=== PATIENT | male | born 1950 | race Caucasian/White ===

== ENCOUNTER 2023-01-11 09:35 | Outpatient (CLI) | payer OTHER, SELFPAY ==
--- NOTE | 2023-01-11 09:30 | RT.EKG_ITS ---
APPROVED REPORT Exam: Resting ECG Reason for Exam: afib Patient Location: O HR:80 bpm ECG Measurements Heart Rate 80 AXIS CO [id number] P [id number] QRSd 149 QRS 11 QT 446 T 75 QTc 515 Conclusion Atrial fibrillation...V-rate 74- 85, irreg A-activity Left bundle branch block...QRSd>120, broad/notched R Baseline wander in lead(s) III
== END 2023-01-11 09:36 | disposition home or self-care (01) ==
LOC: DI.CARD 09:35
PROVIDERS: PCP Nurse Practitioner Family; Visit Provider Internal Medicine Cardiovascular Disease
DX: I48.0 Paroxysmal atrial fibrillation
CPT/HCPCS: 93010

== ENCOUNTER → 2023-01-11 13:53 | Outpatient (BNVA) | payer OTHER, SELFPAY | PROVIDERS: PCP Nurse Practitioner Family; Referring Provider Nurse Practitioner Family; Visit Provider Internal Medicine Cardiovascular Disease | DX: Z95.2 Presence of prosthetic heart valve (principal); I48.0 Paroxysmal atrial fibrillation; I44.7 Left bundle-branch block, unspecified | CPT/HCPCS: 93005; 99203 ==

== ENCOUNTER 2023-02-19 03:17 | Outpatient (CLI) | payer OTHER, SELFPAY ==
[2023-02-19 12:32] LABS: HCT 36.3 % (40.0-50.0); MCH 24.3 pg (27.0-33.0); MCHC 30.3 % (32.0-36.0); MCV 80 fL (80-95); MPV 9.6 fL (8.0-11.0); Platelet Count 210 10^3/uL (130-400); RBC 4.52 10^6/uL (4.36-5.78); RDW-SD 64.3 fL; WBC 8.84 10^3/uL (4.4-10.8)
[2023-02-19 12:53] LABS: ALT 18 U/L (16-63); AST 20 U/L (15-37); Alkaline Phosphatase 70 U/L (46-116); Anion Gap 9.5 mmol/L (3-11); BUN 17 mg/dL (7-18); Bilirubin, Total 0.4 mg/dL (0.2-1.0); CO2 26.5 mmol/L (21.0-32.0); Calcium 8.7 mg/dL (8.5-10.1); Calculated LDL 38 mg/dL (<100); Chloride 104 mmol/L (98-107); Cholesterol 107 mg/dL (<200); Estimated GFR 80.47 (mL/min/1.73m2); Glucose 117 mg/dL (74-106); HDL Cholesterol 31 mg/dL (40-60); Potassium 4.6 mmol/L (3.5-5.1); Sodium 140 mmol/L (136-145); Total Protein 6.6 g/dL (6.4-8.2); Triglyceride 193 mg/dL (<150)
[2023-02-19 13:04] LABS: RDW 22.2 % (11.8-14.1)
== END 2023-02-19 03:18 | disposition home or self-care (01) ==
LOC: LOS 03:17
PROVIDERS: PCP Nurse Practitioner Family; Visit Provider Nurse Practitioner Family
DX: I10 Essential (primary) hypertension (principal); D64.9 Anemia, unspecified; E78.5 Hyperlipidemia, unspecified; I25.10 Atherosclerotic heart disease of native coronary artery without angina pectoris; J45.909 Unspecified asthma, uncomplicated; Z95.5 Presence of coronary angioplasty implant and graft
CPT/HCPCS: 36415; 80053; 80061; 85027

== ENCOUNTER 2023-03-22 19:39 | Outpatient (REF) | payer OTHER, SELFPAY ==
[2023-03-24 10:15] LABS: Salmonella PCR Negative (Negative); Shiga Toxin PCR Negative (Negative); Shigella/Enteroinvasive Ecoli Negative (Negative)
[2023-03-24 13:39] LABS: Campylobacter PCR Positive (Negative)
== END 2023-03-22 19:40 | disposition home or self-care (01) ==
LOC: LBN 19:39
PROVIDERS: PCP Nurse Practitioner Family; Visit Provider Family Medicine
DX: R19.7 Diarrhea, unspecified (principal)
CPT/HCPCS: 87505

== ENCOUNTER → 2023-04-02 12:37 | Outpatient (BNVA) | payer OTHER, SELFPAY | PROVIDERS: PCP Nurse Practitioner Family; Referring Provider Nurse Practitioner Family; Visit Provider Surgery | DX: R19.7 Diarrhea, unspecified (principal); K64.8 Other hemorrhoids; K59.09 Other constipation; K22.70 Barrett's esophagus without dysplasia | CPT/HCPCS: 99215; 99243 ==

== ENCOUNTER → 2023-04-16 01:11 | Outpatient (CLI) | payer OTHER, SELFPAY ==
--- NOTE | 2023-04-16 07:30 | DI.US_ITS ---
Exam(s) US ABDOMEN EXAM: US ABDOMEN CLINICAL HISTORY: hx of liver cancer/chemo only/no recent f/u,z92.29,c22.9,anemia TECHNIQUE: Ultrasound abdomen performed using standard protocol. COMPARISON: No exams were available for comparison FINDINGS: ABDOMINAL AORTA AND IVC: Visualized portions normal caliber. PANCREAS: Obscured by overlying bowel gas. LIVER: There is limited visualization of the liver due to body habitus. An MRI of the liver should b e considered for further evaluation. Hepatopedal flow in the Portal Vein. 16.7 cm long. GALLBLADDER:No evidence of cholelithiasis. No evidence of wall thickening. No pericholecystic fluid i dentified. BILIARY SYSTEM: Common bile duct measures < 7 mm. No intrahepatic biliary ductal dilation. CASANOVA'S SIGN: Negative. KIDNEYS: Kidneys are symmetric in size. No evidence of renal calculi. No evidence of hydronephrosis. There is soft tissue fullness seen in the renal pelvis of the left kidney. A mass cannot be excluded . SPLEEN: Not enlarged. ASCITES: None seen. IMPRESSION: 1. This is a limited examination particularly of the liver and left kidney. 2. An MRI of the abdomen to include the both the liver and the kidney is recommended to exclude amari s. DATA REPOSITORY:
== END ==
PROVIDERS: PCP Nurse Practitioner Family; Visit Provider Surgery
DX: C22.9 Malignant neoplasm of liver, not specified as primary or secondary (principal); D50.9 Iron deficiency anemia, unspecified; Z92.29 Personal history of other drug therapy
CPT/HCPCS: 76700

== ENCOUNTER 2023-05-11 01:51 | Outpatient (CLI) | payer OTHER, SELFPAY ==
[2023-05-11 12:23] LABS: Abs Immature Grans 0.02 10^3/uL (0.0-0.06); Absolute Basophil Count 0.06 10^3/uL (0.0-0.2); Absolute Eosinophil Count 0.36 10^3/uL (0.0-0.7); Absolute Monocyte Count 0.48 10^3/uL (0.1-0.8); Absolute Neutrophil Count 4.55 10^3/uL (1.2-6.7); Basophils % 0.9; Eosinophils % 5.6; HCT 38.4 % (40.0-50.0); HGB 12.5 g/dL (13.5-17.5); Immature Grans % 0.3; Lymphocytes % 15.5; MCH 28.1 pg (27.0-33.0); MCHC 32.6 % (32.0-36.0); MCV 86 fL (80-95); MPV 10.3 fL (8.0-11.0); Monocytes % 7.4; Neutrophils % 70.3; Platelet Count 159 10^3/uL (130-400); RBC 4.45 10^6/uL (4.36-5.78); RDW 16.5 % (11.8-14.1); RDW-SD 52.1 fL; WBC 6.47 10^3/uL (4.4-10.8)
[2023-05-11 13:20] LABS: Ferritin 40 ng/mL (26-388); Vitamin B12 317 pg/mL (193-986)
[2023-05-11 13:21] LABS: Folate > 20.0 ng/mL (8.6-20.0)
== END 2023-05-11 01:52 | disposition home or self-care (01) ==
LOC: LBO 01:51
PROVIDERS: PCP Nurse Practitioner Family; Visit Provider Surgery
DX: I10 Essential (primary) hypertension (principal); I25.10 Atherosclerotic heart disease of native coronary artery without angina pectoris; E78.5 Hyperlipidemia, unspecified; R19.7 Diarrhea, unspecified; Z92.29 Personal history of other drug therapy; K22.70 Barrett's esophagus without dysplasia
CPT/HCPCS: 36415; 82607; 82728; 82746; 85025

== ENCOUNTER → 2023-05-17 11:11 | Outpatient (BNVA) | payer OTHER, SELFPAY | PROVIDERS: PCP Nurse Practitioner Family; Referring Provider Nurse Practitioner Family; Visit Provider Surgery | DX: D64.9 Anemia, unspecified (principal); I25.10 Atherosclerotic heart disease of native coronary artery without angina pectoris; E78.5 Hyperlipidemia, unspecified; Z85.028 Personal history of other malignant neoplasm of stomach | CPT/HCPCS: 99213 ==

== ENCOUNTER 2023-05-25 10:45 | Day surgery (SDC) | payer OTHER, SELFPAY ==
--- NOTE | 2023-05-24 21:56 | W.PM.ENDDOP ---
Date of service: 05/25/23 Time of Service: 13:05 Endoscopy Report DATE OF PROCEDURE: 05/25/23 PRE-OP DIAGNOSIS: Anemia/history of gastric ulcers/gastric resection for cancer POST-OP DIAGNOSIS: other (X2 anastomotic ulcers/mild gastritis/ small hiatal hernia/ Queen's esophagus) SURGEON: Collette Ugarte ANESTHESIA TYPE: General:No Airway ESTIMATED BLOOD LOSS: 4 PATHOLOGY: other COMPLICATIONS: None DISPOSITION: same day PROCEDURE DESCRIPTION: After informed consent was obtained the patient was take to the procedure room and placed in a supine position. Monitors were applied and a time out was done. The patients name, date of , procedure type, allergies to medications and metal in their body was reviewed. A bite block was placed and the patient was sedated. Once sedated and comfortable the gastroscope was advanced through the oropharynx which was grossly normal into the esophagus. He has some erosions in the upper esophagus that appeared to be more chronic in nature. A biopsy of this was taken. In the distal esophagus there was no: Varices/diverticula/stenosis. The scope was advanced into the stomach. Patient has had a previous distal gastrectomy. He is to ulcers with overlying eschar at the anastomosis. There is no signs of active or old bleeding. Biopsies were taken. The scope is passed into the jejunal limb. The mucosa appears pink and healthy. Biopsy was taken. There are some mild gastritis in the body of the stomach. A biopsy was taken along the greater curve. There is no sign of any tumor recurrence. Biopsies were done, all specimens are retrieved and no bleeding is noted.. The scope was retracted back into the stomach and biopsies were done to rule out H. pylori. The scope was retroflexed. The cardia and fundus were noted to be normal. There small less than 2 cm sliding-type hiatal hernia a hiatal hernia noted. The scope was retracted back into the esophagus and biopsies were done of the GE, The Z line was irregular. He had multiple islands indicative of Queen's. Multiple biopsies were taken. There is no active assessment esophagitis. The GE junction was at 38 cm. The scope was removed and the patient was woken up and taken back to [facility] in stable condition.
--- NOTE | 2023-05-24 21:57 | W.PM.DSUDISC ---
Date of service: 05/25/23 Time of Service: 13:08 Discharge Plan Disposition Patient Disposition: Home Condition: Good Discharge Details Reason For Visit: Stomach scope Attending Provider: Collette Ugarte Primary Care Provider: Drea Martines Home Meds and New Rx's Prescriptions: New pantoprazole [Protonix] 40 mg tablet,delayed release (DR/EC) 40 mg PO DAILY Qty: 90 12RF Continued famotidine 20 mg tablet 20 mg PO BID Qty: 180 3RF metoprolol succinate 50 mg tablet extended release 24 hr 50 mg PO DAILY Qty: 90 3RF albuterol sulfate [ProAir HFA] 90 mcg/actuation HFA aerosol inhaler 2 puff inhalation Q6H PRN (Reason: shortness of breath or wheezing) Qty: 8.5 3RF alfuzosin 10 mg tablet extended release 24 hr 10 mg PO DAILY Qty: 90 3RF Rx Instructions: administer after the same meal each day amlodipine 10 mg tablet 10 mg PO DAILY Qty: 90 3RF bupropion HCl 150 mg tablet sustained-release 12 hr 150 mg PO QAM Qty: 90 3RF Trelegy Ellipta 100-62.5-25 mcg blister with device 1 inh inhalation DAILY Qty: 60 3RF furosemide 20 mg tablet 20 mg PO DAILY Qty: 90 3RF lisinopril 20 mg tablet 20 mg PO DAILY Qty: 90 3RF paroxetine HCl 20 mg tablet 20 mg PO DAILY Qty: 90 3RF rosuvastatin 20 mg tablet 20 mg PO DAILY Qty: 90 3RF hydrocortisone acetate [Anusol-HC] 25 mg suppository 25 mg TN BID PRN (Reason: hemorrhoids) Qty: 24 1RF cyclobenzaprine 5 mg tablet 5 mg PO TID PRN (Reason: back pain) Qty: 14 0RF Rx Instructions: Take 1 tablet by mouth three times a day as needed for back pain sucralfate [Carafate] 1 gram tablet 1 g PO QACHS Qty: 120 12RF melatonin 10 mg tablet 10 mg PO DAILY PRN ferrous sulfate 325 mg (65 mg iron) tablet 325 mg PO DAILY Qty: 90 1RF Rx Instructions: Take 1 tablet once a day with your vitamin c or a glass of orange juice Held Eliquis 5 mg tablet 5 mg PO BID Qty: 180 3RF Hold Instructions: Resume on 05/27/23. Discontinued omeprazole 20 mg capsule,delayed release(DR/EC) 20 mg PO BID Qty: 180 3RF Discharge Instructions Additional Instructions: Post EGD Instruction ?You had anesthesia for your EGD/stomach scope today.? For your safety, please do the following for the next twenty-four (24) hours: Do Not operate a motor vehicle (car, truck, motorcycle, etc.) Do Not drink alcoholic beverages or use any recreational drugs for the first 24 hours or while taking pain medications. The medications in your body may have a reaction that can be dangerous. Do Not make any important decisions or sign any important papers You have just had a gastroscopy (EGD) or upper GI tract examination. It is important for your smooth recovery that you carefully follow the recommendations below. Do not hesitate to call if any questions should arise about your anesthesia, condition, or care. -Symptoms you may experience during the next 24 hours: ?1. Mild abdominal pain or excessive gas or a bloated feeling which improves with rest, liquids, eating? slightly, and walking as tolerated. 2. Drowsiness and/or forgetfulness because of the medications you were given. ?3. Throat numbness for about 1 hour. 4. A sore throat which you can treat with throat lozenges or by gargling with salt water 4-5 times a day. 5. Redness at the site of your IV which you can treat with warm compresses. SPECIAL INSTRUCTIONS: 1. You may resume your previous diet in one hour. We recommend a light meal to start, then progress as tolerated. 2. Restart regular medications in one hour. 3. No aspirin or non-steroidal containing medication for three days. 4. No lifting over 20 pounds or strenuous activity for the first 24 hours after your procedure. After 24 hours there are no restrictions on your activity, but you may feel fatigued for a few days. Findings: bleeding ulcers Medications: -Continue Pepcid and Carafate as previously prescribed. Stop omeprazole Start Protonix once a day Follow-up in clinic in 2 weeks / lab work prior to the appointment. -Resume Eliquis on Sunday -Continue to follow lifest prescribedyle modifications: No alcohol, tobacco products, Aspirin or NSAID's (ibuprofen, Motrin, Naprosyn, aleve, etc).? Try to limit/avoid:? soda pop/any carbonated beverages, caffeine (including tea & chocolate), and acidic foods, (tomatoes, citrus, onions, peppermints) spicy or fried/fatty foods. Do not lie down for 30 minutes after eating, and do not eat 2 hours prior to bedtime. Avoid wearing tight fitting clothing/ belts. Call the office at [phone] (Office) or [phone] (Hospital), or go to the ER right away if you notice any of the followin. Vomiting blood and /or ?coffee ground? material. ?2. Worsening of abdominal pain or cramping. ?3. Trouble with breathing, cough, and/or fever (temperature above 101.5 F). 4. Increasing pain with swallowing. ?5. Chest pain. 6. Any new symptoms. 7. Worsening of the redness at the IV site Activity:: See above Diet:: See above Discharge Orders Discharge Orders: Discharge Order (Routine); Ordered 05/25/23 Ordered By: Collette Ugarte DS: Diagnosis Discharge Diagnosis (1) Essential hypertension: Status: Acute (2) Coronary arteriosclerosis: Status: Acute (3) Hyperlipidemia: Status: Acute (4) Asthma: Status: Chronic (5) Anxiety: Status: Chronic (6) Heartburn: Status: Acute (7) Anemia: Status: Chronic (8) GERD (gastroesophageal reflux disease): Status: Chronic (9) LBBB (left bundle branch block): Status: Acute (10) Paroxysmal atrial fibrillation: Status: Acute (11) Diarrhea: Status: Acute (12) Hx of residential use of blood thinners: Status: Acute (13) Hiatal hernia with GERD: Status: Acute (14) Gastric cardia ulcer: Status: Acute (15) Microcytic anemia: Status: Acute (16) Esophageal candidiasis: Status: Acute (17) History of cigarette smoking: Status: Acute (18) Emphysema lung: Status: Acute (19) Chronic constipation: Status: Acute (20) Left atrial dilation: Status: Acute (21) 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 Patient has minimal sore throat.? They have been able to tolerate liquids.? They do not have any nausea vomiting.? They are not having any chest pain or shortness of breath.? They have been able to pass gas and are not having any abdominal pain or distention.? They have not vomited any blood.? The vital signs have been stable-see nursing notes. We discussed findings on their endoscopy. We reviewed the importance of lifestyle modification-see discharge instructions We reviewed any new medications that the patient may be prescribed-see discharge instructions Patient will either be sent a letter with the biopsy results or follow-up in the office-see discharge instructions. Patient was given explicit instructions to follow-up regarding post endoscopy-refer to discharge Patient verbalized understanding and discharged in stable and satisfactory condition.? See nursing notes. (27) Liver cancer: (28) Myocardial infarct, old: (29) PTSD (post-traumatic stress disorder): (30) Stomach cancer:
[2023-05-25 11:41] VITALS: BP 146/98; PULSE 81; RESP 18; TEMP 36.7; O2SAT 99
[2023-05-25] MEDS: Lactated Ringers 1,000 ML 80 ML IV (11:56)
--- NOTE | 2023-05-25 12:02 | W.ANESPRE ---
General Info Date of Service Date Performed: 05/25/23 Height: 6 ft Weight: 87.2 kg Body Mass Index (BMI): 26.0 Surgical Procedure: Operation Date: 05/25/23 12:05 Proposed Procedure Side Surgeon p Gastroscopy Collette Ugarte, Meds Allergies and Home Medications Allergies Allergy/AdvReac Type Severity Reaction Status Date / Time fenofibrate Allergy Unknown Verified 05/25/23 11:28 Home Medication Medication Instructions Recorded melatonin 10 mg tablet 10 mg PO DAILY PRN 12/20/22 albuterol sulfate 90 mcg/actuation 2 puff inhalation Q6H PRN 12/27/22 aerosol inhaler (ProAir HFA) shortness of breath or wheezing #8.5 grams alfuzosin 10 mg tablet,extended 10 mg PO DAILY #90 tabs 12/27/22 release 24 hr amlodipine 10 mg tablet 10 mg PO DAILY #90 tabs 12/27/22 apixaban 5 mg tablet (Eliquis) 5 mg PO BID #180 tabs 12/27/22 bupropion HCl 150 mg tablet,12 hr 150 mg PO QAM #90 tabs 12/27/22 sustained-release famotidine 20 mg tablet 20 mg PO BID #180 tabs 12/27/22 fluticasone fur. 100 mcg-umeclid 1 inh inhalation DAILY #60 ea 12/27/22 62.5 mcg-vilant 25 mcg inhalat.powder (Trelegy Ellipta) furosemide 20 mg tablet 20 mg PO DAILY #90 tabs 12/27/22 lisinopril 20 mg tablet 20 mg PO DAILY #90 tabs 12/27/22 metoprolol succinate 50 mg 50 mg PO DAILY #90 tabs 12/27/22 tablet,extended release 24 hr omeprazole 20 mg capsule,delayed 20 mg PO BID #180 caps 12/27/22 release paroxetine HCl 20 mg tablet 20 mg PO DAILY #90 tabs 12/27/22 rosuvastatin 20 mg tablet 20 mg PO DAILY #90 tabs 12/27/22 cyclobenzaprine 5 mg tablet 5 mg PO TID PRN back pain #14 tabs 02/06/23 hydrocortisone acetate [address] BID PRN hemorrhoids #24 ea 02/06/23 rectal suppository (Anusol-HC) ferrous sulfate 325 mg (65 mg 325 mg PO DAILY #90 tabs 03/13/23 iron) tablet sucralfate 1 gram tablet (Carafate) 1 g PO QACHS #120 tabs 04/03/23 Current Visit Medications: Current Medications Generic Name Dose Route Start Last Admin Trade Name Samq PRN Reason Stop Dose Admin Hyoscyamine Sulfate 0.125 mg 05/25/23 04:27 Hyoscyamine 0.125 Mg Sl/Oral/Chew SL 06/24/23 04:26 DIRECTED PRN Ringer's Solution 1,000 mls @ 80 mls/hr 05/25/23 06:00 IV 05/25/23 23:59 [facility] IV Miscellaneous Supplies 1 each 05/25/23 06:00 Iv Access IV 05/25/23 23:59 DIRECTED MANPREET Ondansetron HCl 4 mg 05/25/23 04:27 Ondansetron 4 Mg/2 Ml Vial IVP 06/24/23 04:26 Q4H PRN PRN Nausea / Vomiting Sodium Chloride 0 ml 05/25/23 06:00 Normal Saline Flush 10 Ml Syr IV 05/25/23 23:59 PRN PRN Sodium Chloride 0 ml 05/25/23 06:00 Normal Saline 10 Ml Vial IJ 05/25/23 23:59 DIRECTED PRN Sterile Water 0 ml 05/25/23 06:00 Water,Injection,Sterile 10 Ml Vial IJ 05/25/23 23:59 DIRECTED PRN PFSH Active Problems Active Problems: Problem Status Onset Code Essential hypertension I10 Coronary arteriosclerosis I25.10 Hyperlipidemia E78.5 Asthma J45.909 Anxiety F41.9 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 Heartburn R12 Anemia D64.9 Impotence of organic origin N52.9 GERD (gastroesophageal reflux disease) K21.9 LBBB (left bundle branch block) I44.7 Paroxysmal atrial fibrillation I48.0 Diarrhea R19.7 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.29 Hiatal hernia with GERD K21.9, K44.9 Gastric cardia ulcer K22.10 Microcytic anemia D50.9 Esophageal candidiasis B37.81 Adenomatous polyps D36.9 History of cigarette smoking Z87.891 Emphysema lung J43.9 External hemorrhoid K64.4 Chronic constipation K59.09 Left atrial dilation I51.7 Mitral regurgitation I34.0 Carotid stenosis, asymptomatic I65.29 Internal hemorrhoids without complication K64.8 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 K22.70 History of gastric cancer Z85.028 History of malignant neoplasm metastatic to liver Z85.89 Medical History Medical History Aortic stenosis w TAVR in [place] 05/31/22 [place] History of gastrectomy Liver cancer Myocardial infarct, old w stent placed in [place] 2001 PTSD (post-traumatic stress disorder) Stomach cancer Surgical History Surgical History H/O left knee surgery H/O rotator cuff surgery (~01/19/09) Right History of appendectomy History of colonoscopy History of esophagogastroduodenoscopy (EGD) History of Titi-en-Y gastric bypass Hx of heart artery stent x3 in [place] 2001 Hx of tonsillectomy Tobacco Smoking/Tobacco Use Status: Former Tobacco Use Passive smoking exposure: Yes Second hand exposure: Yes Alcohol Alcohol Intake: former Substance Use Substance use type: former substance user Vital Signs and Lab Results Vital Signs Most Recent Vital Signs in EMR: Most Recent Vital Signs Temp Pulse Resp BP Pulse Ox 36.7 C 81 18 146/98 H 99 05/25/23 11:41 05/25/23 11:41 05/25/23 11:41 05/25/23 11:41 05/25/23 11:41 Lab Results Blood Type / Crossmatch: No Data to Display Complete Blood Count: White Blood Count 6.47 10^3/uL (4.4-10.8) 05/11/23 12:05 Red Blood Count 4.45 10^6/uL (4.36-5.78) 05/11/23 12:05 Hemoglobin 12.5 g/dL (13.5-17.5) L 05/11/23 12:05 Hematocrit 38.4 % (40.0-50.0) L 05/11/23 12:05 Platelet Count 159 10^3/uL (130-400) 05/11/23 12:05 Complete Metabolic Panel: No Data to Display Liver Function Panel: No Data to Display Coagulation Panel: No Data to Display Cardiac Panel: No Data to Display Arterial Blood Gas: No Data to Display Venous Blood Gas: No Data to Display Pancreas Panel: No Data to Display Thyroid Panel: No Data to Display Infectious Disease: No Data to Display Blood Cultures: No Data to Display Toxicology Panel: No Data to Display Imaging and Studies Imaging and Studies Study information below may be from another EMR and interpreted by another provider. Please see original notes in EMR for more complete details. EKG Summary: Conclusion Atrial fibrillation...V-rate 74- 85, irreg A-activity Left bundle branch block...QRSd>120, broad/notched R Baseline wander in lead(s) III 01/11/23 Echocardiogram Summary: YISSEL 2021 Mild to moderate MR, normal function of prosthetic aortic valve Anesthesia Assessment and Plan Anesthesia History Personal History: No History of Anesthesia Complications Family History: No Family History of Anesthesia Complications Exercise Tolerance Exercise Tolerance: Metabolic Equivalents<4 Pertinent Negatives Pertinent Negatives: No Symptoms of GERD, No Major Cardiovascular Symptoms or Complaints and No Major Pulmonary Symptoms or Complaints Cardiac & Pulmonary Exam Cardiac Exam: Normal S1/S2 Heart Sounds Pulmonary Exam: Clear Bilateral Breath Sounds Implantable Cardiac Device Does patient have a Pacemaker or an ICD?: No Airway Exam Known Difficult Airway: No Mallampati Class: 1 Mouth Opening: Normal (> 3cm) Thyromental Distance: Greater than 3 cm Neck Range of Motion: Full ROM Neck Circumference: Normal Teeth Condition: Edentulous ASA Classification ASA Score: ASA 3 Emergency Case?: No NPO Status NPO Status: NPO Clears >2 hours, Solids >8 hours Anesthesia Plan Resuscitation Status: Full Code Anesthesia Technique: General Anesthesia Airway Planned: Natural Airway Monitors Used: Standard Monitors
[2023-05-25 12:03] VITALS: BMI 26.0
--- NOTE | 2023-05-25 12:42 | STOM_PTH ---
PATIENT: Agustin Bain LOC: [facility] U#:[id number] AGE/SX: 73/M ROOM: RE05/25/[address]: Collette Ugarte : 1950 BED: DIS: 05/25/2023 SPEC #: [id number] RECD: 05/25/23 17:54 STATUS: JULITO MCCORMACK #: [id number] YARELI: 05/25/23 12:[address]: Collette Ugarte DEPT: Surgical Specimen RECD BY: Nella Guevara ENTERED: 05/25/23 17:58 SP TYPE: STOMACH OTHR DR: Drea Martines, GUIDE DOG INSTRUCTOR Tissues: 1 - BIOPSY BOWEL 2 - BIOPSY BOWEL 3 - STOMACH BIOPSY 4 - ESOPHAGUS BIOPSY 5 - ESOPHAGUS BIOPSY 6 - ESOPHAGUS BIOPSY Procedures: GROSS AND MICRO LEVEL 4 Comments: [id number]
[2023-05-25 12:55] VITALS: BP 99/75; PULSE 96; RESP 16; TEMP 36.3; O2SAT 96
[2023-05-25 13:30] VITALS: BP 123/97; PULSE 88; RESP 18; TEMP 36.2; O2SAT 98
--- NOTE | 2023-05-25 14:19 | W.ANESPOSTOP ---
Postoperative Evaluation Date, Time and Location Date Performed: 05/25/23 Time Performed: 14:04 Patient Location: Day Surgery Unit Vital Signs Most Recent Imported Vital Signs: Most Recent Vital Signs Temp Pulse Resp BP Pulse Ox 36.2 C L 88 18 123/97 H 98 05/25/23 13:30 05/25/23 13:30 05/25/23 13:30 05/25/23 13:30 05/25/23 13:30 Pain Score Most Recent Pain Score: Most Recent Pain Score Pain Level 0 05/25/23 13:30 Assessment Mental Status: Awake (Alert & Oriented to Patient Baseline) Airway and Respiratory Function: Patent airway with normal (patient baseline) respiratory exam Cardiovascular Function: Hemodynamically Stable Hydration Status: Adequately Hydrated Nausea & Vomiting: No Nausea or Vomiting Pain: Pt. Denies Any Pain Peripheral Nerve Block: Patient did not receive a nerve block
== END 2023-05-25 14:10 | disposition home or self-care (01) ==
PROVIDERS: PCP Nurse Practitioner Family; Visit Provider Surgery
PROC: 0DJ68ZZ Inspection of Stomach, Via Natural or Artificial Opening Endoscopic (ICD-10-PCS; CPT 43235; principal; 2023-05-25 12:00)
DX: K28.9 Gastrojejunal ulcer, unspecified as acute or chronic, without hemorrhage or perforation (principal); D64.9 Anemia, unspecified; K29.70 Gastritis, unspecified, without bleeding; K44.9 Diaphragmatic hernia without obstruction or gangrene; K22.70 Barrett's esophagus without dysplasia; Z85.028 Personal history of other malignant neoplasm of stomach; Z98.0 Intestinal bypass and anastomosis status; Z90.3 Acquired absence of stomach [part of]
CPT/HCPCS: 43239; 88305; J2001

== ENCOUNTER 2023-05-28 18:59 | Outpatient (CLI) | payer OTHER, SELFPAY ==
[2023-05-28 13:47] LABS: Abs Immature Grans 0.01 10^3/uL (0.0-0.06); Absolute Basophil Count 0.04 10^3/uL (0.0-0.2); Absolute Eosinophil Count 0.62 10^3/uL (0.0-0.7); Absolute Monocyte Count 0.52 10^3/uL (0.1-0.8); Absolute Neutrophil Count 3.39 10^3/uL (1.2-6.7); Basophils % 0.7; Eosinophils % 10.9; HCT 41.5 % (40.0-50.0); HGB 13.4 g/dL (13.5-17.5); Immature Grans % 0.2; Lymphocytes % 19.4; MCH 28.2 pg (27.0-33.0); MCHC 32.3 % (32.0-36.0); MCV 87 fL (80-95); Monocytes % 9.2; Neutrophils % 59.6; Platelet Count 154 10^3/uL (130-400); RBC 4.76 10^6/uL (4.36-5.78); RDW 15.6 % (11.8-14.1); RDW-SD 49.7 fL; WBC 5.68 10^3/uL (4.4-10.8)
== END 2023-05-28 19:00 | disposition home or self-care (01) ==
LOC: LBO 19:00
PROVIDERS: PCP Nurse Practitioner Family; Visit Provider Surgery
DX: K25.0 Acute gastric ulcer with hemorrhage (principal)
CPT/HCPCS: 36415; 85025

== ENCOUNTER → 2023-06-08 02:54 | Outpatient (CLI) | payer OTHER, SELFPAY ==
--- NOTE | 2023-06-08 08:00 | DI.MRI_ITS ---
Exam(s) MR ABDOMEN WO/W EXAM: MR ABDOMEN WO/W CLINICAL HISTORY: f/u abnl us,h/o gastric ca and mets to liver,exclude mass liver, and kidney TECHNIQUE: Multiplanar multisequence MRI was performed with both pre and post contrast infused seque nces. Contrast injected sequences were performed following IV injection of 18 cc of Dotarem. COMPARISON: US US ABDOMEN from 04/16/2023 FINDINGS: Images are submitted for interpretation 06/12/2023 VISUALIZED LUNG BASES: No pleural effusions. There is no ascites evident. LIVER: Liver size is normal. There are no significant focal findings in the right hepatic lobe. How ever, in the left hepatic lobe there is a well-defined 3 x 3 cm round ???lesion??? which is significa nt atypical in appearance, possibly artifact. This will require CT study subtle with IV contrast. BILIARY: There is no obvious gallbladder pathology. The CBD is not dilated. PANCREAS: There is no evidence of pancreatic mass nor dilatation of the pancreatic duct. SPLEEN: Spleen size normal. ADRENALS: There are no significant adrenal masses. KIDNEYS: Right kidney unremarkable. Finding in the posterior aspect of the left kidney has the appea seema of a probable subcapsular hematoma measuring 3 cm wide by 0.8 cm thick. No other focal left ki dney findings. No hydronephrosis on either side.No solid renal mass evident. No cysts. ABDOMINAL AORTA: Not enlarged and there is no significant para-aortic adenopathy. ANTERIOR ABDOMINAL WALL/GI: There is no evidence of significant anterior abdominal wall hernia in the field of view of this study.Is no evidence of obvious bowel obstruction. OSSEOUS: There are no lytic osseous lesions in the field of view of this study. IMPRESSION: 1. Solitary 3 x 3 cm around abnormality in the left hepatic lobe which does not exhibit signal charac teristics of a typical type of lesion. I suspect that this may be possibly artifact. For this reaso n I recommend that this patient return for contrast infused multiphase CT scan. 2. Finding in the posterior aspect of the left kidney has the appearance of a small subcapsular hemat brynn. No other significant focal renal findings. No hydronephrosis. DATA REPOSITORY:
[2023-06-08 13:04] LABS: CREATININE 0.9 mg/dL (0.70-1.30); Estimated GFR 90.74 (mL/min/1.73m2)
[2023-06-08] MEDS: Normal Saline - Diluent 50 ML VIAL IJ (13:25)
[2023-06-08] MEDS: Gadoterate meglumine 20 ML VIAL 18 ML IVP (13:26)
== END ==
PROVIDERS: PCP Nurse Practitioner Family; Visit Provider Surgery
DX: K25.0 Acute gastric ulcer with hemorrhage (principal); Z01.818 Encounter for other preprocedural examination; I10 Essential (primary) hypertension
CPT/HCPCS: 74183; 82565

== ENCOUNTER → 2023-06-14 11:19 | Outpatient (BNVA) | payer OTHER, SELFPAY | PROVIDERS: PCP Nurse Practitioner Family; Referring Provider Nurse Practitioner Family; Visit Provider Surgery | DX: K25.0 Acute gastric ulcer with hemorrhage (principal); K21.9 Gastro-esophageal reflux disease without esophagitis; R12 Heartburn; D50.9 Iron deficiency anemia, unspecified | CPT/HCPCS: 99214 ==

== ENCOUNTER → 2023-06-28 00:59 | Outpatient (CLI) | payer OTHER, SELFPAY ==
--- NOTE | 2023-06-28 14:00 | DI.US_ITS ---
APPROVED REPORT EXAM: Comprehensive 2D, Doppler, and color-flow Echocardiogram Patient Location: Out-Patient Line Producer: Paige Prescott RDCS (AE) Indications: Status post TAVR, HTN, Atrial Fibrillation, Aortic stenosis Other Information Study Quality: Fair. Technically limited study due to body habitus. Conclusion Normal left ventricular wall thickness and chamber size. Ejection fraction is 55%. Wall motion is n ormal Normal right ventricular size and systolic function Both atria are moderately dilated There is a bioprosthetic aortic valve. Mean gradient is 8 mmHg . there is mild aortic regurgitation which appears paravalvular Mitral annular calcification, moderate mitral regurgitation Estimated right ventricular systolic pressure is 24 mmHg Wall motion Left Ventricle Technically limited parasternal imaging. The overall left ventricular systolic function appears brittany l. There is normal LV segmental wall motion. There is no ventricular septal defect visualized. LVEF i s 55%. Right Ventricle The right ventricle is normal size. The right ventricular systolic function is normal. Atria Left atrium is moderately dilated. Right atrium is moderately dilated. The interatrial septum is int act with no evidence for an atrial septal defect. Aortic Valve TAVR aortic valve present. There is no aortic valvular stenosis. mild aortic regurgitation. Mitral Valve Mild mitral annular calcification. No evidence of mitral valve stenosis. Moderate mitral regurgitatio n. Tricuspid Valve The tricuspid valve is normal in structure. There is no tricuspid valve stenosis. Trace tricuspid reg urgitation. The RVSP is 24.3 mmHg. Pulmonic Valve Pulmonic valve is not well visualized. There is no pulmonic valvular stenosis. There is no pulmonic v alvular regurgitation. Great Vessels The aortic root is normal in size. Ascending aorta is not well visualized. Aortic arch is normal in c aliber. IVC is normal in size and collapses >50% with inspiration. Pericardium There is no pericardial effusion. M-Mode TAPSE 1.86 cm (M/F) >1.7 Auto EF LV EDV A4C 114.5 mL LV EDV A2C 123.0 mL LV EDV BP 120.7 mL LV ESV A4C 54.6 mL LV ESV A2C 56.6 mL LV ESV BP 56.1 mL LVEF(%) A4C 52.3 % LVEF(%) A2C 54.0 % LVEF(%) BP 53.5 % LV SV A4C 59.9 ml LV SV A2C 66.4 ml LV SV BP 64.6 ml LV CO A4C 4.7 L/min LV CO A2C 4.9 L/min LV CO BP 4.8 L/min HR A4C 78.09 BPM HR A2C 73.92 BPM LV EDV Index (BP) LA Volume LA Length A4C 5.4 cm LA Length A2C 5.7 cm LA Area A4C s 20.43 cm2 LA Area A2C s 25.95 cm2 LA Vol A4C A-L 66.02 mL LA Vol A2C A-L 100.05 mL LA Vol Biplane A-L 83.9 mL LA Vol/BSA A4C A-L LA Vol/BSA A2C A-L LA Vol/BSA BP A-L 55.9 mL/m2 LA Vol A4C MOD 62.8 mL LA Vol A2C MOD 93.3 mL LA Vol BP MOD 78.8 mL RA Volume RA Area A4C 21.3 cm2 RA ESV A4C (A-L) 67.7mL RA Vol/BSA A4C A-L RA Length A4C 5.7 cm RA ESV A4C (MOD) 64.4mL LV Diastology MV E' medial 0.087 (>0.07 m/s) MV E Vmax 1.47 (0.4-1.3 m/s) MV E/E' MED 16.76 (<14) MV E' lateral 0.123 (>0.1 m/s) MV E/E' LAT 11.90 (<14) MV E' Average 0.105 m/s MV E/E'(average) 13.92 Aortic Valve AoV Vmax 1.85 m/s LVOT Vmax 0.88 m/s AoV Peak Grad 13.7 mmHg LVOT Peak Grad 3.1 mmHg AoV VTI 0.349 m LVOT VTI 0.194 m AoV Mean Sourav. 1.42 m/s LVOT Mean Grad 2.1 mmHg AoV Mean Grad 8.5 mmHg Velocity Ratio 0.48 Mitral Valve MV DT 229 (160-240 msec) MV Vmax TIPS 1.51 m/s MV Mean Grad 2.6 (<2mmHg) MV VTI 0.476 m Pulmonary Valve PV Vmax 0.72 (0.5-1.5 m/s) RVOT Vmax 0.59 m/s PV Peak Grad 2.1 mmHg RVOT Peak Gr. 1.4 mmHg PV Mean Sourav 0.55 m/s RVOT VTI 0.101 m PV Mean Grad 1.3 mmHg RVOT Mean Gr. 0.7 mmHg Tricuspid Valve RA Pressure 3.00 mmHg TR Vmax 2.31 m/s TV S' 0.14 m/s TR Peak Grad 21.2 mmHg RVSP (TR) 24.3 mmHg
== END ==
PROVIDERS: PCP Nurse Practitioner Family; Visit Provider Internal Medicine Cardiovascular Disease
DX: I10 Essential (primary) hypertension (principal); I35.0 Nonrheumatic aortic (valve) stenosis; I48.0 Paroxysmal atrial fibrillation
CPT/HCPCS: 93306

== ENCOUNTER 2023-07-12 12:12 | Outpatient (CLI) | payer OTHER, SELFPAY ==
--- NOTE | 2023-07-12 13:15 | RT.EKG_ITS ---
APPROVED REPORT Exam: Resting ECG Reason for Exam: Patient Location: O HR:69 bpm ECG Measurements Heart Rate 69 AXIS HI [id number] P [id number] QRSd 146 QRS -20 QT 455 T 69 QTc 488 Conclusion Atrial fibrillation...? atrial activity Left bundle branch block...QRSd>120, broad/notched R Baseline wander in lead(s) V4
== END 2023-07-12 12:13 | disposition home or self-care (01) ==
LOC: DI.CARD 13:23
PROVIDERS: PCP Nurse Practitioner Family; Referring Provider Nurse Practitioner Family; Visit Provider Internal Medicine Cardiovascular Disease
DX: R07.9 Chest pain, unspecified (principal)
CPT/HCPCS: 93010

== ENCOUNTER → 2023-07-12 12:12 | Outpatient (BNVA) | payer OTHER, SELFPAY | PROVIDERS: PCP Nurse Practitioner Family; Referring Provider Nurse Practitioner Family; Visit Provider Internal Medicine Cardiovascular Disease | DX: I48.21 Permanent atrial fibrillation (principal); Z79.01 Long term (current) use of anticoagulants; I10 Essential (primary) hypertension; I25.10 Atherosclerotic heart disease of native coronary artery without angina pectoris; I35.1 Nonrheumatic aortic (valve) insufficiency | CPT/HCPCS: 93005; 99214 ==

== ENCOUNTER → 2023-11-15 11:07 | Outpatient (BNVA) | payer OTHER, SELFPAY | PROVIDERS: PCP Nurse Practitioner Family; Referring Provider Nurse Practitioner Family; Visit Provider Physical Therapy Assistant | DX: Z12.11 Encounter for screening for malignant neoplasm of colon (principal); Z86.010 Personal history of colon polyps ==

== ENCOUNTER 2023-11-30 09:45 | Day surgery (SDC) | payer OTHER, SELFPAY ==
--- NOTE | 2023-11-29 20:17 | W.COLOREPORT ---
Date of service: 11/30/23 Time of Service: 11:40 Colonoscopy Report Date of procedure: 11/30/23 Pre-op diagnosis general: Hx of A. polyps Post-op diagnosis procedure note: other (rectal prolapse/internal and external hemorrhoids/thrombosed internal hemorrhoid/pandiverticula/colon polyps) Surgeon: Collette Ugarte Anesthesia Type: General:No Airway Estimated blood loss (mL): 1 Pathology: other Complications: None Disposition: same day Prep: Miralax/Dulcolax Retraction Time: 21 Procedure Description: After informed consent was obtained the patient was taken to the procedure room and placed in a left decubitous position. Monitors were applied and a time out was done. The patients name, date of , procedure, allergies to medications and metal in their body was reviewed. The patient was then sedated. Once sedated and comfortable a rectal exam was done. External exam: Rectal prolapse and poor rectal tone. Internal exam revealed poor sphincter tone and no palpable masses. The prostate no masses palpated today The scope was then introduced and retrofelexed. Grade 3 internal hemorrhoids x 3 columns were identified. One of the hemorrhoids is thrombosed. But we do not have consent to do I&D. The scope was then advanced to the cecum without difficulty. The TI and appendiceal orifice were identified. He does have diverticula on the way to the cecum. There is no signs of active bleeding or infection. He has 5 mm flat polyps both at 70 and 40 cm. These are removed with a cold biting forcep. He has a 1 cm flat polyp at 80 cm. This is removed with a cold snare. All specimens are retrieved and no bleeding is noted. Clips are not required. The scope was then slowly retracted over 21 minutes back into the rectum. The scope was removed and the patient was woken up and taken back to Same day surgery in stable condition. The patient tolerated the procedure well and there were no immediate complications. Follow up: The patient should follow up in 3-5years, path pending, unless they develop changes in bowel habits or other new gastrointestinal complaints. [place] Bowel Prep [place] Bowel Prep Right Colon: 1 (Lesions less than 5 mm may have been missed because of the poor prep on the right side) Left Colon: 3 Transverse Colon: 3 Total Score: 7
--- NOTE | 2023-11-29 20:17 | W.PM.DS.N ---
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: Status: Acute (10) Prediabetes: Status: Acute (11) Hiatal hernia with GERD: Status: Acute (12) GERD (gastroesophageal reflux disease): Status: Chronic (13) 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: Status: Acute (14) External hemorrhoid: Status: Acute (15) Internal hemorrhoids without complication: Status: Acute (16) Anemia: Status: Chronic (17) Adenomatous polyps: Status: Acute (18) Asthma: Status: Chronic (19) Emphysema lung: Status: Acute (20) History of cigarette smoking: Status: Acute (21) Aortic stenosis: (22) Myocardial infarct, old: (23) PTSD (post-traumatic stress disorder): (24) History of gastric cancer: Status: Acute (25) History of malignant neoplasm metastatic to liver: Status: Acute Discharge Plan Disposition Patient Disposition: Home Discharge Details Attending Provider: Collette Ugarte Primary Care Provider: Drea Martines Home Meds and New Rx's Prescriptions: No Action albuterol sulfate [ProAir HFA] 90 mcg/actuation HFA aerosol inhaler 2 puff inhalation Q6H PRN (Reason: shortness of breath or wheezing) Qty: 8.5 3RF hydrocortisone acetate [Anusol-HC] 25 mg suppository 25 mg [place] BID PRN (Reason: hemorrhoids) Qty: 24 1RF cyclobenzaprine 5 mg tablet 5 mg PO TID PRN (Reason: back pain) Qty: 14 0RF Rx Instructions: Take 1 tablet by mouth three times a day as needed for back pain sucralfate [Carafate] 1 gram tablet 1 g PO QACHS Qty: 120 12RF bisacodyl [Dulcolax (bisacodyl)] 5 mg tablet,delayed release (DR/EC) 5 mg PO ONCE Qty: 4 0RF Rx Instructions: Take per colonoscopy instructions provided by ordering providers office polyethylene glycol 3350 17 gram/dose powder 17 g PO ONCE Qty: 238 0RF Rx Instructions: Take per colonoscopy instructions provided by ordering providers office melatonin 10 mg tablet 10 mg PO DAILY PRN ferrous sulfate 325 mg (65 mg iron) tablet 325 mg PO DAILY Qty: 90 1RF Rx Instructions: Take 1 tablet once a day with your vitamin c or a glass of orange juice alfuzosin 10 mg tablet extended release 24 hr 10 mg PO DAILY Qty: 90 3RF Rx Instructions: administer after the same meal each day amlodipine 10 mg tablet 10 mg PO DAILY Qty: 90 3RF Eliquis 5 mg tablet 5 mg PO BID Qty: 180 3RF Hold Instructions: Resume on 05/27/23. bupropion HCl 150 mg tablet sustained-release 12 hr 150 mg PO QAM Qty: 90 3RF famotidine 20 mg tablet 20 mg PO BID Qty: 180 3RF furosemide 20 mg tablet 20 mg PO DAILY Qty: 90 3RF lisinopril 20 mg tablet 20 mg PO DAILY Qty: 90 3RF metoprolol succinate 50 mg tablet extended release 24 hr 50 mg PO DAILY Qty: 90 3RF pantoprazole [Protonix] 40 mg tablet,delayed release (DR/EC) 40 mg PO DAILY Qty: 90 12RF paroxetine HCl 20 mg tablet 20 mg PO DAILY Qty: 90 3RF rosuvastatin 20 mg tablet 20 mg PO DAILY Qty: 90 3RF Discharge Orders Discharge Orders: Discharge Order (Routine); Ordered 11/30/23 Ordered By: Collette Ugarte DS: Summary Quality:SDOH Health Related Social Needs: No Data to Display PFSH All Active Problems (Updated 11/27/23 @ 12:01 by Puneet Ferrara) Prediabetes (Acute) Bleeding acute gastric ulcer (Acute) History of malignant neoplasm metastatic to liver (Acute) History of gastric cancer (Acute) 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 repeat in 2025 Microcytic anemia (Acute) Gastric cardia ulcer (Acute) Hiatal hernia with GERD (Acute) Hx of joint terminal attack controller use of blood thinners (Acute) Diarrhea (Acute) Paroxysmal atrial fibrillation (Acute) new onset 06/17 w TAVR [facility] LBBB (left bundle branch block) (Acute) new 06/17 w TAVR RH GERD (gastroesophageal reflux disease) (Chronic) Impotence of organic origin (Acute) Anemia (Chronic) Heartburn (Acute) Disorder of skull (Acute) Anxiety (Chronic) Asthma (Chronic) Hyperlipidemia (Acute) Coronary arteriosclerosis (Acute) Essential hypertension (Acute) Medical History (Updated 11/27/23 @ 12:01 by Puneet Ferrara) Esophageal candidiasis Liver cancer Stomach cancer PTSD (post-traumatic stress disorder) Pt. requests just tap his foot before waking him up, and call his name before doing anything Aortic stenosis w [place]AVR in [place] 05/31/22 [facility] Myocardial infarct, old w stent placed in [place] 2001 History of gastrectomy Surgical History History of esophagogastroduodenoscopy (EGD) (~04/2023) biopsies taken History of colonoscopy Hx of tonsillectomy History of appendectomy H/O left knee surgery History of Titi-en-Y gastric bypass H/O rotator cuff surgery (~01/19/09) Right Hx of heart artery stent x3 in [place] 2001 Family History Mother , 65 Cancer Heart disease of [place] Hypertension Father , 43 Heart disease [place] at age 43 Diabetes Hypertension Son , 5 Months Cancer SIDS Maternal Grandfather Heart disease Hyperlipidemia Maternal Grandmother Heart disease Hyperlipidemia Paternal Grandmother No problems noted. Social History Smoking/Tobacco Use Status: Former Tobacco Use tobacco type: cigarettes Quit Date: 08/27/74 Tobacco: How many years used: 10 Second Hand Exposure: Yes Smoking risk assessment performed?: Yes Alcohol Intake: former Substance use type: former substance user Household members: significant other Housing: other Communication Needs: None Do you need help understanding health information?: Often Pets and animals: Yes Pets and animals: dog(s) Sexually active: No Do you think of yourself as: straight/heterosexual Current gender identity: male What is your relationship status?: How often do you talk on the phone with friends or family?: once per week How often do you get together with friends or relatives?: never How often do you attend jewish or druze services?: decline to answer Do you belong to any clubs or organized social groups?: no Panel score (0-1 are the most socially isolated patients): 0 What type of physical activity do you participate in: none Frequency: does not exercise Olive/Holiness: None Special olive needs: No Seatbelt use: sometimes Helmet use: Yes Helmet use: sometimes Drive intox or ride w/intox commercial front load 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
--- NOTE | 2023-11-29 20:21 | W.PM.DSUDISC ---
Date of service: 11/30/23 Time of Service: 11:38 Discharge Plan Disposition Patient Disposition: Home Condition: Good Discharge Details Reason For Visit: colon cancer screening Attending Provider: Collette Ugarte Primary Care Provider: Drea Martines Home Meds and New Rx's Prescriptions: Continued albuterol sulfate [ProAir HFA] 90 mcg/actuation HFA aerosol inhaler 2 puff inhalation Q6H PRN (Reason: shortness of breath or wheezing) Qty: 8.5 3RF hydrocortisone acetate [Anusol-HC] 25 mg suppository 25 mg [place] BID PRN (Reason: hemorrhoids) Qty: 24 1RF cyclobenzaprine 5 mg tablet 5 mg PO TID PRN (Reason: back pain) Qty: 14 0RF Rx Instructions: Take 1 tablet by mouth three times a day as needed for back pain sucralfate [Carafate] 1 gram tablet 1 g PO QACHS Qty: 120 12RF melatonin 10 mg tablet 10 mg PO DAILY PRN ferrous sulfate 325 mg (65 mg iron) tablet 325 mg PO DAILY Qty: 90 1RF Rx Instructions: Take 1 tablet once a day with your vitamin c or a glass of orange juice alfuzosin 10 mg tablet extended release 24 hr 10 mg PO DAILY Qty: 90 3RF Rx Instructions: administer after the same meal each day amlodipine 10 mg tablet 10 mg PO DAILY Qty: 90 3RF Eliquis 5 mg tablet 5 mg PO BID Qty: 180 3RF Hold Instructions: Resume on 05/27/23. bupropion HCl 150 mg tablet sustained-release 12 hr 150 mg PO QAM Qty: 90 3RF famotidine 20 mg tablet 20 mg PO BID Qty: 180 3RF furosemide 20 mg tablet 20 mg PO DAILY Qty: 90 3RF lisinopril 20 mg tablet 20 mg PO DAILY Qty: 90 3RF Patient Comments: pt. reports he no longer takes metoprolol succinate 50 mg tablet extended release 24 hr 50 mg PO DAILY Qty: 90 3RF pantoprazole [Protonix] 40 mg tablet,delayed release (DR/EC) 40 mg PO DAILY Qty: 90 12RF paroxetine HCl 20 mg tablet 20 mg PO DAILY Qty: 90 3RF rosuvastatin 20 mg tablet 20 mg PO DAILY Qty: 90 3RF Discontinued bisacodyl [Dulcolax (bisacodyl)] 5 mg tablet,delayed release (DR/EC) 5 mg PO ONCE Qty: 4 0RF Rx Instructions: Take per colonoscopy instructions provided by ordering providers office polyethylene glycol 3350 17 gram/dose powder 17 g PO ONCE Qty: 238 0RF Rx Instructions: Take per colonoscopy instructions provided by ordering providers office Discharge Instructions Additional Instructions: DSU Colonoscopy Post-Op Instructions Instructions for Everyone who is given Anesthesia: For your safety, please do the following for the next twenty-four (24) hours: *Do Not operate a motor vehicle (car, truck, motorcycle, etc.) *Do Not drink alcoholic beverages or use any recreational drugs for the first 24 hours or while taking pain medications. The medications in your body may have a reaction that can be dangerous. *Do Not make any important decisions or sign any important papers. Findings: Incomplete rectal prolapse/thrombosed internal hemorrhoid/internal/external hemorrhoids/escalante diverticula/colon polyps Apixaban-resume Sunday. No aspirin/NSAIDs for 2 weeks. Follow up: My office will send you a letter in 2 to 3 weeks time with the pathology and when we want you to repeat the colonoscopy, most likely 3 to 5 years time. 1. No lifting over 20 pounds or strenuous activity for the first 24 hours after your procedure. After 24 hours there are no restrictions on your activity but you may feel fatigued for a few days. 2. After you arrive home you may have a light meal and return to your normal diet as you can tolerate it without feeling sick to your stomach. 3. You may have a bloated, gaseous feeling in your belly (abdomen) after a colonoscopy. Passing gas and belching will help. Walking or lying down on your left side with your knees flexed may relieve the discomfort. Call the office at [phone] (Office) or [phone] (Hospital) right away if you notice any of the following: a.Vomiting of blood or ?coffee ground stools?. b.Rectal bleeding 1Tbsp, blood clots or continuous bleeding. c.Severe belly (abdominal) pain. d.A hard distended belly (abdomen) and an inability to pass gas. 4. Please don?t expect to have a normal BM (bowel movement) for 2-3 days after your procedure. 5. If there are questions regarding the findings of your procedure, please contact your doctor 6. If you are unable to contact your doctor with a problem, contact the hospital at [phone]. 7. Continue all your regular medications unless directed otherwise. I understand the above instructions and have no questions. Signature of Patient or Adult Escort Name of Responsible Adult Escort Signature of Nurse Date/Time Activity:: see above Diet:: see above Discharge Orders Discharge Orders: Discharge Order (Routine); Ordered 11/30/23 Ordered By: Collette Ugarte DS: Diagnosis Discharge Diagnosis (1) Essential hypertension: Status: Acute (2) Left atrial dilation: Status: Acute (3) Mitral regurgitation: Status: Chronic (4) Coronary arteriosclerosis: Status: Acute (5) LBBB (left bundle branch block): Status: Acute (6) Paroxysmal atrial fibrillation: Status: Acute (7) Carotid stenosis, asymptomatic: Status: Acute (8) Hyperlipidemia: Status: Acute (9) 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 The patient has been able to pass gas.? They are not having abdominal pain.? They have been able to tolerate liquids and a snack.? They do not have any nausea or vomiting.? They are not having any chest pain or shortness of breath.??? They are not having any rectal bleeding. Their vital signs have been stable-see nursing notes. We discussed findings during their colonoscopy, and any biopsies that were done/polyps that were removed. The patient will be sent a letter with any biopsy results, and when to repeat the colonoscopy.-see discharge instructions. Patient was given explicit instructions to follow-up regarding colonoscopy-refer to discharge instructions.? We reviewed resumption of medications. Patient verbalized understanding and discharged in stable and satisfactory condition- See nursing notes. (18) Asthma: Status: Chronic (19) Emphysema lung: Status: Acute (20) History of cigarette smoking: Status: Acute (21) Aortic stenosis: (22) Myocardial infarct, old: (23) PTSD (post-traumatic stress disorder): (24) History of gastric cancer: Status: Acute (25) History of malignant neoplasm metastatic to liver: Status: Acute (26) Incomplete rectal prolapse: Status: Acute (27) Internal thrombosed hemorrhoids: Status: Acute (28) Internal and external hemorrhoids without complication: Status: Acute (29) Pancolonic diverticulosis: Status: Acute (30) Adenomatous colon polyp: Status: Acute
--- NOTE | 2023-11-30 09:57 | ANES.PREOP_ITS ---
General Info Date of Service Date Performed: 11/30/23 Height: 5 ft 9 in Weight: 90.718 kg Body Mass Index (BMI): 29.5 Surgical Procedure: Operation Date: 11/30/23 10:35 Proposed Procedure Side Surgeon laina Ugarte, DO Meds Allergies and Home Medications Allergies Allergy/AdvReac Type Severity Reaction Status Date / Time fenofibrate Allergy Unknown unknown Verified 11/30/23 10:18 Home Medication Medication Instructions Recorded melatonin 10 mg tablet 10 mg PO DAILY PRN 12/20/22 albuterol sulfate 90 mcg/actuation 2 puff inhalation Q6H PRN 12/27/22 aerosol inhaler (ProAir HFA) shortness of breath or wheezing #8.5 grams cyclobenzaprine 5 mg tablet 5 mg PO TID PRN back pain #14 tabs 02/06/23 hydrocortisone acetate 25 mg 25 mg NE BID PRN hemorrhoids #24 ea 02/06/23 rectal suppository (Anusol-HC) sucralfate 1 gram tablet (Carafate) 1 g PO QACHS #120 tabs 04/03/23 ferrous sulfate 325 mg (65 mg 325 mg PO DAILY #90 tabs 08/28/23 iron) tablet alfuzosin 10 mg tablet,extended 10 mg PO DAILY #90 tabs 11/13/23 release 24 hr amlodipine 10 mg tablet 10 mg PO DAILY #90 tabs 11/13/23 apixaban 5 mg tablet (Eliquis) 5 mg PO BID #180 tabs 11/13/23 bupropion HCl 150 mg tablet,12 hr 150 mg PO QAM #90 tabs 11/13/23 sustained-release famotidine 20 mg tablet 20 mg PO BID #180 tabs 11/13/23 furosemide 20 mg tablet 20 mg PO DAILY #90 tabs 11/13/23 lisinopril 20 mg tablet 20 mg PO DAILY #90 tabs 11/13/23 metoprolol succinate 50 mg 50 mg PO DAILY #90 tabs 11/13/23 tablet,extended release 24 hr pantoprazole 40 mg tablet,delayed 40 mg PO DAILY #90 tabs 11/13/23 release (Protonix) paroxetine HCl 20 mg tablet 20 mg PO DAILY #90 tabs 11/13/23 rosuvastatin 20 mg tablet 20 mg PO DAILY #90 tabs 11/13/23 Current Visit Medications: Current Medications Generic Name Dose Route Start Last Admin Trade Name Samq PRN Reason Stop Dose Admin Hyoscyamine Sulfate 0.125 mg 11/30/23 02:05 Hyoscyamine 0.125 Mg Sl/Oral/Chew SL 12/30/23 02:04 DIRECTED PRN Ringer's Solution 1,000 mls @ 80 mls/hr 11/30/23 06:00 IV 11/30/23 23:59 [facility]ION [facility] IV Miscellaneous Supplies 1 each 11/30/23 06:00 Iv Access IV 11/30/23 23:59 DIRECTED MANPREET Ondansetron HCl 4 mg 11/30/23 02:05 Ondansetron 4 Mg/2 Ml Vial IVP 12/30/23 02:04 Q4H PRN PRN Nausea / Vomiting Sodium Chloride 0 ml 11/30/23 06:00 Normal Saline Flush 10 Ml Syr IV 11/30/23 23:59 PRN PRN Sodium Chloride 0 ml 11/30/23 06:00 Normal Saline 10 Ml Vial IJ 11/30/23 23:59 DIRECTED PRN Sterile Water 0 ml 11/30/23 06:00 Water,Injection,Sterile 10 Ml Vial IJ 11/30/23 23:59 DIRECTED PRN PFSH Active Problems Active Problems: Problem Status Onset Code Prediabetes R73.03 Bleeding acute gastric ulcer K25.0 History of malignant neoplasm metastatic to liver Z85.89 History of gastric cancer Z85.028 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 K22.70 Internal hemorrhoids without complication K64.8 Carotid stenosis, asymptomatic I65.29 Mitral regurgitation I34.0 Left atrial dilation I51.7 Chronic constipation K59.09 External hemorrhoid K64.4 Emphysema lung J43.9 History of cigarette smoking Z87.891 Adenomatous polyps D36.9 Microcytic anemia D50.9 Gastric cardia ulcer K22.10 Hiatal hernia with GERD K21.9, K44.9 Hx of senior care use of blood 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.29 Diarrhea R19.7 Paroxysmal atrial fibrillation I48.0 LBBB (left bundle branch block) I44.7 GERD (gastroesophageal reflux disease) K21.9 Impotence of organic origin N52.9 Anemia D64.9 Heartburn R12 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 requests just tap his foot before waking him up, and call his name before doing anything Aortic stenosis w TAVR in [place] 05/31/22 [place] Myocardial infarct, old w stent placed in [place] 2001 History of gastrectomy Surgical History Surgical History History of esophagogastroduodenoscopy (EGD) (~04/2023) biopsies taken History of colonoscopy Hx of tonsillectomy History of appendectomy H/O left knee surgery History of Titi-en-Y gastric bypass H/O rotator cuff surgery (~01/19/09) Right Hx of heart artery stent x3 in [place] 2001 Tobacco Smoking/Tobacco Use Status: Former Tobacco Use Passive smoking exposure: Yes Second hand exposure: Yes Alcohol Alcohol Intake: former Substance Use Substance use type: former substance user Vital Signs and Lab Results Vital Signs Most Recent Vital Signs in EMR: Temp Pulse Resp BP Pulse Ox 36.9 C 96 H 20 130/98 H 99 11/30/23 10:06 11/30/23 10:06 11/30/23 10:06 11/30/23 10:06 11/30/23 10:06 Lab Results Blood Type / Crossmatch: No Data to Display Complete Blood Count: No Data to Display Complete Metabolic Panel: No Data to Display Liver Function Panel: No Data to Display Coagulation Panel: No Data to Display Cardiac Panel: No Data to Display Arterial Blood Gas: No Data to Display Venous Blood Gas: No Data to Display Pancreas Panel: No Data to Display Thyroid Panel: No Data to Display Infectious Disease: No Data to Display Blood Cultures: No Data to Display Toxicology Panel: No Data to Display Imaging and Studies Imaging and Studies Study information below may be from another EMR and interpreted by another pr nieves. Please see original notes in EMR for more complete details. EKG Summary: Conclusion Atrial fibrillation...? atrial activity Left bundle branch block...QRSd>120, broad/notched R Baseline wander in lead(s) V4 07/12/23 Conclusion Atrial fibrillation...V-rate 74- 85, irreg A-activity Left bundle branch block...QRSd>120, broad/notched R Baseline wander in lead(s) III 01/11/23 Echocardiogram Summary: Conclusion Normal left ventricular wall thickness and chamber size. Ejection fraction is 55%. Wall motion is normal Normal right ventricular size and systolic function Both atria are moderately dilated There is a bioprosthetic aortic valve. Mean gradient is 8 mmHg . there is mild aortic regurgitation which appears paravalvular Mitral annular calcification, moderate mitral regurgitation Estimated right ventricular systolic pressure is 24 mmHg 06/28/23 YISSEL 2021 Mild to moderate MR, normal function of prosthetic aortic valve Anesthesia Assessment and Plan Anesthesia History Personal History: No History of Anesthesia Complications Family History: No Family History of Anesthesia Complications Exercise Tolerance Exercise Tolerance: Metabolic Equivalents<4 Pertinent Negatives Pertinent Negatives: No Symptoms of GERD, No Major Cardiovascular Symptoms or Complaints and No Major Pulmonary Symptoms or Complaints Cardiac & Pulmonary Exam Cardiac Exam: Normal S1/S2 Heart Sounds Pulmonary Exam: Clear Bilateral Breath Sounds Implantable Cardiac Device Does patient have a Pacemaker or an ICD?: No Airway Exam Known Difficult Airway: No Mallampati Class: 2 Mouth Opening: Normal (> 3cm) Thyromental Distance: Greater than 3 cm Neck Range of Motion: Full ROM Neck Circumference: Normal Teeth Condition: Edentulous ASA Classification ASA Score: ASA 3 Emergency Case?: No NPO Status NPO Status: NPO Clears >2 hours, Solids >8 hours Anesthesia Plan Resuscitation Status: Full Code Anesthesia Technique: General Anesthesia Airway Planned: Natural Airway Monitors Used: Standard Monitors Preoperative Comments:: No medications x 3 days, HR 90-120's, AF
[2023-11-30 10:06] VITALS: BP 130/98; PULSE 96; RESP 20; TEMP 36.9; O2SAT 99
[2023-11-30 10:27] VITALS: BMI 29.5
[2023-11-30] MEDS: Lactated Ringers 1,000 ML 80 ML IV (10:45)
--- NOTE | 2023-11-30 11:07 | BOWEL_PTH ---
PATIENT: Agustin Bain LOC: [facility] U#:[id number] AGE/SX: 73/M ROOM: RE11/30/[address]: Collette Ugarte : 1950 BED: DIS: 11/30/2023 SPEC #: [id number] RECD: 11/30/23 18:39 STATUS: JULITO REQ #: [id number] YARELI: 11/30/23 11:[address]: Collette Ugarte DEPT: Surgical Specimen RECD BY: Nella Guevara ENTERED: 11/30/23 18:40 SP TYPE: Bowel OTHR DR: Drea Martines, [employer]RARY ASSISTANT Tissues: 1 - BIOPSY BOWEL 2 - BIOPSY BOWEL 3 - BIOPSY BOWEL Procedures: GROSS AND MICRO LEVEL 4 Comments: [id number]
[2023-11-30 11:30] VITALS: BP 107/81; PULSE 75; RESP 20; TEMP 36.4; O2SAT 96
[2023-11-30 12:05] VITALS: BP 130/105; PULSE 73; RESP 20; TEMP 36.3; O2SAT 100
--- NOTE | 2023-11-30 12:36 | W.ANESPOSTOP ---
Postoperative Evaluation Date, Time and Location Date Performed: 11/30/23 Time Performed: 12:11 Patient Location: Day Surgery Unit Vital Signs Most Recent Imported Vital Signs: Most Recent Vital Signs Temp Pulse Resp BP Pulse Ox 36.3 C L 73 20 130/105 H 100 11/30/23 12:05 11/30/23 12:05 11/30/23 12:05 11/30/23 12:05 11/30/23 12:05 Pain Score Most Recent Pain Score: Most Recent Pain Score Pain Level 0 11/30/23 12:05 Assessment Mental Status: Awake (Alert & Oriented to Patient Baseline) Airway and Respiratory Function: Patent airway with normal (patient baseline) respiratory exam Cardiovascular Function: Hemodynamically Stable Hydration Status: Adequately Hydrated Nausea & Vomiting: No Nausea or Vomiting Pain: Pt. Denies Any Pain Peripheral Nerve Block: Patient did not receive a nerve block
== END 2023-11-30 12:50 | disposition home or self-care (01) ==
LOC: SUR 09:46
PROVIDERS: PCP Nurse Practitioner Family; Visit Provider Surgery
PROC: 0DJD8ZZ Inspection of Lower Intestinal Tract, Via Natural or Artificial Opening Endoscopic (ICD-10-PCS; CPT 45378; principal; 2023-11-30 10:30)
DX: Z12.11 Encounter for screening for malignant neoplasm of colon (principal); D12.4 Benign neoplasm of descending colon; K64.5 Perianal venous thrombosis; K64.2 Third degree hemorrhoids; K25.0 Acute gastric ulcer with hemorrhage; K57.30 Diverticulosis of large intestine without perforation or abscess without bleeding; K62.3 Rectal prolapse; K21.9 Gastro-esophageal reflux disease without esophagitis; Z86.010 Personal history of colon polyps; I10 Essential (primary) hypertension; K64.4 Residual hemorrhoidal skin tags; K64.8 Other hemorrhoids; F43.10 Post-traumatic stress disorder, unspecified; Z87.891 Personal history of nicotine dependence; Z85.028 Personal history of other malignant neoplasm of stomach
CPT/HCPCS: 45380; 45385; 88305; J2001; J2704

== ENCOUNTER 2024-01-01 16:33 | Inpatient (IN) | payer OTHER, SELFPAY ==
[2024-01-01] VITALS (52 sets, daily range): BP systolic 106–233; BP diastolic 65–204; PULSE 84–140; RESP 16–43; TEMP 31–39.6; O2SAT 87–99
--- NOTE | 2024-01-01 16:15 | RT.EKG_ITS ---
APPROVED REPORT Exam: Resting ECG Reason for Exam: SOB Patient Location: E HR:135 bpm ECG Measurements Heart Rate 135 AXIS GA 107 P 55 QRSd 137 QRS -37 QT 356 T 126 QTc 530 Conclusion a fib RVR LBBB
--- NOTE | 2024-01-01 16:40 | DI.CT_ITS ---
Exam(s) CT CHEST PE CTA EXAM: CT CHEST PE CTA CLINICAL HISTORY: shortness of breath. TECHNIQUE: Imaging Protocol: Axial CT angiography was performed with multi-slice acquisition and mu lti-planar reconstructions as well as axial, coronal and sagittal MIP reconstructions. CONTRAST MATERIAL: Intravenous: Omnipaque 350 Contrast volume:100 ml COMPARISON: No exams were available for comparison FINDINGS: Pulmonary Arteries: No evidence of filling defect to suggest pulmonary emboli. Tracheobronchial tree: No mucous plugging. Mediastinum and Jessica: No dominant adenopathy or fluid collection. Pulmonary parenchyma: Dense alveolar infiltrate in the left upper as well as left lower lobes. Atele ctasis at the right lower lobe. Pleura: Small bilateral pleural effusions, left greater than right. Heart: The heart is mildly dilated. Moderate coronary artery calcifications are seen. Aorta: Thoracic aorta non-dilated. No dissection. Aortic valve prosthesis. Upper abdomen: No acute findings. Bones: Unremarkable for age. Tubes, Catheters, and Lines: None Soft tissues: Unremarkable. IMPRESSION: No evidence of pulmonary embolism. Dense infiltrates in the left upper and lower lobes. Small bilateral pleural effusions. RADIATION DOSE DELIVERED: Total DLP DATA REPOSITORY: All CT scans at this facility are submitted to the National Radiology Data Registry (NRDR) Dose Index Registry (DIR) with the [employer] ([employer]). RADIATION OPTIMIZATION: All CT scans at this facility use at least one of these dose optimization te chniques: automated exposure control; mA and/or kV adjustment per patient size (includes targeted exa ms where dose is matched to clinical indication); or iterative reconstruction.
[2024-01-01] MEDS: Albuterol/Ipratropium 3 ML UPD VIAL UPD (16:50)
[2024-01-01] MEDS: MAGNESIUM SULFATE 1 GM/100 ML BAG IVINF (16:50)
--- NOTE | 2024-01-01 16:50 | W.ED.GENAD ---
Discharge Plan Disposition Patient Disposition: Admit to [facility] Condition: Fair Discharge Details Chief Complaint: SOB Clinical Impression: Acute hypoxemic respiratory failure, Sepsis, Pneumonia Admit Date/Time: 01/01/24 19:49 Admit Provider: Mehran Rosen Attending Provider: Mehran Rosen Primary Care Provider: Drea Martines ED Provider: Malachi Martin HPI General Date/Time Provider Initiated Documentation: 01/01/24 16:39. HPI Narrative: 73 year-old male presents to ED today by EMS with a chief complaint of cough, shortness of breath, fever with onset over the past 3 days, noted to be hypoxic on RA in mid-80s by EMS, they provided a duoneb and solumedrol. Quality described as generalized malaise, cough, shortness of breath, denies decreased appetite, nausea/vomiting, black/bloody stools, chest pain, confusion, no radiation to hemoptysis, palpitations, numbness/tingling. Severity is described as moderate. Palliating factors include nothing specific attempted. Provoking factors include history of COPD, denies at-home O2 use, sometimes uses PRN at night. Patient is anticoagulated on Eliquis, but states he hasn't been taking his medications the past few days due to illness. Related Data Home Medications Medication Instructions Recorded Confirmed melatonin 10 mg tablet 10 mg PO DAILY PRN 12/20/22 01/01/24 albuterol sulfate 90 mcg/actuation 2 puff inhalation Q6H PRN 12/27/22 01/01/24 aerosol inhaler (ProAir HFA) shortness of breath or wheezing #8.5 grams cyclobenzaprine 5 mg tablet 5 mg PO TID PRN back pain #14 tabs 02/06/23 01/01/24 hydrocortisone acetate 25 mg 25 mg GA BID PRN hemorrhoids #24 ea 02/06/23 01/01/24 rectal suppository (Anusol-HC) sucralfate 1 gram tablet (Carafate) 1 g PO QACHS #120 tabs 04/03/23 01/01/24 ferrous sulfate 325 mg (65 mg 325 mg PO DAILY #90 tabs 08/28/23 01/01/24 iron) tablet alfuzosin 10 mg tablet,extended 10 mg PO DAILY #90 tabs 11/13/23 01/01/24 release 24 hr amlodipine 10 mg tablet 10 mg PO DAILY #90 tabs 11/13/23 01/01/24 apixaban 5 mg tablet (Eliquis) 5 mg PO BID #180 tabs 11/13/23 01/01/24 bupropion HCl 150 mg tablet,12 hr 150 mg PO QAM #90 tabs 11/13/23 01/01/24 sustained-release famotidine 20 mg tablet 20 mg PO BID #180 tabs 11/13/23 01/01/24 furosemide 20 mg tablet 20 mg PO DAILY #90 tabs 11/13/23 01/01/24 lisinopril 20 mg tablet 20 mg PO DAILY #90 tabs 11/13/23 01/01/24 metoprolol succinate 50 mg 50 mg PO DAILY #90 tabs 11/13/23 01/01/24 tablet,extended release 24 hr pantoprazole 40 mg tablet,delayed 40 mg PO DAILY #90 tabs 11/13/23 01/01/24 release (Protonix) paroxetine HCl 20 mg tablet 20 mg PO DAILY #90 tabs 11/13/23 01/01/24 rosuvastatin 20 mg tablet 20 mg PO DAILY #90 tabs 11/13/23 01/01/24 Previous Rx's Medication Instructions Recorded albuterol sulfate 90 mcg/actuation 2 puff inhalation Q6H PRN 12/27/22 aerosol inhaler (ProAir HFA) shortness of breath or wheezing #8.5 grams cyclobenzaprine 5 mg tablet 5 mg PO TID PRN back pain #14 tabs 02/06/23 hydrocortisone acetate 25 mg 25 mg GA BID PRN hemorrhoids #24 ea 02/06/23 rectal suppository (Anusol-HC) sucralfate 1 gram tablet (Carafate) 1 g PO QACHS #120 tabs 04/03/23 ferrous sulfate 325 mg (65 mg 325 mg PO DAILY #90 tabs 08/28/23 iron) tablet alfuzosin 10 mg tablet,extended 10 mg PO DAILY #90 tabs 11/13/23 release 24 hr amlodipine 10 mg tablet 10 mg PO DAILY #90 tabs 11/13/23 apixaban 5 mg tablet (Eliquis) 5 mg PO BID #180 tabs 11/13/23 bupropion HCl 150 mg tablet,12 hr 150 mg PO QAM #90 tabs 11/13/23 sustained-release famotidine 20 mg tablet 20 mg PO BID #180 tabs 11/13/23 furosemide 20 mg tablet 20 mg PO DAILY #90 tabs 11/13/23 lisinopril 20 mg tablet 20 mg PO DAILY #90 tabs 11/13/23 metoprolol succinate 50 mg 50 mg PO DAILY #90 tabs 11/13/23 tablet,extended release 24 hr pantoprazole 40 mg tablet,delayed 40 mg PO DAILY #90 tabs 11/13/23 release (Protonix) paroxetine HCl 20 mg tablet 20 mg PO DAILY #90 tabs 11/13/23 rosuvastatin 20 mg tablet 20 mg PO DAILY #90 tabs 11/13/23 Allergies Allergy/AdvReac Type Severity Reaction Status Date / Time fenofibrate Allergy Unknown unknown Verified 01/01/24 17:15 General Stated Complaint: SOB ERENDIRA: 3 Review of Systems All systems reviewed & are unremarkable except as noted in HPI and below Exam Narrative Exam Narrative: GENERAL APPEARANCE: Well-nourished, toxic, awake and alert, atraumatic, moderate acute distress. SKIN: Warm, pink, dry, intact, without rashes/lesions/ulcerations. HEAD: Normocephalic, atraumatic, normal hair distribution for gender/age. EYES: Pupils PERRLA, EOMs intact without nystagmus, normal conjunctiva, no exudates on lids/lashes. ENT: Nares patent, no circumoral cyanosis, no facial swelling NECK: Supple, trachea midline, painless cervical ROM. LUNGS/CHEST: Lungs- rhonchorous throughout, fine rales at bases, L lung diminished but not absent all beatty, labored respirations, increased A/P diameter, symmetrical expansion, no chest wall deformity HEART (CV/PV): Irregular rate and rhythm without murmur, tachycardic, no peripheral edema, no JVD. ABDOMEN: Soft, non-distended, no guarding, no tenderness. MSK: Normal ROM, no swelling/deformity to bilateral UEs or LEs, moving all extremities without weakness, no cyanosis, spine midline without tenderness, normal curvature. NEURO: Mental Status AAOx4 - alert to person, place, time, events No facial droop, no forehead involvement. Motor: No focal weakness - strength 5/5 in bilateral UEs and LEs, proximal and distal, symmetric. Sensory: sensation intact to light touch globally. Gait NT PSYCH: euthymic, cooperative, pleasant, appropriate speech Course Vital Signs Vital signs: Vital Signs Temperature 39.6 C H 01/01/24 16:33 Pulse 128 H 01/01/24 16:33 Respiratory Rate 22 01/01/24 16:33 Blood Pressure 158/99 H 01/01/24 16:33 Pulse Oximetry 93 01/01/24 16:33 Temperature 39.6 C H 01/01/24 16:39 Temperature Source Oral 01/01/24 16:39 Pulse 128 H 01/01/24 16:39 Respiratory Rate 30 H 01/01/24 16:39 Respiratory Effort Short of Breath, Incrsd Work of Breathing 01/01/24 16:39 Blood Pressure 158/99 H 01/01/24 16:39 Blood Pressure Position Sitting 01/01/24 16:39 Pulse Oximetry 93 01/01/24 16:39 Oxygen Delivery Method Nasal Cannula 01/01/24 16:39 Oxygen Flow Rate 4 01/01/24 16:39 Lab/Test Results Lab/Test Results: 01/01/24 16:40 Blood Blood Culture - Pending 01/01/24 16:40 Blood Blood Culture - Pending Medical Decision Making This dictation utilizes [id number] dictation software and may contain unedited grammatical errors. 73 y/o M presents to ED today with a chief complaint of cough, fever, shortness of breath, onset over the past 3 days. Patient has history of COPD, endorses CHF, liver CA, aortic stenosis. Given 125mg solu-medrol and 1 DuoNeb by EMS en route, sats were 88% at home. Placed on 4L by [place], does not use at-home oxygen, PRN sometimes at night. Patient states he has not taken his home medications since Sunday. Patient does live independently at home, lives with a female housemate. Patients' medical history: Liver cancer, aortic stenosis, ID, history of appendectomy, history of Titi-en-Y gastric bypass, history of CAD with stenting, history of gastric cancer states he is tolerating p.o. intake, Queen's esophagus, carotid stenosis bilaterally, mitral regurgitation, emphysema, atrial fibrillation on anticoagulation, asthma, COPD, hypertension. Family and social history: Lives at home with female housemate, no exercise, no recent travel. Pertinent exam findings / vital signs include rhonchorous rhonchorous throughout, left lung diminished, fine rales at bases, febrile, tachycardic with A-fib, benign abdomen, neuro intact. Differential / pathologies of concern include respiratory failure, sepsis, pneumonia, PE, ACS, CHF. Diagnostic studies of: -CBC, CMP, CRP/ESR, magnesium, urinalysis, COVID/flu/RSV PCR, lactate, lipase, procalcitonin, troponin I, BNP, EKG, CTA chest PE study, Blood Cultures. -no leukocytosis, mild anemia- baseline -CMP shows mild hypokalemia, repleting PO - low magnesium, given 1g IV -BNP elevated to 6700 -CRP elevated to 8, ESR elevated -Trop negative -UA benign -Covid/Flu/RSV negative -Lactate 1.8, procalcitonin 0.3- likely bacterial infection -CTA shows no PE, shows significant L sided pneumonia, bilat small pleural effusions -EKG shows atrial fibrillation, not signs of ischemia, normal QT/QTc Interventions of: -Remaining hypoxic after 4L by [place], IV Lasix did not improve, do not suspect CHF playing a significant role in this respiratory failure - starting BiPAP. Given IV Tylenol, Given 1g ceftriaxone, 500mg IV azithro for CAP coverage. -Given his home dose of 50mg metoprolol PO here. -IV 1g Magnesium -40mEq potassium ED Course/Assessment/Plan: 73-year-old male presents to the ED by EMS for 3-day onset of progressing respiratory illness. He has not been having a productive cough he has significant comorbidities of CHF and COPD, he was noted to be hypoxic on room air was placed on nasal cannula which she uses sometimes at night at home. He has not taken his medicines including Lasix or metoprolol in the past few days, he was noted to be 140 bpm tachycardic in A-fib on arrival likely secondary to his infection. He does have a significantly elevated BNP but no overt pulmonary edema on CTA of his chest, he does have a significant left lung pneumonia on imaging as well as elevated lactate and procalcitonin and CRP. He has low O2 on ABG and was started on high flow oxygen where he improved to 97% as he had been hovering around 90% on 4 L nasal cannula after 2 DuoNebs. I consulted with Dr. Rosen who accepts for admission. Disposition of Sepsis, Pneumonia, Acute Hypoxemic Respiratory Failure. Patient verbalized understanding of the plan and return to ED criteria and engaged in shared decision making. Medical Records Medical records reviewed: Yes I reviewed the patient's medical records. Imaging Data Radiologic Study: Attestation: I personally reviewed and interpreted this imaging study as follows: Imaging: CT Scan Radiologist's impression: EXAM: CT CHEST PE CTA CLINICAL HISTORY: shortness of breath. TECHNIQUE: Imaging Protocol: Axial CT angiography was performed with multi-slice acquisition and multi-planar reconstructions as well as axial, coronal and sagittal MIP reconstructions. CONTRAST MATERIAL: Intravenous: Omnipaque 350 Contrast volume:100 ml COMPARISON: No exams were available for comparison FINDINGS: Pulmonary Arteries: No evidence of filling defect to suggest pulmonary emboli. Tracheobronchial tree: No mucous plugging. Mediastinum and Jessica: No dominant adenopathy or fluid collection. Pulmonary parenchyma: Dense alveolar infiltrate in the left upper as well as left lower lobes. Atelectasis at the right lower lobe. Pleura: Small bilateral pleural effusions, left greater than right. Heart: The heart is mildly dilated. Moderate coronary artery calcifications are seen. Aorta: Thoracic aorta non-dilated. No dissection. Aortic valve prosthesis. Upper abdomen: No acute findings. Bones: Unremarkable for age. Tubes, Catheters, and Lines: None Soft tissues: Unremarkable. IMPRESSION: No evidence of pulmonary embolism. Dense infiltrates in the left upper and lower lobes. Small bilateral pleural effusions. Lab Data Lab results reviewed: Yes I reviewed the patient's lab results. Labs: 01/01/24 17:30 Blood Blood Culture - Pending 01/01/24 16:40 Blood Blood Culture - Pending Laboratory Tests Range/Units 01/01/24 01/01/24 01/01/24 15:30 16:40 17:00 WBC Cancelled 5.14 RBC Cancelled 4.21 L Hgb Cancelled 12.1 L Hct Cancelled 37.3 L MCV Cancelled 89 MCH Cancelled 28.7 MCHC Cancelled 32.4 RDW Cancelled 13.2 Plt Count Cancelled 115 L MPV Cancelled 10.9 Immature Gran % Cancelled 0.6 Neutrophils % Cancelled 81.1 Band Neutrophils % Cancelled Lymphocytes % Cancelled 11.5 Atypical Lymphs % Cancelled Monocytes % Cancelled 6.4 Eosinophils % Cancelled 0.2 Basophils % Cancelled 0.2 Metamyelocytes % Cancelled Myelocytes % Cancelled Promyelocytes % Cancelled Other Cells % Cancelled Nucleated RBC % Cancelled 0.0 Absolute Neutrophils Cancelled 4.17 Absolute Lymphocytes Cancelled 0.59 L Absolute Monocytes Cancelled 0.33 Absolute Eosinophils Cancelled 0.01 Absolute Basophils Cancelled 0.01 RBC Morphology Cancelled Polychromasia Cancelled Hypochromasia Cancelled Poikilocytosis Cancelled Basophilic Stippling Cancelled Anisocytosis Cancelled Microcytosis Cancelled Macrocytosis Cancelled Spherocytes Cancelled Tear Drop Cells Cancelled Ovalocytes Cancelled Stomatocytes Cancelled [place] Bodies Cancelled [place] Cells/Echinocytes Cancelled Acanthocytes (Spur) Cancelled Schistocytes Cancelled ESR Cancelled 21 H VBG Lactate (0.6-1.4) mmol/L 1.8 H Sodium (136-145) mmol/L 141 Potassium (3.5-5.1) mmol/L 3.2 L Chloride (98-107) mmol/L 105 Carbon Dioxide (21.0-32.0) mmol/L 25.7 Anion Gap (3-11) mmol/L 10.3 BUN (7-18) mg/dL 12 Creatinine (0.70-1.30) mg/dL 0.9 Est GFR (CKD-EPI 2020) (mL/min/1.73m2) 90.74 Glucose (74-106) mg/dL 118 H Calcium (8.5-10.1) mg/dL 8.1 L Magnesium (1.8-2.4) mg/dL 1.5 L Total Bilirubin (0.2-1.0) mg/dL 1.4 H AST (15-37) U/L 22 ALT (16-63) U/L 21 Alkaline Phosphatase (46-116) U/L 97 Troponin I (< or =60) ng/L < 50 C-Reactive Protein (<or=0.5) mg/dL 8.78 H NT-Pro-B Natriuret Pep (<300) pg/mL 6776 H Total Protein (6.4-8.2) g/dL 6.7 Albumin (3.4-5.0) g/dL 3.1 L Lipase (16-77) U/L 15 L Procalcitonin ng/mL 0.3 Urine Color (Yellow) Yellow Urine Clarity (Clear) Clear Urine pH (5-8) 6.0 Ur Specific [place] (1.005-1.025) 1.015 Urine Protein (Neg-Trace) mg/dL Negative Urine Ketones (Negative) mg/dL Negative Urine Blood (Negative) Negative Urine Nitrite (Negative) Negative Urine Bilirubin (Negative) Negative Urine Urobilinogen (Up to 0.2) mg/dL 2.0 H Ur Leukocyte Esterase (Negative) Negative Urine Glucose (Negative) mg/dL Negative COVID-19 Source SARS-CoV-2 (PCR) (Negative) Influenza Type A (PCR) (Negative) Influenza Type B (PCR) (Negative) RSV (PCR) (Negative) Range/Units 01/01/24 17:02 WBC RBC Hgb Hct MCV MCH MCHC RDW Plt Count MPV Immature Gran % Neutrophils % Band Neutrophils % Lymphocytes % Atypical Lymphs % Monocytes % Eosinophils % Basophils % Metamyelocytes % Myelocytes % Promyelocytes % Other Cells % Nucleated RBC % Absolute Neutrophils Absolute Lymphocytes Absolute Monocytes Absolute Eosinophils Absolute Basophils RBC Morphology Polychromasia Hypochromasia Poikilocytosis Basophilic Stippling Anisocytosis Microcytosis Macrocytosis Spherocytes Tear Drop Cells Ovalocytes Stomatocytes [place] Bodies [place] Cells/Echinocytes Acanthocytes (Spur) Schistocytes ESR VBG Lactate (0.6-1.4) mmol/L Sodium (136-145) mmol/L Potassium (3.5-5.1) mmol/L Chloride (98-107) mmol/L Carbon Dioxide (21.0-32.0) mmol/L Anion Gap (3-11) mmol/L BUN (7-18) mg/dL Creatinine (0.70-1.30) mg/dL Est GFR (CKD-EPI 2020) (mL/min/1.73m2) Glucose (74-106) mg/dL Calcium (8.5-10.1) mg/dL Magnesium (1.8-2.4) mg/dL Total Bilirubin (0.2-1.0) mg/dL AST (15-37) U/L ALT (16-63) U/L Alkaline Phosphatase (46-116) U/L Troponin I (< or =60) ng/L C-Reactive Protein (<or=0.5) mg/dL NT-Pro-B Natriuret Pep (<300) pg/mL Total Protein (6.4-8.2) g/dL Albumin (3.4-5.0) g/dL Lipase (16-77) U/L Procalcitonin ng/mL Urine Color (Yellow) Urine Clarity (Clear) Urine pH (5-8) Ur Specific [place] (1.005-1.025) Urine Protein (Neg-Trace) mg/dL Urine Ketones (Negative) mg/dL Urine Blood (Negative) Urine Nitrite (Negative) Urine Bilirubin (Negative) Urine Urobilinogen (Up to 0.2) mg/dL Ur Leukocyte Esterase (Negative) Urine Glucose (Negative) mg/dL COVID-19 Source Nasopharynx SARS-CoV-2 (PCR) (Negative) Negative Influenza Type A (PCR) (Negative) Negative Influenza Type B (PCR) (Negative) Negative RSV (PCR) (Negative) Negative Quality:SDOH Health Related Social Needs: No Data to Display PFSH All Active Problems (Updated 01/01/24 @ 21:45 by ELIZABETH Martinez) Pneumonia (Acute) Sepsis (Acute) Acute hypoxemic respiratory failure (Acute) Pneumonia (Acute) Adenomatous colon polyp (Acute) Pancolonic diverticulosis (Acute) Internal and external hemorrhoids without complication (Acute) Internal thrombosed hemorrhoids (Acute) Incomplete rectal prolapse (Acute) Prediabetes (Acute) Bleeding acute gastric ulcer (Acute) History of malignant neoplasm metastatic to liver (Acute) History of gastric cancer (Acute) 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 requests just tap his foot before waking him up, and call his name before doing anything Aortic stenosis w TAVR in [place] 05/31/22 RH Myocardial infarct, old w stent placed in [place] 2001 History of gastrectomy Surgical History History of esophagogastroduodenoscopy (EGD) (~04/2023) biopsies taken History of colonoscopy (~11/2023) Hx of tonsillectomy History of appendectomy H/O left knee surgery History of Titi-en-Y gastric bypass H/O rotator cuff surgery (~01/19/09) Right Hx of heart artery stent x3 in [place] 2001 Family History Mother , 65 Cancer Heart disease of ID Hypertension Father , 43 Heart disease ID at age 43 Diabetes Hypertension Son , 5 Months Cancer SIDS Maternal Grandfather Heart disease Hyperlipidemia Maternal Grandmother Heart disease Hyperlipidemia Paternal Grandmother No problems noted. Social History Smoking/Tobacco Use Status: Former Tobacco Use tobacco type: cigarettes Quit Date: 08/27/74 Tobacco: How many years used: 10 Second Hand Exposure: Yes Smoking risk assessment performed?: Yes Alcohol Intake: former Substance use type: former substance user Household members: significant other Housing: other Communication Needs: None Do you need help understanding health information?: Often Pets and animals: Yes Pets and animals: dog(s) Sexually active: No Do you think of yourself as: straight/heterosexual Current gender identity: male What is your relationship status?: How often do you talk on the phone with friends or family?: once per week How often do you get together with friends or relatives?: never How often do you attend bahai or episcopalian services?: decline to answer Do you belong to any clubs or organized social groups?: no Panel score (0-1 are the most socially isolated patients): 0 What type of physical activity do you participate in: none Frequency: does not exercise Olive/Muslim: None Special olive needs: No Seatbelt use: sometimes Helmet use: Yes Helmet use: sometimes Drive intox or ride w/intox 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
[2024-01-01] MEDS: ACETAMINOPHEN 1,000 MG/100 ML BTL 400 MG IVPB (16:51)
[2024-01-01 16:53] LABS: Lactate 1.8 mmol/L (0.6-1.4)
[2024-01-01] MEDS: Normal Saline 1,000 ML 150 ML IV (16:56)
[2024-01-01 17:13] LABS: Abs Immature Grans 0.03 10^3/uL (0.0-0.06); Absolute Basophil Count 0.01 10^3/uL (0.0-0.2); Absolute Eosinophil Count 0.01 10^3/uL (0.0-0.7); Absolute Lymphocyte Count 0.59 10^3/uL (1.2-3.4); Absolute Monocyte Count 0.33 10^3/uL (0.1-0.8); Absolute Neutrophil Count 4.17 10^3/uL (1.2-6.7); Basophils % 0.2 %; Eosinophils % 0.2 %; HCT 37.3 % (40.0-50.0); HGB 12.1 g/dL (13.5-17.5); Immature Grans % 0.6 %; Lymphocytes % 11.5 %; MCH 28.7 pg (27.0-33.0); MCHC 32.4 % (32.0-36.0); MCV 89 fL (80-95); MPV 10.9 fL (8.0-11.0); Monocytes % 6.4 %; Neutrophils % 81.1 %; Platelet Count 115 10^3/uL (130-400); RBC 4.21 10^6/uL (4.36-5.78); RDW 13.2 % (11.8-14.1); RDW-SD 43.4 fL; WBC 5.14 10^3/uL (4.4-10.8)
[2024-01-01 17:15] LABS: ESR 21 mm/hr (0-20)
[2024-01-01 17:20] LABS: ALT 21 U/L (16-63); AST 22 U/L (15-37); Albumin 3.1 g/dL (3.4-5.0); Alkaline Phosphatase 97 U/L (46-116); Anion Gap 10.3 mmol/L (3-11); BUN 12 mg/dL (7-18); Bilirubin, Total 1.4 mg/dL (0.2-1.0); C-Reactive Protein 8.78 mg/dL (<or=0.5); CO2 25.7 mmol/L (21.0-32.0); CREATININE 0.9 mg/dL (0.70-1.30); Calcium 8.1 mg/dL (8.5-10.1); Chloride 105 mmol/L (98-107); Estimated GFR 90.74 (mL/min/1.73m2); Glucose 118 mg/dL (74-106); Lipase 15 U/L (16-77); Magnesium 1.5 mg/dL (1.8-2.4); NT-proBNP 6776 pg/mL (<300); Potassium 3.2 mmol/L (3.5-5.1); Sodium 141 mmol/L (136-145); Total Protein 6.7 g/dL (6.4-8.2); Troponin I < 50 ng/L (< or =60)
[2024-01-01 17:30] LABS: Procalcitonin 0.3 ng/mL
[2024-01-01] MEDS: Omnipaque 350 MG/ML 100 ML BTL IJ (17:32)
[2024-01-01] MEDS: Potassium Chloride 20 MEQ TABCR 40 MEQ PO (17:32)
[2024-01-01] MEDS: Furosemide 40 MG/4 ML VIAL IVP (17:32)
[2024-01-01] MEDS: Normal Saline - Diluent 50 ML VIAL IJ (17:33)
[2024-01-01] MEDS: Metoprolol CR 50 MG TABCR PO (17:37)
[2024-01-01] MEDS: cefTRIAXone 1 GM/50 ML BAG IVPB (17:51)
[2024-01-01 17:55] LABS: Bilirubin Negative (Negative); Blood Negative (Negative); Clarity Clear (Clear); Glucose Negative (Negative); Ketones Negative (Negative); Leukocyte Esterase Negative (Negative); Nitrite Negative (Negative); Specific Gravity 1.015 (1.005-1.025)
[2024-01-01 18:01] LABS: COVID-19 PCR Negative (Negative); Influenza A PCR Negative (Negative); Influenza B PCR Negative (Negative); RSV PCR Negative (Negative)
[2024-01-01 18:02] LABS: Source Nasopharynx
[2024-01-01] MEDS: AZITHROMYCIN 500 MG in Normal Saline 250 ML 250 MG IVPB (18:39)
[2024-01-01] MEDS: Water,Injection,Sterile 10 ML VIAL (18:41)
[2024-01-01 18:58] LABS: BE 0 mmol/L (-2-3); HCO3 23 mmol/L (22-26); pCO2 30 mmHg (35-45); pH 7.49 (7.35-7.45); pO2 56 mmHg (80-105); sO2 92 % (95-98); tCO2 20 mmol/L (23-27)
[2024-01-01 19:02] LABS: Site Right Radial
--- NOTE | 2024-01-01 19:36 | W.PM.HP.N ---
Date of service: 01/01/24 Time of Service: 19:37 Assessment and Plan Assessment and plan (1) Pneumonia: Status: Acute Assessment and plan: 1. Community acquired pneumonia. Hemodynamics satisfactory and oxygenating adequately (with supplemental O2), without signs of ventilatory impairment. Will continue Zithro/Rocephin, and obtain blood cxx and Legionella Ag. 2. Mg/K: replace 3. AF: continue rate control with beta jamir, and DOAC ADs: request DNR status. History of Present Illness History of Present Illness Chief Complaint: cough, SOB Narrative: 73 male with h/o prior pneumonia, here with 2 days of cough productive of brown sputum, SOB and feeling feverish; no chills, no CP. Here in ER findings of note for temp to 39.6, oxygen requirement of 4L for sats to low-mid 90s and CT showing dens bilobar infiltrates on left.Other findigs include Mg 1.5, K 3.2 and ABG showing 7.49, pCO2 30, pO2 56 . Patient given Roicephin and Zithro, along with MgSO4. I was asked to evaluate for admission. Patient states he does not feel SOB at this point with O2 on. 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 repeat in 2025 Microcytic anemia (Acute) Gastric cardia ulcer (Acute) Hiatal hernia with GERD (Acute) Hx of half-way use of blood thinners (Acute) Diarrhea (Acute) Paroxysmal atrial fibrillation (Acute) new onset 10/22 w TAVR [facility] LBBB (left bundle branch block) (Acute) new 10/22 w TAVR RH GERD (gastroesophageal reflux disease) (Chronic) Impotence of organic origin (Acute) Anemia (Chronic) Heartburn (Acute) Disorder of skull (Acute) Anxiety (Chronic) Asthma (Chronic) Hyperlipidemia (Acute) Coronary arteriosclerosis (Acute) Essential hypertension (Acute) Medical History Esophageal candidiasis Liver cancer Stomach cancer PTSD (post-traumatic stress disorder) Pt. requests just tap his foot before waking him up, and call his name before doing anything Aortic stenosis w TAVR in [place] 05/31/22 RH Myocardial infarct, old w stent placed in [place] 2001 History of gastrectomy Surgical History History of esophagogastroduodenoscopy (EGD) (~04/2023) biopsies taken History of colonoscopy (~11/2023) Hx of tonsillectomy History of appendectomy H/O left knee surgery History of Titi-en-Y gastric bypass H/O rotator cuff surgery (~01/19/09) Right Hx of heart artery stent x3 in [place] 2001 Family History Mother , 65 Cancer Heart disease of [place] Hypertension Father , 43 Heart disease [place] at age 43 Diabetes Hypertension Son , 5 Months Cancer SIDS Maternal Grandfather Heart disease Hyperlipidemia Maternal Grandmother Heart disease Hyperlipidemia Paternal Grandmother No problems noted. Social History Smoking/Tobacco Use Status: Former Tobacco Use tobacco type: cigarettes Quit Date: 08/27/74 Tobacco: How many years used: 10 Second Hand Exposure: Yes Smoking risk assessment performed?: Yes Alcohol Intake: former Substance use type: former substance user Household members: significant other Housing: other Communication Needs: None Do you need help understanding health information?: Often Pets and animals: Yes Pets and animals: dog(s) Sexually active: No Do you think of yourself as: straight/heterosexual Current gender identity: male What is your relationship status?: How often do you talk on the phone with friends or family?: once per week How often do you get together with friends or relatives?: never How often do you attend gnosticist or baptist services?: decline to answer Do you belong to any clubs or organized social groups?: no Panel score (0-1 are the most socially isolated patients): 0 What type of physical activity do you participate in: none Frequency: does not exercise Olive/Cheondoism: None Special olive needs: No Seatbelt use: sometimes Helmet use: Yes Helmet use: sometimes Drive intox or ride w/intox putaway 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 Meds Allergies and Home Medications Allergies Allergy/AdvReac Type Severity Reaction Status Date / Time fenofibrate Allergy Unknown unknown Verified 01/01/24 17:15 Home Medications Medication Instructions Recorded Confirmed Type melatonin 10 mg tablet 10 mg PO DAILY PRN 12/20/22 01/01/24 History albuterol sulfate 90 mcg/actuation 2 puff inhalation Q6H PRN 12/27/22 01/01/24 Rx aerosol inhaler (ProAir HFA) shortness of breath or wheezing #8.5 grams cyclobenzaprine 5 mg tablet 5 mg PO TID PRN back pain #14 tabs 02/06/23 01/01/24 Rx hydrocortisone acetate 25 mg 25 mg SD BID PRN hemorrhoids #24 ea 02/06/23 01/01/24 Rx rectal suppository (Anusol-HC) sucralfate 1 gram tablet (Carafate) 1 g PO QACHS #120 tabs 04/03/23 01/01/24 Rx ferrous sulfate 325 mg (65 mg 325 mg PO DAILY #90 tabs 08/28/23 01/01/24 Rx iron) tablet alfuzosin 10 mg tablet,extended 10 mg PO DAILY #90 tabs 11/13/23 01/01/24 Rx release 24 hr amlodipine 10 mg tablet 10 mg PO DAILY #90 tabs 11/13/23 01/01/24 Rx apixaban 5 mg tablet (Eliquis) 5 mg PO BID #180 tabs 11/13/23 01/01/24 Rx bupropion HCl 150 mg tablet,12 hr 150 mg PO QAM #90 tabs 11/13/23 01/01/24 Rx sustained-release famotidine 20 mg tablet 20 mg PO BID #180 tabs 11/13/23 01/01/24 Rx furosemide 20 mg tablet 20 mg PO DAILY #90 tabs 11/13/23 01/01/24 Rx lisinopril 20 mg tablet 20 mg PO DAILY #90 tabs 11/13/23 01/01/24 Rx metoprolol succinate 50 mg 50 mg PO DAILY #90 tabs 11/13/23 01/01/24 Rx tablet,extended release 24 hr pantoprazole 40 mg tablet,delayed 40 mg PO DAILY #90 tabs 11/13/23 01/01/24 Rx release (Protonix) paroxetine HCl 20 mg tablet 20 mg PO DAILY #90 tabs 11/13/23 01/01/24 Rx rosuvastatin 20 mg tablet 20 mg PO DAILY #90 tabs 11/13/23 01/01/24 Rx Exam Narrative Exam Narrative: 126/70, 97, 37.7 (39.6max), 28, 94 % 4L. HEENT atraumatic; neck supple; lungs soft rales and diminished breath sounds left upper and lower; heart irr/irr; abdomen soft and NT; extremities w/o edema; neuro Ox3, lucid, moves all 4s Results Labs 01/01/24 17:00 01/01/24 16:40 Labs: Laboratory Results - last 24 hr 01/01/24 01/01/24 01/01/24 15:30 16:40 17:00 WBC Cancelled 5.14 RBC Cancelled 4.21 L Hgb Cancelled 12.1 L Hct Cancelled 37.3 L MCV Cancelled 89 MCH Cancelled 28.7 MCHC Cancelled 32.4 RDW Cancelled 13.2 Plt Count Cancelled 115 L MPV Cancelled 10.9 Immature Gran % Cancelled 0.6 Neutrophils % Cancelled 81.1 Band Neutrophils % Cancelled Lymphocytes % Cancelled 11.5 Atypical Lymphs % Cancelled Monocytes % Cancelled 6.4 Eosinophils % Cancelled 0.2 Basophils % Cancelled 0.2 Metamyelocytes % Cancelled Myelocytes % Cancelled Promyelocytes % Cancelled Other Cells % Cancelled Nucleated RBC % Cancelled 0.0 Absolute Neutrophils Cancelled 4.17 Absolute Lymphocytes Cancelled 0.59 L Absolute Monocytes Cancelled 0.33 Absolute Eosinophils Cancelled 0.01 Absolute Basophils Cancelled 0.01 RBC Morphology Cancelled Polychromasia Cancelled Hypochromasia Cancelled Poikilocytosis Cancelled Basophilic Stippling Cancelled Anisocytosis Cancelled Microcytosis Cancelled Macrocytosis Cancelled Spherocytes Cancelled Tear Drop Cells Cancelled Ovalocytes Cancelled Stomatocytes Cancelled [place] Bodies Cancelled [place] Cells/Echinocytes Cancelled Acanthocytes (Spur) Cancelled Schistocytes Cancelled ESR Cancelled 21 H ABG Sample Site ABG pH ABG pCO2 ABG pO2 ABG HCO3 ABG Total CO2 ABG O2 Saturation ABG Base Excess VBG Lactate 1.8 H Sodium 141 Potassium 3.2 L Chloride 105 Carbon Dioxide 25.7 Anion Gap 10.3 BUN 12 Creatinine 0.9 Est GFR (CKD-EPI 2020) 90.74 Glucose 118 H Calcium 8.1 L Magnesium 1.5 L Total Bilirubin 1.4 H AST 22 ALT 21 Alkaline Phosphatase 97 Troponin I < 50 C-Reactive Protein 8.78 H NT-Pro-B Natriuret Pep 6776 H Total Protein 6.7 Albumin 3.1 L Lipase 15 L Procalcitonin 0.3 Urine Color Yellow Urine Clarity Clear Urine pH 6.0 Ur Specific [place] 1.015 Urine Protein Negative Urine Ketones Negative Urine Blood Negative Urine Nitrite Negative Urine Bilirubin Negative Urine Urobilinogen 2.0 H Ur Leukocyte Esterase Negative Urine Glucose Negative COVID-19 Source SARS-CoV-2 (PCR) Influenza Type A (PCR) Influenza Type B (PCR) RSV (PCR) 01/01/24 01/01/24 17:02 18:47 WBC RBC Hgb Hct MCV MCH MCHC RDW Plt Count MPV Immature Gran % Neutrophils % Band Neutrophils % Lymphocytes % Atypical Lymphs % Monocytes % Eosinophils % Basophils % Metamyelocytes % Myelocytes % Promyelocytes % Other Cells % Nucleated RBC % Absolute Neutrophils Absolute Lymphocytes Absolute Monocytes Absolute Eosinophils Absolute Basophils RBC Morphology Polychromasia Hypochromasia Poikilocytosis Basophilic Stippling Anisocytosis Microcytosis Macrocytosis Spherocytes Tear Drop Cells Ovalocytes Stomatocytes [place] Bodies [place] Cells/Echinocytes Acanthocytes (Spur) Schistocytes ESR ABG Sample Site Right Radial ABG pH 7.49 H ABG pCO2 30 L ABG pO2 56 L ABG HCO3 23 ABG Total CO2 20 L ABG O2 Saturation 92 L ABG Base Excess 0 VBG Lactate Sodium Potassium Chloride Carbon Dioxide Anion Gap BUN Creatinine Est GFR (CKD-EPI 2020) Glucose Calcium Magnesium Total Bilirubin AST ALT Alkaline Phosphatase Troponin I C-Reactive Protein NT-Pro-B Natriuret Pep Total Protein Albumin Lipase Procalcitonin Urine Color Urine Clarity Urine pH Ur Specific [place] Urine Protein Urine Ketones Urine Blood Urine Nitrite Urine Bilirubin Urine Urobilinogen Ur Leukocyte Esterase Urine Glucose COVID-19 Source Nasopharynx SARS-CoV-2 (PCR) Negative Influenza Type A (PCR) Negative Influenza Type B (PCR) Negative RSV (PCR) Negative Last Vital Signs Temp 37.7 C H 01/01/24 17:10 Pulse 97 H 01/01/24 18:45 Resp 28 H 01/01/24 19:02 BP 126/70 01/01/24 19:00 Pulse Ox 94 01/01/24 19:02 Time Spent Time spent with Patient: 40-54 minutes Time was spent: preparing to see the patient(eg.review tests), obtaining and/or reviewing separately otained hiistory, ordering medications,tests, procedures, referring, communicating with other health youth career specialist and indepentently interpreting results
--- NOTE | 2024-01-01 21:12 | W.PC.ACHO ---
Registration Status: REG ER Primary Language: Preferred Language: ED Information & Data Chief Complaint SOB 01/01/24 16:51 Triage Note pt called EMS for difficulty 01/01/24 16:33 breathing/fever/cough x 3 days- noted to be hypoxic with movement and crackles. Given solumedrol 125mg and nebulizer by [employer] w /some improvement Medical / Surgical History (Last Reviewed 01/01/24 @ 19:43 by Mehran Rosen MD) Esophageal candidiasis Liver cancer Stomach cancer PTSD (post-traumatic stress disorder) Aortic stenosis Myocardial infarct, old History of gastrectomy (Last Reviewed 01/01/24 @ 19:43 by Mehran Rosen MD) History of esophagogastroduodenoscopy (EGD) (~04/2023) History of colonoscopy (~11/2023) Hx of tonsillectomy History of appendectomy H/O left knee surgery History of Titi-en-Y gastric bypass H/O rotator cuff surgery (~01/19/09) Hx of heart artery stent Most Recent Vital Signs Temperature 37.7 C H 01/01/24 17:10 Temperature Source Oral 01/01/24 16:39 Pulse 114 H 01/01/24 21:00 Pulse 99 H 01/01/24 21:01 Respiratory Rate 22 01/01/24 21:01 Respiratory Effort Short of Breath, Incrsd Work of Breathing 01/01/24 16:39 Blood Pressure 136/93 H 01/01/24 21:00 Blood Pressure Mean 100 01/01/24 21:00 Blood Pressure Position Sitting 01/01/24 16:39 Pulse Oximetry 87 L 01/01/24 20:20 Respiratory End-tidal CO2 24 01/01/24 19:16 Oxygen Delivery Method Nasal Cannula 01/01/24 16:39 Oxygen Flow Rate 4 01/01/24 16:39 Allergies fenofibrate Allergy (Unknown, Verified 01/01/24 17:15) unknown Suicidal ideation Precautions Isolation Standard precaution 01/01/24 16:39 Active Medications Generic Name Dose Route Start Last Admin Trade Name Freq PRN Reason Stop Dose Admin Sodium Chloride 1,000 mls @ 150 mls/hr 01/01/24 17:00 01/01/24 16:56 Saline 1000ml Bag IV 150 mls/hr INFUSION MANPREET Administration Iohexol 100 ml 01/01/24 17:45 01/01/24 17:32 Omnipaque 350 Mg/Ml 100 Ml Btl IJ 01/31/24 23:59 100 ml DIRECTED MANPREET Administration Sodium Chloride 50 ml 01/01/24 17:45 01/01/24 17:33 Normal Saline - Diluent 50 Ml Vial IJ 50 ml .FOR DI USE MANPREET Administration IV IV Catheter Type [Left Hand] Peripheral IV IV Catheter Type [Right Peripheral IV Antecubital] IV Catheter Gauge [Left Hand] 20 IV Catheter Gauge [Right 18 Antecubital] Diet Orders Category Date Time Status Regular/Normal [DIET] Nutrition 01/02/24 Breakfast Ordered Diagnostics 01/01/24 01/01/24 01/01/24 Range/Units 18:47 17:02 17:00 WBC 5.14 RBC 4.21 L Hgb 12.1 L Hct 37.3 L MCV 89 MCH 28.7 MCHC 32.4 RDW 13.2 Plt Count 115 L MPV 10.9 Immature Gran % 0.6 Neutrophils % 81.1 Band Neutrophils % Lymphocytes % 11.5 Atypical Lymphs % Monocytes % 6.4 Eosinophils % 0.2 Basophils % 0.2 Metamyelocytes % Myelocytes % Promyelocytes % Other Cells % Nucleated RBC % 0.0 Absolute Neutrophils 4.17 Absolute Lymphocytes 0.59 L Absolute Monocytes 0.33 Absolute Eosinophils 0.01 Absolute Basophils 0.01 RBC Morphology Polychromasia Hypochromasia Poikilocytosis Basophilic Stippling Anisocytosis Microcytosis Macrocytosis Spherocytes Tear Drop Cells Ovalocytes Stomatocytes [place] Bodies [place] Cells/Echinocytes Acanthocytes (Spur) Schistocytes ESR 21 H ABG Sample Site Right Radial ABG pH 7.49 H (7.35-7.45) ABG pCO2 30 L (35-45) mmHg ABG pO2 56 L (80-105) mmHg ABG HCO3 23 (22-26) mmol/L ABG Total CO2 20 L (23-27) mmol/L ABG O2 Saturation 92 L (95-98) % ABG Base Excess 0 (-2-3) mmol/L VBG Lactate (0.6-1.4) mmol/L Sodium (136-145) mmol/L Potassium (3.5-5.1) mmol/L Chloride (98-107) mmol/L Carbon Dioxide (21.0-32.0) mmol/L Anion Gap (3-11) mmol/L BUN (7-18) mg/dL Creatinine (0.70-1.30) mg/dL Est GFR (CKD-EPI 2020) (mL/min/1.73m2) Glucose (74-106) mg/dL Calcium (8.5-10.1) mg/dL Magnesium (1.8-2.4) mg/dL Total Bilirubin (0.2-1.0) mg/dL AST (15-37) U/L ALT (16-63) U/L Alkaline Phosphatase (46-116) U/L Troponin I (< or =60) ng/L C-Reactive Protein (<or=0.5) mg/dL NT-Pro-B Natriuret Pep (<300) pg/mL Total Protein (6.4-8.2) g/dL Albumin (3.4-5.0) g/dL Lipase (16-77) U/L Procalcitonin ng/mL Urine Color (Yellow) Urine Clarity (Clear) Urine pH (5-8) Ur Specific [place] (1.005-1.025) Urine Protein (Neg-Trace) mg/dL Urine Ketones (Negative) mg/dL Urine Blood (Negative) Urine Nitrite (Negative) Urine Bilirubin (Negative) Urine Urobilinogen (Up to 0.2) mg/dL Ur Leukocyte Esterase (Negative) Urine Glucose (Negative) mg/dL COVID-19 Source Nasopharynx SARS-CoV-2 (PCR) Negative (Negative) Influenza Type A (PCR) Negative (Negative) Influenza Type B (PCR) Negative (Negative) RSV (PCR) Negative (Negative) 01/01/24 01/01/24 Range/Units 16:40 15:30 WBC Cancelled RBC Cancelled Hgb Cancelled Hct Cancelled MCV Cancelled MCH Cancelled MCHC Cancelled RDW Cancelled Plt Count Cancelled MPV Cancelled Immature Gran % Cancelled Neutrophils % Cancelled Band Neutrophils % Cancelled Lymphocytes % Cancelled Atypical Lymphs % Cancelled Monocytes % Cancelled Eosinophils % Cancelled Basophils % Cancelled Metamyelocytes % Cancelled Myelocytes % Cancelled Promyelocytes % Cancelled Other Cells % Cancelled Nucleated RBC % Cancelled Absolute Neutrophils Cancelled Absolute Lymphocytes Cancelled Absolute Monocytes Cancelled Absolute Eosinophils Cancelled Absolute Basophils Cancelled RBC Morphology Cancelled Polychromasia Cancelled Hypochromasia Cancelled Poikilocytosis Cancelled Basophilic Stippling Cancelled Anisocytosis Cancelled Microcytosis Cancelled Macrocytosis Cancelled Spherocytes Cancelled Tear Drop Cells Cancelled Ovalocytes Cancelled Stomatocytes Cancelled [place] Bodies Cancelled [place] Cells/Echinocytes Cancelled Acanthocytes (Spur) Cancelled Schistocytes Cancelled ESR Cancelled ABG Sample Site ABG pH (7.35-7.45) ABG pCO2 (35-45) mmHg ABG pO2 (80-105) mmHg ABG HCO3 (22-26) mmol/L ABG Total CO2 (23-27) mmol/L ABG O2 Saturation (95-98) % ABG Base Excess (-2-3) mmol/L VBG Lactate 1.8 H (0.6-1.4) mmol/L Sodium 141 (136-145) mmol/L Potassium 3.2 L (3.5-5.1) mmol/L Chloride 105 (98-107) mmol/L Carbon Dioxide 25.7 (21.0-32.0) mmol/L Anion Gap 10.3 (3-11) mmol/L BUN 12 (7-18) mg/dL Creatinine 0.9 (0.70-1.30) mg/dL Est GFR (CKD-EPI 2020) 90.74 (mL/min/1.73m2) Glucose 118 H (74-106) mg/dL Calcium 8.1 L (8.5-10.1) mg/dL Magnesium 1.5 L (1.8-2.4) mg/dL Total Bilirubin 1.4 H (0.2-1.0) mg/dL AST 22 (15-37) U/L ALT 21 (16-63) U/L Alkaline Phosphatase 97 (46-116) U/L Troponin I < 50 (< or =60) ng/L C-Reactive Protein 8.78 H (<or=0.5) mg/dL NT-Pro-B Natriuret Pep 6776 H (<300) pg/mL Total Protein 6.7 (6.4-8.2) g/dL Albumin 3.1 L (3.4-5.0) g/dL Lipase 15 L (16-77) U/L Procalcitonin 0.3 ng/mL Urine Color Yellow (Yellow) Urine Clarity Clear (Clear) Urine pH 6.0 (5-8) Ur Specific [place] 1.015 (1.005-1.025) Urine Protein Negative (Neg-Trace) mg/dL Urine Ketones Negative (Negative) mg/dL Urine Blood Negative (Negative) Urine Nitrite Negative (Negative) Urine Bilirubin Negative (Negative) Urine Urobilinogen 2.0 H (Up to 0.2) mg/dL Ur Leukocyte Esterase Negative (Negative) Urine Glucose Negative (Negative) mg/dL COVID-19 Source SARS-CoV-2 (PCR) (Negative) Influenza Type A (PCR) (Negative) Influenza Type B (PCR) (Negative) RSV (PCR) (Negative) 01/01/24 17:30 Blood Culture - Pending Blood 01/01/24 16:40 Blood Culture - Pending Blood Intake and Output - 24 Hour Total 01/01/24 16:25 thru 01/01/24 19:53 Intake Total 510 Output Total 1700 Balance -1190 Weight 90.9 kg Intake: IV 510 Output: Urine 1700 Other: Urine Color Yellow Urine Appearance Clear Urinary Catheter Urinary Catheter Date of 01/01/24 Insertion [Uretheral ([place])] Time of insertion [Uretheral ( 17:40 [place])] Falls Risk Assessment History of Falls Previous History 01/01/24 16:39 Contributing Factors Impairments 01/01/24 16:39 Ambulatory Aids Independent 01/01/24 16:39 Tubes/Lines W/no contributing factors 01/01/24 16:39 Fall Total Score 28 01/01/24 16:39 Level of Risk Moderate Risk 01/01/24 16:39 Problems (Last Reviewed 01/01/24 @ 19:43 by Mehran Rosen MD) Pneumonia (Acute) v v v v v v v v v Sending and/or Receiving Nurses: Please use comment section below to note any information pertinent to the patient hand-off not included above. Information / Comments: Report received from: Ghazala Mclaughlin RN
[2024-01-01] MEDS: Acetaminophen 325 MG TAB 650 MG PO (22:50)
[2024-01-01] MEDS: Apixaban 5 MG TAB PO (22:51)
[2024-01-01] MEDS: Sucralfate 1 GM TAB PO (22:51)
[2024-01-01] MEDS: Famotidine 20 MG TAB PO (22:51)
[2024-01-02] VITALS (66 sets, daily range): BP systolic 103–137; BP diastolic 65–90; PULSE 86–88; RESP 16–18; TEMP 35.2–37; O2SAT 93–100
[2024-01-02 07:20] LABS: Potassium 3.4 mmol/L (3.5-5.1)
[2024-01-02 07:23] LABS: Magnesium 2.1 mg/dL (1.8-2.4)
[2024-01-02] MEDS: Apixaban 5 MG TAB PO ×2 (08:54→19:44)
[2024-01-02] MEDS: Pantoprazole 40 MG TABCR PO (08:54)
[2024-01-02] MEDS: Famotidine 20 MG TAB PO ×2 (08:54→16:58)
[2024-01-02] MEDS: buPROPion-CR 150 MG TABCR PO (08:54)
[2024-01-02] MEDS: Lisinopril 20 MG TAB PO (08:54)
[2024-01-02] MEDS: amLODIPine 10 MG TAB PO (08:54)
[2024-01-02] MEDS: Sucralfate 1 GM TAB PO ×4 (08:54→22:01)
[2024-01-02] MEDS: Metoprolol CR 50 MG TABCR PO (08:54)
[2024-01-02] MEDS: Furosemide 20 MG TAB PO (08:55)
[2024-01-02] MEDS: Ferrous Sulfate 325 MG TAB PO (08:55)
--- NOTE | 2024-01-02 08:58 | PDOC.CMIN ---
Date of service: 01/02/24 Time of Service: 08:58 Care Management Initial Assmt Initial Assessment REASON FOR HOSPITALIZATION:: Pneumonia PREVIOUS FUNCTIONAL STATUS/SOCIAL/FAMILY SUPPORTS:: Agustin lives in an apartment in a senior housing facility in [place] with his girlfriend Darlene. 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 He does not use a cane or walker and is independent at baseline. CURRENT FUNCTIONAL STATUS:: Agustin was sitting up in a chair when CM met with him. He was pleasant and friendly and agreeable to conversation. Agustin shared that he was in the [employer] in [facility] and did a lot of skydiving. He has had issues with his hips, knees and ankles since that time. Agustin also talked about his love of motorcycles. He used to have 3 Harleys however he lost them when he went through a divorce. 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 In discussing discharge plans, Agustin stated that he does not feel he will need any new services. He did state that he had home health once in the past after an extensive illness when he was living in [facility]. ADVANCE DIRECTIVES:: none on file Has patient been provided with info about the portal/API?: Yes Did the patient sign up for the portal?: No CODE STATUS:: DNR/DNI INSURANCE COVERAGE / FINANCIAL ISSUES:: [facility] CURRENT HOME/COMMUNITY SERVICES/EQUIPMENT:: none PRIMARY CARE PHYSICIAN:: Drea Martines POTENTIAL DISCHARGE NEEDS:: follow up with PCP and plan of care PATIENT/FAMILY EDUCATION NEEDS:: Review of discharge instructions, activity, limitations, follow up plan, discuss [employer] TRANSPORTATION:: via private vehicle with partner PLAN:: Anticipate Agustin will be discharged home with no new services. He will follow up with his community providers and plan of care and transport with his partner. CM will follow and continue to assess for discharge concerns. 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 repeat in 2025 Microcytic anemia (Acute) Gastric cardia ulcer (Acute) Hiatal hernia with GERD (Acute) Hx of custodial use of blood thinners (Acute) Diarrhea (Acute) Paroxysmal atrial fibrillation (Acute) new onset 06/17 w TAVR RH LBBB (left bundle branch block) (Acute) new 06/17 w TAVR RH GERD (gastroesophageal reflux disease) (Chronic) Impotence of organic origin (Acute) Anemia (Chronic) Heartburn (Acute) Disorder of skull (Acute) Anxiety (Chronic) Asthma (Chronic) Hyperlipidemia (Acute) Coronary arteriosclerosis (Acute) Essential hypertension (Acute) Medical History Esophageal candidiasis Liver cancer Stomach cancer PTSD (post-traumatic stress disorder) Pt. requests just tap his foot before waking him up, and call his name before doing anything Aortic stenosis w TAVR in [place] 05/31/22 RH Myocardial infarct, old w stent placed in [place] 2001 History of gastrectomy Surgical History History of esophagogastroduodenoscopy (EGD) (~04/2023) biopsies taken History of colonoscopy (~11/2023) Hx of tonsillectomy History of appendectomy H/O left knee surgery History of Titi-en-Y gastric bypass H/O rotator cuff surgery (~01/19/09) Right Hx of heart artery stent x3 in [place] 2001 Family History Mother , 65 Cancer Heart disease of [place] Hypertension Father , 43 Heart disease [place] at age 43 Diabetes Hypertension Son , 5 Months Cancer SIDS Maternal Grandfather Heart disease Hyperlipidemia Maternal Grandmother Heart disease Hyperlipidemia Paternal Grandmother No problems noted. Social History Smoking/Tobacco Use Status: Former Tobacco Use tobacco type: cigarettes Quit Date: 08/27/74 Tobacco: How many years used: 10 Second Hand Exposure: Yes Smoking risk assessment performed?: Yes Alcohol Intake: former Substance use type: former substance user Household members: significant other Housing: apartment Communication Needs: None Do you need help understanding health information?: Often Pets and animals: Yes Pets and animals: dog(s) Sexually active: No Do you think of yourself as: straight/heterosexual Current gender identity: male What is your relationship status?: How often do you talk on the phone with friends or family?: once per week How often do you get together with friends or relatives?: never How often do you attend congregational or zoroastrianism services?: decline to answer Do you belong to any clubs or organized social groups?: no Panel score (0-1 are the most socially isolated patients): 0 What type of physical activity do you participate in: none Frequency: does not exercise Olive/Synagogue: None Special olive needs: No Seatbelt use: sometimes Helmet use: Yes Helmet use: sometimes Drive intox or ride w/intox distribution 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 SDOH(Care Management) Screening Will the Patient Participate in the Screening?: Yes Do you worry about having a steady place to live?: no Problems where you live: no known problems In the past 12 months, have you had to go without electric, gas, oil or water in your home?: no Have you or anyone in your house had to go without enough food to eat?: no Has lack of transportation kept you from medical appointments or from doing things needed for daily living?: no Has anyone in your support network made you feel unsafe for any reason?: no
[2024-01-02] MEDS: PARoxetine 20 MG TAB PO (10:10)
[2024-01-02] MEDS: Tamsulosin 0.4 MG CAPCR PO (13:33)
--- NOTE | 2024-01-02 16:47 | CHAPLAIN ---
I had a short visit with Agustin. He was up in the chair. I explained my role and offered support. Agustin thanked me for the visit but was not interested in further conversation.
[2024-01-02] MEDS: CEFEPIME 2 GM in Normal Saline 100 ML IVPB ×2 (16:57→22:54)
[2024-01-02] MEDS: AZITHROMYCIN 250 MG in Normal Saline 250 ML IVPB (18:29)
[2024-01-02] MEDS: Rosuvastatin 20 MG TAB PO (19:44)
[2024-01-02 22:28] LABS: Legionella Ag Detection Urine Negative (Negative)
[2024-01-02] MEDS: Acetaminophen 325 MG TAB 650 MG PO (22:54)
[2024-01-03 00:27] VITALS: BP 122/89; PULSE 90; RESP 18; TEMP 36.7; O2SAT 96
[2024-01-03 07:02] VITALS: BP 124/98; PULSE 92; RESP 15; O2SAT 96
[2024-01-03] MEDS: Sucralfate 1 GM TAB PO ×3 (08:10→21:01)
[2024-01-03] MEDS: Lisinopril 20 MG TAB PO (08:10)
[2024-01-03] MEDS: Pantoprazole 40 MG TABCR PO (08:10)
[2024-01-03] MEDS: Famotidine 20 MG TAB PO ×2 (08:10→16:06)
[2024-01-03] MEDS: Apixaban 5 MG TAB PO ×2 (08:10→20:02)
[2024-01-03] MEDS: Tamsulosin 0.4 MG CAPCR PO (08:10)
[2024-01-03] MEDS: Ferrous Sulfate 325 MG TAB PO (08:10)
[2024-01-03] MEDS: Metoprolol CR 50 MG TABCR PO (08:10)
[2024-01-03] MEDS: Furosemide 20 MG TAB PO (08:10)
[2024-01-03] MEDS: buPROPion-CR 150 MG TABCR PO (08:10)
[2024-01-03] MEDS: PARoxetine 20 MG TAB PO (08:10)
[2024-01-03] MEDS: amLODIPine 10 MG TAB PO (08:10)
[2024-01-03] MEDS: CEFEPIME 2 GM in Normal Saline 100 ML IVPB ×2 (08:45→16:07)
--- NOTE | 2024-01-03 10:00 | W.PM.PROGNOT ---
Date of Service Date of service: 01/03/24 Time of Service: 10:02 Assessment and Plan Assessment and plan (1) Pneumonia: Status: Acute Assessment and plan: CAP:Was on IV azithromycin and cefepime- changed to ceftriaxone (2) Bacteremia: Status: Acute Assessment and plan: 12/31 GNC in blood cultures: Hib IV ceftriaxone 2 gm IV Q 24 hours was on azithromycin and cefepime IV Repeat blood cultures results pending (3) On deep vein thrombosis (DVT) prophylaxis: Status: Acute Assessment and plan: On Eliquis for atrial fibrillation (4) Paroxysmal atrial fibrillation: Status: Acute Assessment and plan: On metoprolol Cr and Eliquis (5) GERD (gastroesophageal reflux disease): Status: Chronic Assessment and plan: Continue PPI (6) Essential hypertension: Status: Acute Assessment and plan: Continue home meds (7) Discharge planning issues: Status: Acute Assessment and plan: d/c home on oral antibiotics when repeated blood culture shows negative results Discussed with Dr. Booth Subjective Subjective Patient reports: no new complaints, feels better, tolerating liquids well, tolerating a regular diet, voiding w/o difficulty, flatus and bowel movement; denies still having pain, diarrhea, blood in stool, nausea, vomiting, shortness of breath or fever Exam Narrative Exam Narrative: Constitutional The patient is sitting in chair , without acute distress Neuro:alert and oriented to self, person, place time and situation. No neurological focal deficit, Resp: Normal respiratory pattern, speaks in full sentences, unlabored breathing, clear lung bilaterally Cardio: regular rhythm, S1, S2, no murmur, GI: Abdomen is not distended, soft and non tender, bowel sounds are present : Negative Costovertebral angle tenderness Extremities: strength 5/5 to bilateral lower and upper extremities Psych: RASS 0, congruent mood and normal affect. Objective Last Vital Signs Temp 36.7 C 01/03/24 00:27 Pulse 90 01/03/24 00:27 Resp 18 01/03/24 00:27 BP 122/89 01/03/24 00:27 Pulse Ox 96 01/03/24 00:27 Laboratory Results - last 24 hr 01/02/24 03:25 Urine Legionella Ag Negative Time Spent with Patient Time Spent with Patient: >50 minutes Time was spent: preparing to see the patient(eg.review tests), obtaining and/or reviewing separately otained hiistory, ordering medications,tests, procedures, referring, communicating with other health palliative care nurse, indepentently interpreting results, counseling the patient and care coordination
--- NOTE | 2024-01-03 12:27 | PDOC.CMPRO ---
Date of service: 01/03/24 Time of Service: 12:27 Care Management Progress Note Progress Note Text Progress Note Text: S/O:Agustin was sitting up in a chair when CM met with him. He was pleasant and engaged easily with CM. Agustin stated that he is feeling much better. He did note that at times he can still feel and hear gurgling in his left upper back and knows he is not quite ready to go home. He has been told that he will likely need to remain hospitalized at least until Sunday. Agustin's blood cultures drawn on 01/01/24 are growing H. inlfluenza. Repeat blood cultures were drawn today. Clinically, Agustin is doing well. [place] remains afebrile, his WBC is WNL and he is saturating well (98%) on room air. Agustin did remind CM that when he is discharged, his prescriptions need to go to [facility] in [facility]. A: Agustin is a 73 year old man admitted on 01/01/24 with pneumonia P:Anticipate Agustin will be discharged home with no new services. He will follow up with his community providers and plan of care and transport with his partner. CM will follow and continue to assess for discharge concerns. SDOH(Care Management) Screening Will the Patient Participate in the Screening?: Yes Do you worry about having a steady place to live?: no Problems where you live: no known problems In the past 12 months, have you had to go without electric, gas, oil or water in your home?: no Have you or anyone in your house had to go without enough food to eat?: no Has lack of transportation kept you from medical appointments or from doing things needed for daily living?: no Has anyone in your support network made you feel unsafe for any reason?: no
[2024-01-03 15:50] VITALS: BP 137/84; PULSE 78; RESP 16; TEMP 36.9; O2SAT 98
[2024-01-03] MEDS: AZITHROMYCIN 250 MG in Normal Saline 250 ML IVPB (17:51)
[2024-01-03] MEDS: Rosuvastatin 20 MG TAB PO (20:02)
[2024-01-03] MEDS: Normal Saline Flush 10 ML SYR IVP (20:03)
[2024-01-03] MEDS: Acetaminophen 325 MG TAB 650 MG PO (21:00)
[2024-01-03] MEDS: Melatonin 3 MG TAB 9 MG PO (21:01)
[2024-01-03 23:55] VITALS: BP 107/60; PULSE 84; RESP 18; TEMP 37.9; O2SAT 95
[2024-01-04 00:17] VITALS: BP 120/66; PULSE 90; RESP 18; TEMP 37.1; O2SAT 95
[2024-01-04] MEDS: Normal Saline Flush 10 ML SYR IVP ×2 (06:01→08:06)
[2024-01-04] MEDS: cefTRIAXone 2 GM/50 ML BAG IVPB (06:02)
[2024-01-04 06:52] LABS: Abs Immature Grans 0.23 10^3/uL (0.0-0.06); Absolute Basophil Count 0.04 10^3/uL (0.0-0.2); Absolute Lymphocyte Count 1.05 10^3/uL (1.2-3.4); Absolute Monocyte Count 0.84 10^3/uL (0.1-0.8); Absolute Neutrophil Count 7.75 10^3/uL (1.2-6.7); Basophils % 0.4 %; HCT 36.5 % (40.0-50.0); Immature Grans % 2.3 %; Lymphocytes % 10.5 %; MCH 29.1 pg (27.0-33.0); MCHC 32.9 % (32.0-36.0); MCV 88 fL (80-95); Monocytes % 8.4 %; Neutrophils % 77.4 %; Platelet Count 147 10^3/uL (130-400); RBC 4.13 10^6/uL (4.36-5.78); RDW 13.2 % (11.8-14.1); RDW-SD 42.6 fL; WBC 10.01 10^3/uL (4.4-10.8)
[2024-01-04 07:06] LABS: Anion Gap 10.7 mmol/L (3-11); BUN 24 mg/dL (7-18); CO2 24.3 mmol/L (21.0-32.0); Calcium 8.4 mg/dL (8.5-10.1); Chloride 105 mmol/L (98-107); Estimated GFR 79.97 (mL/min/1.73m2); Glucose 117 mg/dL (74-106); Magnesium 2.1 mg/dL (1.8-2.4); Potassium 3.7 mmol/L (3.5-5.1); Sodium 140 mmol/L (136-145)
[2024-01-04 07:19] VITALS: BP 133/82; PULSE 92; RESP 17; TEMP 36.6; O2SAT 96
[2024-01-04] MEDS: Furosemide 20 MG TAB PO (08:05)
[2024-01-04] MEDS: Ferrous Sulfate 325 MG TAB PO (08:05)
[2024-01-04] MEDS: PARoxetine 20 MG TAB PO (08:05)
[2024-01-04] MEDS: Pantoprazole 40 MG TABCR PO (08:05)
[2024-01-04] MEDS: amLODIPine 10 MG TAB PO (08:06)
[2024-01-04] MEDS: Apixaban 5 MG TAB PO (08:06)
[2024-01-04] MEDS: Famotidine 20 MG TAB PO (08:06)
[2024-01-04] MEDS: Tamsulosin 0.4 MG CAPCR PO (08:06)
[2024-01-04] MEDS: Lisinopril 20 MG TAB PO (08:06)
[2024-01-04] MEDS: buPROPion-CR 150 MG TABCR PO (08:06)
[2024-01-04] MEDS: Metoprolol CR 50 MG TABCR PO (08:06)
[2024-01-04] MEDS: Sucralfate 1 GM TAB PO ×2 (08:06→11:34)
--- NOTE | 2024-01-04 08:22 | PDOC.CMPRO ---
Date of service: 01/04/24 Time of Service: 08:22 Care Management Progress Note Progress Note Text Progress Note Text: S/O:Agustin was sitting up in a chair when CM met with him. A: Agustin is a 73 year old man admitted on 01/01/24 with pneumonia P:Anticipate Agustin will be discharged home with no new services. He will follow up with his community providers and plan of care and transport with his partner. CM will follow and continue to assess for discharge concerns. SDOH(Care Management) Screening Will the Patient Participate in the Screening?: Yes Do you worry about having a steady place to live?: no Problems where you live: no known problems In the past 12 months, have you had to go without electric, gas, oil or water in your home?: no Have you or anyone in your house had to go without enough food to eat?: no Has lack of transportation kept you from medical appointments or from doing things needed for daily living?: no Has anyone in your support network made you feel unsafe for any reason?: no
--- NOTE | 2024-01-04 10:27 | DSE_ITS ---
<Statement entered by Angel Booth - 01/04/24 16:09> to [facility], he was discharged with 6 doses (or 3 days) of additional antibiotics Date of service: 01/04/24 Time of Service: 13:00 DS: Diagnosis Discharge Diagnosis (1) Pneumonia: Status: Acute (2) Bacteremia: Status: Acute (3) On deep vein thrombosis (DVT) prophylaxis: Status: Acute (4) Paroxysmal atrial fibrillation: Status: Acute (5) GERD (gastroesophageal reflux disease): Status: Chronic (6) Essential hypertension: Status: Acute Discharge Plan Disposition Patient Disposition: Home Condition: Improving Discharge Details Reason For Visit: Pneumonia Admit Date/Time: 01/01/24 19:49 Admit Provider: Angel Booth Attending Provider: Angel Booth Primary Care Provider: [facility] Hospital Course Hospital Course: This 73 years old male patient with a prior history of pneumonia presented at [facility] on 01/01/2024 with a history of 2 days of productive cough with brown sputum, shortness of breath, and subjective fevers. At the time the patient denied chills, chest pain. On arrival to the ED the temperature was 39.6 and the patient required oxygen supplementation of 4 L for saturation in the low to mid 90s. Chest CT showed dense bilateral infiltrates on the left side. Other remarkable findings were magnesium of 1.5, potassium of 3.2, and an ABG showing a pH of 7.49, pCO2 of 30, pO2 of 56. In the ED the patient was treated with IV Rocephin and azithromycin and IV magnesium replacement. The patient was ad mitted to the medical surgical floor by the hospitalist for pneumonia and hypoxemia, hypokalemia and hypomagnesemia. Blood culture grew haemophilus influenza, antibiotics were narrowed to only ceftriaxone IV. Repeated blood culture on 01/03/2024 was negative at 24 hours. And the patient will be discharged on cefpodoxime 400 mg orally every 12 to be taken until 01/08/2024. The patient is afebrile, hemodynamically stable with normal electrolytes today. T the patient reported that his medicines are delivered by [facility] by mail and requested that we provide antibiotic therapy until med delivery on Sunday. The patient will be discharged home with the 6 doses of 3 antibiotics. The patient will have to follow-up with his PCP within a week of discharge. Discussed with Dr. Booth Home Meds and New Rx's Prescriptions: New cefpodoxime 200 mg Tablet 400 mg PO BID Qty: 16 0RF Bio-K plus 50 billion cell capsule,delayed release(DR/EC) 1 cap PO DAILY Qty: 6 0RF Continued albuterol sulfate [ProAir HFA] 90 mcg/actuation HFA aerosol inhaler 2 puff inhalation Q6H PRN (Reason: shortness of breath or wheezing) Qty: 8.5 3RF hydrocortisone acetate [Anusol-HC] 25 mg suppository 25 mg UT BID PRN (Reason: hemorrhoids) Qty: 24 1RF cyclobenzaprine 5 mg tablet 5 mg PO TID PRN (Reason: back pain) Qty: 14 0RF Rx Instructions: Take 1 tablet by mouth three times a day as needed for back pain sucralfate [Carafate] 1 gram tablet 1 g PO QACHS Qty: 120 12RF melatonin 10 mg tablet 10 mg PO DAILY PRN ferrous sulfate 325 mg (65 mg iron) tablet 325 mg PO DAILY Qty: 90 1RF Rx Instructions: Take 1 tablet once a day with your vitamin c or a glass of orange juice alfuzosin 10 mg tablet extended release 24 hr 10 mg PO DAILY Qty: 90 3RF Rx Instructions: administer after the same meal each day amlodipine 10 mg tablet 10 mg PO DAILY Qty: 90 3RF Eliquis 5 mg tablet 5 mg PO BID Qty: 180 3RF Hold Instructions: Resume on 05/27/23. bupropion HCl 150 mg tablet sustained-release 12 hr 150 mg PO QAM Qty: 90 3RF famotidine 20 mg tablet 20 mg PO BID Qty: 180 3RF furosemide 20 mg tablet 20 mg PO DAILY Qty: 90 3RF lisinopril 20 mg tablet 20 mg PO DAILY Qty: 90 3RF Patient Comments: pt. reports he no longer takes metoprolol succinate 50 mg tablet extended release 24 hr 50 mg PO DAILY Qty: 90 3RF pantoprazole [Protonix] 40 mg tablet,delayed release (DR/EC) 40 mg PO DAILY Qty: 90 12RF paroxetine HCl 20 mg tablet 20 mg PO DAILY Qty: 90 3RF rosuvastatin 20 mg tablet 20 mg PO DAILY Qty: 90 3RF Discharge Instructions Stand Alone Forms: Nursing Discharge Form Referrals: Drea Martines NP [Primary Care Provider] - 01/14/24 4:20 pm Activity:: Activity as Tolerated Equipment/Supplies:: No Equipment Needed Diet:: As Tolerated Discharge Orders Discharge Orders: Discharge Order (Routine); Ordered 01/04/24 Ordered By: Lilian Rodriguez Discharge Data Discharge Date/Time-TO BE ENTERED AT DEPARTURE: 01/04/24 15:39 DS: Summary Time Spent with Patient providing and/or coordinating discharge services: Greater than 30 minutes Status at Discharge Functional status at discharge: independent ambulation Overall status at discharge: patient is back to baseline Mental Status: mental status grossly normal Speech and Movement: speech and movement normal Mood: congruent mood Affect: normal affect Quality:SDOH Health Related Social Needs: No Data to Display Exam Narrative Exam Narrative: Constitutional The patient is sitting in chair , without acute distress Neuro:alert and oriented to self, person, place time and situation. No neurological focal deficit, Resp: Normal respiratory pattern, unlabored breathing, clear lung bilaterally Cardio: regular rhythm, S1, S2, no murmur, GI: Abdomen is not distended, soft and non tender, bowel sounds are present : Negative Costovertebral angle tenderness Extremities: strength 5/5 to bilateral lower and upper extremities Psych: RASS 0, congruent mood and normal affect. Psych Mental Status: mental status grossly normal Speech and Movement: speech and movement normal Mood: congruent mood Affect: normal affect DS: Data Vitals/I&O Vitals and I&O: Vital Signs Temperature 36.6 C 01/04/24 07:19 Temperature Source Tympanic 01/04/24 07:19 Pulse 92 H 01/04/24 07:19 Pulse Rhythm Regular 01/04/24 08:05 Pulse 106 H 01/01/24 21:15 Respiratory Rate 17 01/04/24 07:19 Respiratory Effort Normal, Non-Labored 01/04/24 08:05 Respiratory Depth Normal 01/04/24 08:05 Respiratory Pattern Normal 01/04/24 08:05 Blood Pressure 133/82 01/04/24 07:19 Blood Pressure Mean 102 01/02/24 08:01 Blood Pressure Position Supine 01/01/24 21:48 Pulse Oximetry 96 01/04/24 07:19 Respiratory End-tidal CO2 01/01/24 19:16 Oxygen Delivery Method Room Air 01/04/24 07:19 Oxygen Flow Rate 0 01/04/24 07:19 Fraction of Inspired Oxygen (FIO2) 65 01/01/24 21:48 Pain Level 0 01/04/24 08:05 Comment 25L 01/02/24 02:00 Intake & Output 01/03/24 01/03/24 01/04/24 11:59 23:59 11:59 Intake Total 1170 / 1760 590 / 1760 600 / 600 Output Total 900 / 900 Balance 270 / 860 590 / 860 600 / 600 Intake: IV 450 / 800 350 / 800 50 / 50 Oral 720 / 960 240 / 960 550 / 550 Output: Urine 900 / 900 Other: Urine Color Yellow Yellow Yellow Urine Appearance Clear Clear Clear Urine Odor Normal Normal Comment pT independent in bathroom, slightly incontinent Voiding Methods Toilet Diaper Toilet Diaper Incontinent Incontinent Incontinent Data Completed and Pending Labs on day of discharge: Labs from last 24 hours 01/04/24 06:22 WBC 10.01 RBC 4.13 L Hgb 12.0 L Hct 36.5 L MCV 88 MCH 29.1 MCHC 32.9 RDW 13.2 Plt Count 147 MPV 11.0 Immature Gran % 2.3 Neutrophils % 77.4 Lymphocytes % 10.5 Monocytes % 8.4 Eosinophils % 1.0 Basophils % 0.4 Nucleated RBC % 0.0 Absolute Neutrophils 7.75 H Absolute Lymphocytes 1.05 L Absolute Monocytes 0.84 H Absolute Eosinophils 0.10 Absolute Basophils 0.04 Sodium 140 Potassium 3.7 Chloride 105 Carbon Dioxide 24.3 Anion Gap 10.7 BUN 24 H Creatinine 1.0 Est GFR (CKD-EPI 2020) 79.97 Glucose 117 H Calcium 8.4 L Magnesium 2.1 01/03/24 10:30 Blood Blood Culture - Pending 01/03/24 10:20 Blood Blood Culture - Pending Preliminary micro results at discharge 01/03/24 10:30 Blood Culture - Pending Blood 01/03/24 10:20 Blood Culture - Pending Blood PFSH All Active Problems (Updated 01/04/24 @ 15:25 by Lilian Rodriguez APRN) Bacteremia (Acute) Discharge planning issues (Acute) On deep vein thrombosis (DVT) prophylaxis (Acute) Pneumonia (Acute) Sepsis (Acute) Acute hypoxemic respiratory failure (Acute) Pneumonia (Acute) Adenomatous colon polyp (Acute) Pancolonic diverticulosis (Acute) Internal and external hemorrhoids without complication (Acute) Internal thrombosed hemorrhoids (Acute) Incomplete rectal prolapse (Acute) Prediabetes (Acute) Bleeding acute gastric ulcer (Acute) History of malignant neoplasm metastatic to liver (Acute) History of gastric cancer (Acute) 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 repeat in 2025 Microcytic anemia (Acute) Gastric cardia ulcer (Acute) Hiatal hernia with GERD (Acute) Hx of jail use of blood thinners (Acute) Diarrhea (Acute) Paroxysmal atrial fibrillation (Acute) new onset 06/17 w TAVR RH LBBB (left bundle branch block) (Acute) new 06/17 w TAVR RH GERD (gastroesophageal reflux disease) (Chronic) Impotence of organic origin (Acute) Anemia (Chronic) Heartburn (Acute) Disorder of skull (Acute) Anxiety (Chronic) Asthma (Chronic) Hyperlipidemia (Acute) Coronary arteriosclerosis (Acute) Essential hypertension (Acute) Medical History Esophageal candidiasis Liver cancer Stomach cancer PTSD (post-traumatic stress disorder) Pt. requests just tap his foot before waking him up, and call his name before doing anything Aortic stenosis w TAVR in [place] 05/31/22 RH Myocardial infarct, old w stent placed in [place] 2001 History of gastrectomy Surgical History History of esophagogastroduodenoscopy (EGD) (~04/2023) biopsies taken History of colonoscopy (~11/2023) Hx of tonsillectomy History of appendectomy H/O left knee surgery History of Titi-en-Y gastric bypass H/O rotator cuff surgery (~01/19/09) Right Hx of heart artery stent x3 in [place] 2001 Family History Mother , 65 Cancer Heart disease of [place] Hypertension Father , 43 Heart disease [place] at age 43 Diabetes Hypertension Son , 5 Months Cancer SIDS Maternal Grandfather Heart disease Hyperlipidemia Maternal Grandmother Heart disease Hyperlipidemia Paternal Grandmother No problems noted. Social History Smoking/Tobacco Use Status: Former Tobacco Use tobacco type: cigarettes Quit Date: 08/27/74 Tobacco: How many years used: 10 Second Hand Exposure: Yes Smoking risk assessment performed?: Yes Alcohol Intake: former Substance use type: former substance user Household members: significant other Housing: apartment Communication Needs: None Do you need help understanding health information?: Often Pets and animals: Yes Pets and animals: dog(s) Sexually active: No Do you think of yourself as: straight/heterosexual Current gender identity: male What is your relationship status?: How often do you talk on the phone with friends or family?: once per week How often do you get together with friends or relatives?: never How often do you attend sabianism or mormon services?: decline to answer Do you belong to any clubs or organized social groups?: no Panel score (0-1 are the most socially isolated patients): 0 What type of physical activity do you participate in: none Frequency: does not exercise Olive/Cheondoism: None Special olive needs: No Seatbelt use: sometimes Helmet use: Yes Helmet use: sometimes Drive intox or ride w/intox feeder 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 Time Spent with Patient Time Spent with Patient: 45-69 minutes Time was spent: preparing to see the patient(eg.review tests), obtaining and/or reviewing separately otained hiistory, ordering medications,tests, procedures, referring, communicating with other health client care coordinator, indepentently interpreting results, counseling the patient and care coordination
[2024-01-04 15:21] VITALS: BP 128/84; PULSE 103; RESP 18; TEMP 37.3; O2SAT 93
--- NOTE | 2024-01-04 15:57 | PDOC.CMDIS ---
Date of service: 01/04/24 Time of Service: 15:57 LACE Index Scoring Tool Questions: Length of Stay (in days): 3 Was the patient admitted via the E.D.?: Yes Comorbidities: Metastatic Solid Tumor E.D. Visits: 1 Answers: Total Score: 12 Risk of Readmission: High Risk Care Management Discharge Plan Reason for Hospitalization: Pneumonia Discharge Plan: Agustin will be discharged home with no new services. He will follow up with his community providers and plan of care and transport with his partner. Patient/Family Education Needs: Review of discharge instructions, activity, limitations, follow up plan, discuss Ask Me Three [facility] Health Related Social Needs: No Data to Display
--- NOTE | 2024-01-17 12:33 | W.PM.PROGNOT ---
Date of Service Date of service: 01/02/24 Time of Service: 12:30 Assessment and Plan Assessment and plan (1) Pneumonia: Assessment and plan: Hypoxia has improved. Continue on IV azithromycin and cefepime with cultures pending. (2) Bacteremia: Status: Acute Assessment and plan: 12/31 GNC in blood cultures, continue cefepime and azithro until we get cultures. Clinically he is stable. (3) On deep vein thrombosis (DVT) prophylaxis: Status: Deleted Assessment and plan: On Eliquis for atrial fibrillation (4) Paroxysmal atrial fibrillation: Status: Acute Assessment and plan: On metoprolol Cr and Eliquis (5) GERD (gastroesophageal reflux disease): Status: Chronic Assessment and plan: Continue PPI (6) Essential hypertension: Status: Acute Assessment and plan: Continue home meds (7) Discharge planning issues: Status: Deleted Assessment and plan: d/c home on oral antibiotics when cultures back to guide therapy, especially with bacteremia Subjective Subjective Patient reports: no new complaints, tolerating a regular diet and voiding w/o difficulty; denies nausea, vomiting or fever Interval history since last seen: Still feels well with oxygen on. Minimal cough. Exam Narrative Exam Narrative: The patient is sitting in chair. oxygen via NC without acute distress Resp: Normal respiratory pattern, speaks in full sentences, unlabored breathing, clear lung bilaterally Cardio: regular rhythm, S1, S2, no murmur, GI: Abdomen is not distended, soft and non tender, bowel sounds are present Extremities: no cynosis or edema Objective Last Vital Signs Temp 37.3 C 01/04/24 15:21 Pulse 103 H 01/04/24 15:21 Resp 18 01/04/24 15:21 BP 128/84 01/04/24 15:21 Pulse Ox 93 01/04/24 15:21 Time Spent with Patient Time Spent with Patient: 25-34 minutes Time was spent: preparing to see the patient(eg.review tests), obtaining and/or reviewing separately otained hiistory, ordering medications,tests, procedures, referring, communicating with other health primary care nurse practitioner, indepentently interpreting results, counseling the patient and care coordination
== END 2024-01-04 15:39 | disposition home or self-care (01) | DRG 194 ==
LOC: ER 20:13 → ICU 21:21 → MS 01-02 08:39
PROVIDERS: General Practice; Nurse Practitioner Acute Care; Admitting Provider Family Medicine; Emergency Provider Physician Assistant; PCP Nurse Practitioner Family; Visit Provider Family Medicine
DX: J18.9 Pneumonia, unspecified organism (principal); C78.7 Secondary malignant neoplasm of liver and intrahepatic bile duct; R78.81 Bacteremia; I48.0 Paroxysmal atrial fibrillation; I10 Essential (primary) hypertension; K21.9 Gastro-esophageal reflux disease without esophagitis; E87.6 Hypokalemia; E83.42 Hypomagnesemia; Z66 Do not resuscitate; K57.30 Diverticulosis of large intestine without perforation or abscess without bleeding; K64.8 Other hemorrhoids; K64.4 Residual hemorrhoidal skin tags; R73.03 Prediabetes; K22.70 Barrett's esophagus without dysplasia; I65.23 Occlusion and stenosis of bilateral carotid arteries; I34.0 Nonrheumatic mitral (valve) insufficiency; K59.09 Other constipation; Z87.891 Personal history of nicotine dependence; J43.9 Emphysema, unspecified; D64.9 Anemia, unspecified; F41.9 Anxiety disorder, unspecified; J45.909 Unspecified asthma, uncomplicated; E78.5 Hyperlipidemia, unspecified; I25.10 Atherosclerotic heart disease of native coronary artery without angina pectoris; F43.10 Post-traumatic stress disorder, unspecified; I25.2 Old myocardial infarction; Z95.5 Presence of coronary angioplasty implant and graft; Z95.4 Presence of other heart-valve replacement; Z85.028 Personal history of other malignant neoplasm of stomach; Z90.3 Acquired absence of stomach [part of]; Z98.0 Intestinal bypass and anastomosis status; Z79.01 Long term (current) use of anticoagulants; Z79.899 Other long term (current) drug therapy; R09.02 Hypoxemia; D50.9 Iron deficiency anemia, unspecified; I44.7 Left bundle-branch block, unspecified; K44.9 Diaphragmatic hernia without obstruction or gangrene; B96.3 Hemophilus influenzae [H. influenzae] as the cause of diseases classified elsewhere
CPT/HCPCS: 00123; 36410; 36415; 51702; 71275; 80048; 80053; 82805; 83690; 84145; 85652; 87040; 87077; 87449; 87637; 93005; 94640; 96365; 96367; 96375; 99285; 81003; 83605; 83735; 83880; 84132; 84484; 85025; 86140; 93010; 99222; 99233; 99239; J0131; J0456; J0692; J0696; J1940; J3475; J3490; J7620

== ENCOUNTER 2024-04-13 19:32 | Inpatient (IN) | payer OTHER, SELFPAY ==
[2024-04-13] VITALS (41 sets, daily range): BP systolic 90–163; BP diastolic 59–150; PULSE 67–105; RESP 9–25; TEMP 36.4; O2SAT 86–100
--- NOTE | 2024-04-13 19:15 | RT.EKG_ITS ---
APPROVED REPORT Exam: Resting ECG Reason for Exam: chest pain Patient Location: E HR:78 bpm ECG Measurements Heart Rate 78 AXIS IA [id number] P [id number] QRSd 148 QRS 3 QT 448 T 67 QTc 512 Conclusion Atrial fibrillation, rate 78 LBBB No STEMI Compared to priors, RVR has resolved
--- NOTE | 2024-04-13 19:30 | DI.RAD_ITS ---
Exam(s) XR PORTABLE CHEST AP EXAM: XR PORTABLE CHEST AP CLINICAL HISTORY: chest pain SOB TECHNIQUE: 2D digital imaging was performed. COMPARISON: CT CT CHEST PE CTA from 01/01/2024 FINDINGS: LUNGS: Mildly increased densities at both lung bases, left greater than right may represent infiltrat es versus atelectasis. No pleural abnormality seen. HEART: Normal size. AORTA: Normal diameter. BONES: Unremarkable for age. Soft tissues: Unremarkable. IMPRESSION: Bibasilar infiltrates versus atelectasis. DATA REPOSITORY: RADIATION DOSE DELIVERED:
[2024-04-13 19:51] LABS: Abs Immature Grans 0.22 10^3/uL (0.0-0.06); Absolute Basophil Count 0.02 10^3/uL (0.0-0.2); Absolute Eosinophil Count 0.18 10^3/uL (0.0-0.7); Absolute Monocyte Count 0.33 10^3/uL (0.1-0.8); Absolute Neutrophil Count 7.39 10^3/uL (1.2-6.7); Basophils % 0.2 %; Eosinophils % 1.9 %; HCT 40.5 % (40.0-50.0); HGB 12.9 g/dL (13.5-17.5); Immature Grans % 2.4 %; Lymphocytes % 12.8 %; MCH 28.4 pg (27.0-33.0); MCHC 31.9 % (32.0-36.0); MCV 89 fL (80-95); Monocytes % 3.5 %; Neutrophils % 79.2 %; Platelet Count 159 10^3/uL (130-400); RBC 4.55 10^6/uL (4.36-5.78); RDW 13.5 % (11.8-14.1); RDW-SD 43.9 fL; WBC 9.34 10^3/uL (4.4-10.8)
[2024-04-13 20:05] LABS: INR 1.1 (0.9-1.1); PTT Activated 23.4 sec (23.6-32.8); Prothrombin Time 10.9 sec (9.1-11.1)
[2024-04-13 20:13] LABS: ALT 23 U/L (16-63); AST 22 U/L (15-37); Albumin 3.1 g/dL (3.4-5.0); Alkaline Phosphatase 102 U/L (46-116); Anion Gap 12.5 mmol/L (3-11); BUN 23 mg/dL (7-18); Bilirubin, Total 0.46 mg/dL (0.2-1.0); CO2 24.5 mmol/L (21.0-32.0); CREATININE 1.3 mg/dL (0.70-1.30); Chloride 104 mmol/L (98-107); Estimated GFR 58.01 (mL/min/1.73m2); Glucose 134 mg/dL (74-106); Magnesium 1.9 mg/dL (1.8-2.4); NT-proBNP 1746 pg/mL (<300); Potassium 3.9 mmol/L (3.5-5.1); Sodium 141 mmol/L (136-145); Total Protein 6.1 g/dL (6.4-8.2); Troponin I < 50 ng/L (< or =60)
[2024-04-13 20:29] LABS: Calcium 8.3 mg/dL (8.5-10.1)
--- NOTE | 2024-04-13 21:00 | DI.CT_ITS ---
Exam(s) CT CHEST PE CTA EXAM: CT CHEST PE CTA CLINICAL HISTORY: Shortness of breath, hypoxia. TECHNIQUE: Imaging Protocol: Axial CT angiography was performed with multi-slice acquisition and mu lti-planar reconstructions as well as axial, coronal and sagittal MIP reconstructions. CONTRAST MATERIAL: Intravenous: Omnipaque 350 Contrast volume:100 ml COMPARISON: CT CT CHEST PE CTA from 01/01/2024 FINDINGS: Pulmonary Arteries: No evidence of filling defect to suggest pulmonary emboli. Tracheobronchial tree: No mucous plugging. Mediastinum and Jessica: No dominant adenopathy or fluid collection. Pulmonary parenchyma: Bilateral infiltrates, denser in the lower lobes. Pleura: No effusion or pneumothorax. Heart: The heart is not dilated. Aorta: Thoracic aorta non-dilated. No dissection. Aortic valve prosthesis. Upper abdomen: No acute findings. Bones: Degenerative changes in the thoracic spine. Old right rib fracture. Tubes, Catheters, and Lines: None Soft tissues: Unremarkable. IMPRESSION: No evidence of pulmonary embolism. Bilateral pneumonia. RADIATION DOSE DELIVERED: Total DLP DATA REPOSITORY: All CT scans at this facility are submitted to the National Radiology Data Registry (NRDR) Dose Index Registry (DIR) with the [employer] ([employer]). RADIATION OPTIMIZATION: All CT scans at this facility use at least one of these dose optimization te chniques: automated exposure control; mA and/or kV adjustment per patient size (includes targeted exa ms where dose is matched to clinical indication); or iterative reconstruction.
[2024-04-13] MEDS: Normal Saline - Diluent 50 ML VIAL IJ (21:32)
[2024-04-13] MEDS: Omnipaque 350 MG/ML 100 ML BTL IJ (21:33)
[2024-04-13] MEDS: MORPHine 10 MG/ML VIAL 2 MG IVP (21:42)
--- NOTE | 2024-04-13 22:11 | DI.VRAD_ITS ---
PROCEDURE INFORMATION: Exam: XR Chest Exam date and time: 04/13/2024 8:16 PM Age: 74 years old Clinical indication: Other: Chest pain SOB TECHNIQUE: Imaging protocol: Radiologic exam of the chest. Views: 1 view. Total images: 3 COMPARISON: CT CHEST PE CTA 01/01/2024 5:30 PM FINDINGS: Lungs: Streaky opacities at both lung bases. Pleural spaces: No pleural effusion or pneumothorax. Heart/Mediastinum: Unremarkable. Vasculature: No vascular redistribution. Bones/joints: Unremarkable. IMPRESSION: Bibasilar discoid atelectasis or less likely infiltrates. Dictated and Authenticated by: Chuck Garcia MD. Ordering:NATHALIA Martinez MD
--- NOTE | 2024-04-13 22:41 | DI.VRAD_ITS ---
PROCEDURE INFORMATION: Exam: CTA Chest With Contrast Exam date and time: 04/13/2024 9:36 PM Age: 74 years old Clinical indication: Shortness of breath and other: Hypoxia TECHNIQUE: Imaging protocol: Computed tomographic angiography of the chest with contrast. Exam focused on the arteries. 3D rendering (Not supervised by radiologist): MIP and/or 3D reconstructed images were created by the technologist. Total images: 2567 Contrast material: OMNIPAQUE 350; Contrast volume: 100 ml; Contrast route: INTRAVENOUS (IV); COMPARISON: CT CHEST PE CTA 01/01/2024 5:30 PM FINDINGS: Pulmonary arteries: No filling defect in the pulmonary arterial tree. Aorta: No aortic aneurysm. No aortic dissection. Lungs: Bilateral multilobar patchy consolidation with ground-glass component, right greater than left. Pleural spaces: Trace right pleural effusion. Heart: Aortic valve replacement. Coronary arteries: Significant coronary calcification. Lymph nodes: No mediastinal, hilar or axillary adenopathy. Liver: Hepatic steatosis. Left hepatic surgical clips. Bones/joints: Old right 8th rib fracture. Thoracic degenerative disc disease. Soft tissues: Extrathoracic soft tissues are unremarkable. IMPRESSION: 1. Bilateral multilobar parenchymal disease likely infectious, possibly aspiration related, in etiology. 2. No PE. Dictated and Authenticated by: Chuck Garcia MD. Ordering:NATHALIA Martinez MD
--- NOTE | 2024-04-13 22:48 | ED.GENADUL_ITS ---
Discharge Plan Discharge Details Chief Complaint: Chest Pain Primary Care Provider: Drea Martines ED Provider: Juan Calvillo Home Meds and New Rx's Prescriptions: No Action albuterol sulfate [ProAir HFA] 90 mcg/actuation HFA aerosol inhaler 2 puff inhalation Q6H PRN (Reason: shortness of breath or wheezing) Qty: 8.5 3RF hydrocortisone acetate [Anusol-HC] 25 mg suppository 25 mg MO BID PRN (Reason: hemorrhoids) Qty: 24 1RF cyclobenzaprine 5 mg tablet 5 mg PO TID PRN (Reason: back pain) Qty: 14 0RF Rx Instructions: Take 1 tablet by mouth three times a day as needed for back pain melatonin 10 mg tablet 10 mg PO DAILY PRN alfuzosin 10 mg tablet extended release 24 hr 10 mg PO DAILY Qty: 90 3RF Rx Instructions: administer after the same meal each day amlodipine 10 mg tablet 10 mg PO DAILY Qty: 90 3RF Eliquis 5 mg tablet 5 mg PO BID Qty: 180 3RF bupropion HCl 150 mg tablet sustained-release 12 hr 150 mg PO QAM Qty: 90 3RF famotidine 20 mg tablet 20 mg PO BID Qty: 180 3RF furosemide 20 mg tablet 20 mg PO DAILY Qty: 90 3RF lisinopril 20 mg tablet 20 mg PO DAILY Qty: 90 3RF Patient Comments: pt. reports he no longer takes metoprolol succinate 50 mg tablet extended release 24 hr 50 mg PO DAILY Qty: 90 3RF pantoprazole [Protonix] 40 mg tablet,delayed release (DR/EC) 40 mg PO DAILY Qty: 90 12RF paroxetine HCl 20 mg tablet 20 mg PO DAILY Qty: 90 3RF rosuvastatin 20 mg tablet 20 mg PO DAILY Qty: 90 3RF ferrous sulfate 325 mg (65 mg iron) tablet 325 mg PO DAILY Qty: 90 1RF Rx Instructions: Take 1 tablet once a day with your vitamin c or a glass of orange juice sucralfate [Carafate] 1 gram tablet 1 g PO QACHS Qty: 120 12RF cefpodoxime 200 mg Tablet 400 mg PO BID Qty: 16 0RF Bio-K plus 50 billion cell capsule,delayed release(DR/EC) 1 cap PO DAILY Qty: 6 0RF HPI General Mode of arrival: EMS . Date/Time Provider Initiated Documentation: 04/13/24 19:35 . Limitations to Documentation: no limitations . Information obtained by: patient and RN notes reviewed . History of Present Illness 74 year old M presents to the emergency department with the chief complaint of Shortness of breath, chest pain, described as moderate and similar to prior episodes, Patient started experiencing this day(s) (1) and it has been constant. No relieving factors improve symptom(s), No exacerbating factors reported . Patient notes cough and fever/chills. Patient did receive the following treatments prior to arrival, other (Aspirin) Related Data Home Medications ?Medication ?Instructions ?Recorded ?Confirmed melatonin 10 mg tablet 10 mg PO DAILY PRN 12/20/22 04/13/24 albuterol sulfate 90 mcg/actuation 2 puff inhalation Q6H PRN 12/27/22 04/13/24 aerosol inhaler (ProAir HFA) shortness of breath or wheezing #8.5 grams cyclobenzaprine 5 mg tablet 5 mg PO TID PRN back pain #14 tabs 02/06/23 04/13/24 hydrocortisone acetate 25 mg 25 mg MO BID PRN hemorrhoids #24 ea 02/06/23 04/13/24 rectal suppository (Anusol-HC) alfuzosin 10 mg tablet,extended 10 mg PO DAILY #90 tabs 11/13/23 04/13/24 release 24 hr amlodipine 10 mg tablet 10 mg PO DAILY #90 tabs 11/13/23 04/13/24 apixaban 5 mg tablet (Eliquis) 5 mg PO BID #180 tabs 11/13/23 04/13/24 bupropion HCl 150 mg tablet,12 hr 150 mg PO QAM #90 tabs 11/13/23 04/13/24 sustained-release famotidine 20 mg tablet 20 mg PO BID #180 tabs 11/13/23 04/13/24 furosemide 20 mg tablet 20 mg PO DAILY #90 tabs 11/13/23 04/13/24 lisinopril 20 mg tablet 20 mg PO DAILY #90 tabs 11/13/23 04/13/24 metoprolol succinate 50 mg 50 mg PO DAILY #90 tabs 11/13/23 04/13/24 tablet,extended release 24 hr pantoprazole 40 mg tablet,delayed 40 mg PO DAILY #90 tabs 11/13/23 04/13/24 release (Protonix) paroxetine HCl 20 mg tablet 20 mg PO DAILY #90 tabs 11/13/23 04/13/24 rosuvastatin 20 mg tablet 20 mg PO DAILY #90 tabs 11/13/23 04/13/24 L. acidophilus,casei,rhamnosus 50 1 cap PO DAILY #6 caps 01/04/24 04/13/24 billion cell capsule,delayed release (Bio-K plus) cefpodoxime 200 mg tablet 400 mg (2 x 200 mg) PO BID #16 tabs 01/04/24 04/13/24 ferrous sulfate 325 mg (65 mg 325 mg PO DAILY #90 tabs 02/05/24 04/13/24 iron) tablet sucralfate 1 gram tablet (Carafate) 1 g PO QACHS #120 tabs 04/03/24 04/13/24 Previous Rx's ?Medication ?Instructions ?Recorded albuterol sulfate 90 mcg/actuation 2 puff inhalation Q6H PRN 12/27/22 aerosol inhaler (ProAir HFA) shortness of breath or wheezing #8.5 grams cyclobenzaprine 5 mg tablet 5 mg PO TID PRN back pain #14 tabs 02/06/23 hydrocortisone acetate 25 mg 25 mg MO BID PRN hemorrhoids #24 ea 02/06/23 rectal suppository (Anusol-HC) alfuzosin 10 mg tablet,extended 10 mg PO DAILY #90 tabs 11/13/23 release 24 hr amlodipine 10 mg tablet 10 mg PO DAILY #90 tabs 11/13/23 apixaban 5 mg tablet (Eliquis) 5 mg PO BID #180 tabs 11/13/23 bupropion HCl 150 mg tablet,12 hr 150 mg PO QAM #90 tabs 11/13/23 sustained-release famotidine 20 mg tablet 20 mg PO BID #180 tabs 11/13/23 furosemide 20 mg tablet 20 mg PO DAILY #90 tabs 11/13/23 lisinopril 20 mg tablet 20 mg PO DAILY #90 tabs 11/13/23 metoprolol succinate 50 mg 50 mg PO DAILY #90 tabs 11/13/23 tablet,extended release 24 hr pantoprazole 40 mg tablet,delayed 40 mg PO DAILY #90 tabs 11/13/23 release (Protonix) paroxetine HCl 20 mg tablet 20 mg PO DAILY #90 tabs 11/13/23 rosuvastatin 20 mg tablet 20 mg PO DAILY #90 tabs 11/13/23 L. acidophilus,casei,rhamnosus 50 1 cap PO DAILY #6 caps 01/04/24 billion cell capsule,delayed release (Bio-K plus) cefpodoxime 200 mg tablet 400 mg (2 x 200 mg) PO BID #16 tabs 01/04/24 ferrous sulfate 325 mg (65 mg 325 mg PO DAILY #90 tabs 02/05/24 iron) tablet sucralfate 1 gram tablet (Carafate) 1 g PO QACHS #120 tabs 04/03/24 Allergies Allergy/AdvReac Type Severity Reaction Status Date / Time fenofibrate Allergy Unknown unknown Verified 04/13/24 19:57 General Stated Complaint: Chest Pain ERENDIRA: 3 Review of Systems Constitutional Constitutional: Reports chills and Reports malaise Cardiovascular Cardiovascular: Reports chest pain and Reports dyspnea Respiratory Respiratory: Reports cough and Reports dyspnea Gastrointestinal Gastrointestinal: Reports nausea Exam Const General: cooperative and ill appearing acutely Orientation: alert, awake and oriented x3 HENMT Mouth: moist mucous membranes Resp Effort & Inspection: able to speak in complete sentences Auscultation: crackles bilaterally at the base and diminished lung sounds bilaterally in the lower lung beatty Cardio Rate: regular rate Rhythm: regular rhythm Heart Sounds: S1 normal, S2 normal and other (Decreased) Skin General skin exam: no rashes or lesions noted Neuro General: patient alert, patient awake, patient oriented x3, moves all extremities and no focal motor deficits Sensory Exam: no sensory deficits noted Course Vital Signs Vital signs: Vital Signs Respiratory Rate 16 04/13/24 19:37 Temperature 36.4 C L 04/13/24 19:47 Temperature Source Temporal Artery Scan 04/13/24 19:47 Pulse 72 04/13/24 21:20 Pulse 80 04/13/24 22:00 Respiratory Rate 11 L 04/13/24 22:00 Respiratory Effort Normal, Non-Labored 04/13/24 19:56 Respiratory Depth Normal 04/13/24 19:53 Respiratory Pattern Normal 04/13/24 19:53 Blood Pressure 108/65 04/13/24 21:20 Blood Pressure Mean 76 04/13/24 21:20 Blood Pressure Position Supine 04/13/24 19:47 Pulse Oximetry 94 04/13/24 22:00 Oxygen Delivery Method Room Air 04/13/24 19:47 Oxygen Flow Rate 0 04/13/24 19:47 Pain Level 7 04/13/24 19:53 Comment 92% on 12 LPM NRB 04/13/24 19:47 Lab/Test Results Lab/Test Results: 04/13/24 22:43 Blood Blood Culture - Pending 04/13/24 22:43 Blood Blood Culture - Pending Laboratory Tests Range/Units 04/13/24 19:35 WBC (4.4-10.8) 10^3/uL 9.34 RBC (4.36-5.78) 10^6/uL 4.55 Hgb (13.5-17.5) g/dL 12.9 L Hct (40.0-50.0) % 40.5 MCV (80-95) fL 89 MCH (27.0-33.0) pg 28.4 MCHC (32.0-36.0) % 31.9 L RDW (11.8-14.1) % 13.5 Plt Count (130-400) 10^3/uL 159 MPV (8.0-11.0) fL 11.0 Immature Gran % % 2.4 Neutrophils % % 79.2 Lymphocytes % % 12.8 Monocytes % % 3.5 Eosinophils % % 1.9 Basophils % % 0.2 Nucleated RBC % (0.0-0.3) % 0.0 Absolute Neutrophils (1.2-6.7) 10^3/uL 7.39 H Absolute Lymphocytes (1.2-3.4) 10^3/uL 1.20 Absolute Monocytes (0.1-0.8) 10^3/uL 0.33 Absolute Eosinophils (0.0-0.7) 10^3/uL 0.18 Absolute Basophils (0.0-0.2) 10^3/uL 0.02 PT (9.1-11.1) sec 10.9 INR (0.9-1.1) 1.1 APTT (23.6-32.8) sec 23.4 L Sodium (136-145) mmol/L 141 Potassium (3.5-5.1) mmol/L 3.9 Chloride (98-107) mmol/L 104 Carbon Dioxide (21.0-32.0) mmol/L 24.5 Anion Gap (3-11) mmol/L 12.5 H BUN (7-18) mg/dL 23 H Creatinine (0.70-1.30) mg/dL 1.3 Est GFR (CKD-EPI 2020) (mL/min/1.73m2) 58.01 Glucose (74-106) mg/dL 134 H Calcium (8.5-10.1) mg/dL 8.3 L Magnesium (1.8-2.4) mg/dL 1.9 Total Bilirubin (0.2-1.0) mg/dL 0.46 AST (15-37) U/L 22 ALT (16-63) U/L 23 Alkaline Phosphatase (46-116) U/L 102 Troponin I (< or =60) ng/L < 50 NT-Pro-B Natriuret Pep (<300) pg/mL 1746 H Total Protein (6.4-8.2) g/dL 6.1 L Albumin (3.4-5.0) g/dL 3.1 L Medical Decision Making Patient presenting to the emergency department via EMS for chief complaint of chest pain and shortness of breath. Patient states he was sitting in his chair at rest and states that he fell asleep and then 1 hour ago he woke up with significant chest pressure and discomfort. He does report that he has a chronic cough but has somewhat noticed an increase of coughing over the last 3 days and had some chills and malaise. Patient has significant past medical history of A-fib with anticoagulation, liver cancer, stomach cancer, aortic stenosis with pig valve replacement, gastric bypass, and episode a couple months ago of hypoxic respiratory distress which she states is some similarity of the shortness of breath today. EMS states that he was in the low 80s on room air and that he needed 10 L nonrebreather to have oxygen sat above 90%. Physical exam shows decreased heart sounds but present, decreased lung sounds in the bas es with slight crackles, vital sign showing some hypotension but no tachycardia, no tachypnea, patient is hypoxic without oxygen, and patient is afebrile. Please see physician interpretation for full interpretation of EKG but upon my review patient is in A-fib, does have left bundle branch block but rate is controlled. Otherwise nondiagnostic EKG will continue to monitor. Bedside POCUS exam was performed with attending MD. Please see note for discussion but no obvious pericardial effusion or tamponade noted Reviewed patient's labs and patient has a slight anemia but review of previous labs shows stable, slight elevation of neutrophils at 7.39 and neutrophil percentage at 79 otherwise nondiagnostic CBC, patient does have anion gap of 12.5, BUN of 23, glucose slightly elevated at 134 and calcium of 8.3 initial troponin is negative nondetected, BNP is elevated at 1746 but of note previous 1 on file was greater than 3000. Plain film x-ray does show discoid atelectasis and radiologist and less likely infiltrates. Given patient's history of A-fib with hypoxia will perform CT imaging of the chest. Review of CT imaging shows concerning findings of bilateral multilobular parenchymal disease with likely infectious appearance and radiologist saying possible aspiration. Given this we will perform blood cultures and start patient on antibiotics. COVID swab was also ordered and reviewed as negative. Given patient's significant hypoxia on arrival requiring oxygen which likely has been decreased since being here but still requiring oxygen via nasal cannula at 3 to 4 L, CT findings concerning for pneumonia which may be aspiration or community-acquired, will discuss case with hospitalist for admission. Discussed case with Dr. Cheema who accepted patient for admission and bridge orders were placed. Did confirm with patient that he request to be DNR/DNI for CODE STATUS. Imaging Data Radiologic Study: Imaging: X-Ray Radiologist's impression: Bibasilar discoid atelectasis or less likely infiltrates Radiologic Study #2: Imaging: CT Scan Radiologist's impression: Exam(s) PROCEDURE INFORMATION: Exam: CTA Chest With Contrast Exam date and time: 04/13/2024 9:36 PM Age: 74 years old Clinical indication: Shortness of breath and other: Hypoxia TECHNIQUE: Imaging protocol: Computed tomographic angiography of the chest with contrast. Exam focused on the arteries. 3D rendering (Not supervised by radiologist): MIP and/or 3D reconstructed images were created by the technologist. Total images: 2567 Contrast material: OMNIPAQUE 350; Contrast volume: 100 ml; Contrast route: INTRAVENOUS (IV); COMPARISON: CT CHEST PE CTA 01/01/2024 5:30 PM FINDINGS: Pulmonary arteries: No filling defect in the pulmonary arterial tree. Aorta: No aortic aneurysm. No aortic dissection. Lungs: Bilateral multilobar patchy consolidation with ground-glass component, right greater than left. Pleural spaces: Trace right pleural effusion. Heart: Aortic valve replacement. Coronary arteries: Significant coronary calcification. Lymph nodes: No mediastinal, hilar or axillary adenopathy. Liver: Hepatic steatosis. Left hepatic surgical clips. Bones/joints: Old right 8th rib fracture. Thoracic degenerative disc disease. Soft tissues: Extrathoracic soft tissues are unremarkable. IMPRESSION: 1. Bilateral multilobar parenchymal disease likely infectious, possibly aspiration related, in etiology. 2. No PE. Dictated and Authenticated by: Chuck Garcia MD. Ordering:NATHALIA Martinez MD Lab Data Lab results reviewed: Yes I reviewed the patient's lab results. 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 requests just tap his foot before waking him up, and call his name before doing anything Aortic stenosis w TAVR in [place] 05/31/22 RH Myocardial infarct, old w stent placed in [place] 2001 History of gastrectomy Surgical History History of esophagogastroduodenoscopy (EGD) (~04/2023) biopsies taken History of colonoscopy (~11/2023) Hx of tonsillectomy History of appendectomy H/O left knee surgery History of Titi-en-Y gastric bypass H/O rotator cuff surgery (~01/19/09) Right Hx of heart artery stent x3 in [place] 2001 Family History Mother , 65 Cancer Heart disease of NE Hypertension Father , 43 Heart disease NE at age 43 Diabetes Hypertension Son , 5 Months Cancer SIDS Maternal Grandfather Heart disease Hyperlipidemia Maternal Grandmother Heart disease Hyperlipidemia Paternal Grandmother No problems noted. Social History Smoking/Tobacco Use Status: Former Tobacco Use tobacco type: cigarettes Quit Date: 08/27/74 Tobacco: How many years used: 10 Second Hand Exposure: Yes Smoking risk assessment performed?: Yes Alcohol Intake: former Drug use: Current Sobriety Substance use type: former substance user Household members: significant other Housing: apartment Communication Needs: None Do you need help understanding health information?: Often Pets and animals: Yes Pets and animals: dog(s) Sexually active: No Do you think of yourself as: straight/heterosexual Current gender identity: male What is your relationship status?: How often do you talk on the phone with friends or family?: once per week How often do you get together with friends or relatives?: never How often do you attend anglican or christianity services?: decline to answer Do you belong to any clubs or organized social groups?: no Panel score (0-1 are the most socially isolated patients): 0 What type of physical activity do you participate in: none Frequency: does not exercise Olive/Mandaen: None Special olive needs: No Seatbelt use: sometimes Helmet use: Yes Helmet use: sometimes Drive intox or ride w/intox boat 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
[2024-04-13 23:03] LABS: Troponin I < 50 ng/L (< or =60)
[2024-04-13 23:15] LABS: COVID-19 PCR Negative (Negative); Influenza A PCR Negative (Negative); Influenza B PCR Negative (Negative); RSV PCR Negative (Negative)
[2024-04-13 23:17] LABS: Source Nasopharynx
[2024-04-13] MEDS: cefTRIAXone 1 GM/50 ML BAG IVPB (23:31)
[2024-04-14] VITALS (19 sets, daily range): BP systolic 97–122; BP diastolic 62–80; PULSE 78–99; RESP 2–23; TEMP 36.4–37.5; O2SAT 93–98
[2024-04-14] MEDS: AZITHROMYCIN 500 MG in Normal Saline 250 ML 250 MG IVPB (00:03)
--- NOTE | 2024-04-14 00:13 | HPE_ITS ---
Date of service: 04/13/24 Time of Service: 23:50 Assessment and Plan Assessment and plan (1) Pneumonia: Start date: 04/13/24 Status: Acute Assessment and plan: This is a 74-year-old gentleman presenting to the ED with cough and increased oxygen needs not being on oxygen at home but having chronic cough with use of rescue inhaler. He was found to have multilobar pneumonia with possible aspiration by CTA of the chest and was initiated on Rocephin with micro switched to Zosyn for better coverage of aspiration. He does not have problems swallowing or choking but stated yes he could be aspirating having a chronic cough. He will be following up with imaging as needed with weaning off oxygen as tolerated. Eventually could be switched to Augmentin for pain. Treatment if he improves. Consider speech evaluation for swallow. Check VBG. Gentle IV hydration watching closely for fluid overload patient having some cardiac history. Is a DNR/DNI. Qualifiers: Aspiration pneumonia type: unspecified Laterality: bilateral Lung location: unspecified part of lung Pneumonia type: aspiration pneumonia Q ualified Code(s): J69.0 - Pneumonitis due to inhalation of food and vomit (2) Acute hypoxic respiratory failure: Start date: 04/13/24 Status: Acute Assessment and plan: Wean off oxygen as tolerated. Continue treatment of pneumonia. Patient did not have PE. He is chronically on Eliquis with paroxysmal atrial fibrillation. (3) Paroxysmal atrial fibrillation: Status: Chronic Assessment and plan: Continue outpatient medical therapy. Cardiac monitoring. History of Present Illness History of Present Illness Chief Complaint: Chronic cough with shortness of breath Narrative: This is a 74-year-old male patient who lives with his who is on oxygen has had a chronic cough slightly worsened recently and an increase shortness of breath prompting emergency room visit prompted by family that EMS transfer. He had no significant chest pain and had a negative evaluation for cardiac ischemia with a history of hypertension and mitral valve replacement as well as left total branch block. He is on anticoagulation with a history of PAF. In the ED he was found to have a negative CTA for PE but positive for multilobar pneumonia with question of aspiration pneumonia. Patient does have a history of stomach cancer with liver metastases which he states has cleared. In the ED he did require up to 10 L/min of O2 via mask which was weaned as he came to the floor to nasal cannula. He was on decreased oxygen needs on the floor most of the requirements. He was speaking comfortably during my interview without cough. He denies any other complaints acutely and is jovial today to minimize his medical problems. He does use inhalers at home but this is not increased in usage and he states that his cough has produced some sputum which is new. He denies any fever or chills. He has had no peripheral edema or increased weight. His echocardiogram in late 2022. Stable with preserved left ventricular ejection fraction and stable valve replacement. His BNP was slightly elevated but not as high as the past when measured in December 2023. He did have a slightly elevated calcium and high anion gap with creatinine slightly elevated with 1 L of normal saline to be given overnight while observed. He did not get a urinalysis which will be collected as available. He is a DNR/DNI. Review of Systems Narrative: 13 point review of systems otherwise unrevealing or stable. 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 repeat in 2025 Microcytic anemia (Acute) Gastric cardia ulcer (Acute) Hiatal hernia with GERD (Acute) Hx of care home use of blood thinners (Acute) Diarrhea (Acute) Paroxysmal atrial fibrillation (Chronic) new onset 10/22 w TAVR RH LBBB (left bundle branch block) (Acute) new 10/22 w TAVR RH GERD (gastroesophageal reflux disease) (Chronic) Impotence of organic origin (Acute) Anemia (Chronic) Heartburn (Acute) Disorder of skull (Acute) Anxiety (Chronic) Asthma (Chronic) Hyperlipidemia (Acute) Coronary arteriosclerosis (Acute) Essential hypertension (Acute) Medical History Sepsis Acute hypoxemic respiratory failure Pneumonia Esophageal candidiasis Liver cancer Stomach cancer PTSD (post-traumatic stress disorder) Pt. requests just tap his foot before waking him up, and call his name before doing anything Aortic stenosis w TAVR in [place] 05/31/22 RH Myocardial infarct, old w stent placed in [place] 2001 History of gastrectomy Surgical History History of esophagogastroduodenoscopy (EGD) (~04/2023) biopsies taken History of colonoscopy (~11/2023) Hx of tonsillectomy History of appendectomy H/O left knee surgery History of Titi-en-Y gastric bypass H/O rotator cuff surgery (~01/19/09) Right Hx of heart artery stent x3 in [place] 2001 Family History Mother , 65 Cancer Heart disease of ID Hypertension Father , 43 Heart disease ID at age 43 Diabetes Hypertension Son , 5 Months Cancer SIDS Maternal Grandfather Heart disease Hyperlipidemia Maternal Grandmother Heart disease Hyperlipidemia Paternal Grandmother No problems noted. Social History Smoking/Tobacco Use Status: Former Tobacco Use tobacco type: cigarettes Quit Date: 08/27/74 Tobacco: How many years used: 10 Second Hand Exposure: Yes Smoking risk assessment performed?: Yes Alcohol Intake: former Drug use: Current Sobriety Substance use type: former substance user Household members: significant other Housing: other Communication Needs: None Do you need help understanding health information?: Often Pets and animals: Yes Pets and animals: dog(s) Sexually active: No Do you think of yourself as: straight/heterosexual Current gender identity: male What is your relationship status?: How often do you talk on the phone with friends or family?: once per week How often do you get together with friends or relatives?: never How often do you attend voodoo or denominational services?: decline to answer Do you belong to any clubs or organized social groups?: no Panel score (0-1 are the most socially isolated patients): 0 What type of physical activity do you participate in: none Frequency: does not exercise Olive/Voodoo: None Special olive needs: No Seatbelt use: sometimes Helmet use: Yes Helmet use: sometimes Drive intox or ride w/intox customer service 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 Meds Allergies and Home Medications Allergies Allergy/AdvReac Type Severity Reaction Status Date / Time fenofibrate Allergy Unknown unknown Verified 04/13/24 19:57 Home Medications ?Medication ?Instructions ?Recorded ?Confirmed ?Type melatonin 10 mg tablet 10 mg PO DAILY PRN 12/20/22 04/13/24 History albuterol sulfate 90 mcg/actuation 2 puff inhalation Q6H PRN 12/27/22 04/13/24 Rx aerosol inhaler (ProAir HFA) shortness of breath or wheezing #8.5 grams cyclobenzaprine 5 mg tablet 5 mg PO TID PRN back pain #14 tabs 02/06/23 04/13/24 Rx hydrocortisone acetate 25 mg 25 mg MD BID PRN hemorrhoids #24 ea 02/06/23 04/13/24 Rx rectal suppository (Anusol-HC) alfuzosin 10 mg tablet,extended 10 mg PO DAILY #90 tabs 11/13/23 04/13/24 Rx release 24 hr amlodipine 10 mg tablet 10 mg PO DAILY #90 tabs 11/13/23 04/13/24 Rx apixaban 5 mg tablet (Eliquis) 5 mg PO BID #180 tabs 11/13/23 04/13/24 Rx bupropion HCl 150 mg tablet,12 hr 150 mg PO QAM #90 tabs 11/13/23 04/13/24 Rx sustained-release famotidine 20 mg tablet 20 mg PO BID #180 tabs 11/13/23 04/13/24 Rx furosemide 20 mg tablet 20 mg PO DAILY #90 tabs 11/13/23 04/13/24 Rx lisinopril 20 mg tablet 20 mg PO DAILY #90 tabs 11/13/23 04/13/24 Rx metoprolol succinate 50 mg 50 mg PO DAILY #90 tabs 11/13/23 04/13/24 Rx tablet,extended release 24 hr pantoprazole 40 mg tablet,delayed 40 mg PO DAILY #90 tabs 11/13/23 04/13/24 Rx release (Protonix) paroxetine HCl 20 mg tablet 20 mg PO DAILY #90 tabs 11/13/23 04/13/24 Rx rosuvastatin 20 mg tablet 20 mg PO DAILY #90 tabs 11/13/23 04/13/24 Rx L. acidophilus,casei,rhamnosus 50 1 cap PO DAILY #6 caps 01/04/24 04/13/24 Rx billion cell capsule,delayed release (Bio-K plus) cefpodoxime 200 mg tablet 400 mg (2 x 200 mg) PO BID #16 tabs 01/04/24 04/13/24 Rx ferrous sulfate 325 mg (65 mg 325 mg PO DAILY #90 tabs 02/05/24 04/13/24 Rx iron) tablet sucralfate 1 gram tablet (Carafate) 1 g PO QACHS #120 tabs 04/03/24 04/13/24 Rx Exam Narrative Exam Narrative: General: Patient appears slightly older than stated age, moderately obese, alert and oriented x 3 and in no acute distress. HEENT: Normocephalic, eyes with pupils equal and reactive to light symmetrically, extraocular move intact and sclera anicteric. Oropharynx with moist Koza and fair dentition. Neck: Supple without JVD. Back: Slightly kyphotic without CVA tenderness. Lungs: Decreased aeration of the right base compared to left with increased rhonchi diffusely and occasional coarse crackle right lower lung field. Left lower lung field appears more clear. Bronchovesicular breath sounds diffusely. No expiratory wheeze. Fair aeration except for right base. Heart: Regular rate and rhythm with systolic murmur, no gallops or rubs. Abdomen: Obese contour, soft nontender palpation without palpable hepatosplenomegaly. No focalizing tenderness or guarding and no rebound. Bowel sounds positive all quadrants. Genitalia/rectal: Exam deferred. Extremities: Clubbing or cyanosis. Nonpitting edema both lower extremities. Good cap refill. Neuro: Cranial nerves II through XII gross intact, no focalizing motor deficits. No tremor. Psych: Slightly euphoric affect, normal mood. No abnormal thought processes. Remote and recent memory intact. Results Imaging Imaging Studies: Exam: XR Chest Exam date and time: 04/13/2024 8:16 PM Age: 74 years old Clinical indication: Other: Chest pain SOB TECHNIQUE: Imaging protocol: Radiologic exam of the chest. Views: 1 view. Total images: 3 COMPARISON: CT CHEST PE CTA 01/01/2024 5:30 PM FINDINGS: Lungs: Streaky opacities at both lung bases. Pleural spaces: No pleural effusion or pneumothorax. Heart/Mediastinum: Unremarkable. Vasculature: No vascular redistribution. Bones/joints: Unremarkable. IMPRESSION: Bibasilar discoid atelectasis or less likely infiltrates. Exam: CTA Chest With Contrast Exam date and time: 04/13/2024 9:36 PM Age: 74 years old Clinical indication: Shortness of breath and other: Hypoxia TECHNIQUE: Imaging protocol: Computed tomographic angiography of the chest with contrast. Exam focused on the arteries. 3D rendering (Not supervised by radiologist): MIP and/or 3D reconstructed images were created by the technologist. Total images: 2567 Contrast material: OMNIPAQUE 350; Contrast volume: 100 ml; Contrast route: INTRAVENOUS (IV); COMPARISON: CT CHEST PE CTA 01/01/2024 5:30 PM FINDINGS: Pulmonary arteries: No filling defect in the pulmonary arterial tree. Aorta: No aortic aneurysm. No aortic dissection. Lungs: Bilateral multilobar patchy consolidation with ground-glass component, right greater than left. Pleural spaces: Trace right pleural effusion. Heart: Aortic valve replacement. Coronary arteries: Significant coronary calcification. Lymph nodes: No mediastinal, hilar or axillary adenopathy. Liver: Hepatic steatosis. Left hepatic surgical clips. Bones/joints: Old right 8th rib fracture. Thoracic degenerative disc disease. Soft tissues: Extrathoracic soft tissues are unremarkable. IMPRESSION: 1. Bilateral multilobar parenchymal disease likely infectious, possibly aspiration related, in etiology. 2. No PE. Date of Exam: 06/28/23 EXAM: Comprehensive 2D, Doppler, and color-flow Echocardiogram Patient Location: Out-Patient Covered Button Maker: Paige Prescott RDCS (AE) Indications: Status post TAVR, HTN, Atrial Fibrillation, Aortic stenosis Other Information Study Quality: Fair. Technically limited study due to body habitus. Conclusion Normal left ventricular wall thickness and chamber size. Ejection fraction is 55%. Wall motion is normal Normal right ventricular size and systolic function Both atria are moderately dilated There is a bioprosthetic aortic valve. Mean gradient is 8 mmHg . there is mild aortic regurgitation which appears paravalvular Mitral annular calcification, moderate mitral regurgitation Estimated right ventricular systolic pressure is 24 mmHg Labs 04/13/24 19:35 04/13/24 19:35 Labs: Laboratory Results - last 24 hr 04/13/24 04/13/24 04/13/24 19:35 22:32 22:35 WBC 9.34 RBC 4.55 Hgb 12.9 L Hct 40.5 MCV 89 MCH 28.4 MCHC 31.9 L RDW 13.5 Plt Count 159 MPV 11.0 Immature Gran % 2.4 Neutrophils % 79.2 Lymphocytes % 12.8 Monocytes % 3.5 Eosinophils % 1.9 Basophils % 0.2 Nucleated RBC % 0.0 Absolute Neutrophils 7.39 H Absolute Lymphocytes 1.20 Absolute Monocytes 0.33 Absolute Eosinophils 0.18 Absolute Basophils 0.02 PT 10.9 INR 1.1 APTT 23.4 L Sodium 141 Potassium 3.9 Chloride 104 Carbon Dioxide 24.5 Anion Gap 12.5 H BUN 23 H Creatinine 1.3 Est GFR (CKD-EPI 2020) 58.01 Glucose 134 H Calcium 8.3 L Magnesium 1.9 Total Bilirubin 0.46 AST 22 ALT 23 Alkaline Phosphatase 102 Troponin I < 50 < 50 NT-Pro-B Natriuret Pep 1746 H Total Protein 6.1 L Albumin 3.1 L COVID-19 Source Nasopharynx SARS-CoV-2 (PCR) Negative Influenza Type A (PCR) Negative Influenza Type B (PCR) Negative RSV (PCR) Negative Last Vital Signs Temp 36.4 C L 04/13/24 19:47 Pulse 85 04/13/24 23:40 Resp 23 04/13/24 23:50 BP 126/88 04/13/24 23:40 Pulse Ox 93 04/13/24 23:41 Time Spent Time spent with Patient: >75 minutes Time was spent: preparing to see the patient(eg.review tests), obtaining and/or reviewing separately otained hiistory, ordering medications,tests, procedures, indepentently interpreting results, counseling the patient and care coordination
--- NOTE | 2024-04-14 00:41 | W.PC.ACHO ---
Registration Status: Primary Language: Preferred Language: ED Information & Data Chief Complaint Chest Pain 04/13/24 23:00 Triage Note chest pressure started an 04/13/24 19:47 hour before calling 911, also c/o nausea and sob, ems iv 18g l-ac and 324 mg ASA, o2 10 lpm nrb Medical / Surgical History (Last Reviewed 04/14/24 @ 00:19 by Mehran Cheema) Sepsis Acute hypoxemic respiratory failure Pneumonia Esophageal candidiasis Liver cancer Stomach cancer PTSD (post-traumatic stress disorder) Aortic stenosis Myocardial infarct, old History of gastrectomy (Last Reviewed 04/14/24 @ 00:19 by Mehran Cheema) History of esophagogastroduodenoscopy (EGD) (~04/2023) History of colonoscopy (~11/2023) Hx of tonsillectomy History of appendectomy H/O left knee surgery History of Titi-en-Y gastric bypass H/O rotator cuff surgery (~01/19/09) Hx of heart artery stent Most Recent Vital Signs Temperature 36.4 C L 04/13/24 19:47 Temperature Source Temporal Artery Scan 04/13/24 19:47 Pulse 96 H 04/14/24 00:21 Pulse 94 H 04/14/24 00:30 Respiratory Rate 17 04/14/24 00:30 Respiratory Effort Normal, Non-Labored 04/13/24 19:56 Respiratory Depth Normal 04/13/24 19:53 Respiratory Pattern Normal 04/13/24 19:53 Blood Pressure 113/73 04/14/24 00:21 Blood Pressure Mean 87 04/14/24 00:21 Blood Pressure Position Supine 04/13/24 19:47 Pulse Oximetry 94 04/14/24 00:30 Oxygen Delivery Method Room Air 04/13/24 19:47 Oxygen Flow Rate 0 04/13/24 19:47 Pain Level 7 04/13/24 19:53 Comment 92% on 12 LPM NRB 04/13/24 19:47 Allergies fenofibrate Allergy (Unknown, Verified 04/13/24 19:57) unknown Suicidal ideation Precautions Isolation Standard precaution 04/13/24 19:56 Active Medications Generic Name Dose Route Start Last Admin Trade Name Freq PRN Reason Stop Dose Admin Iohexol 100 ml 04/13/24 21:45 04/13/24 21:33 Omnipaque 350 Mg/Ml 100 Ml Btl IJ 05/13/24 23:59 100 ml DIRECTED MANPREET Administration IV IV Catheter Type [Left Peripheral IV Antecubital] IV Catheter Gauge [Left 18 Antecubital] Diet Orders Category Date Time Status Heart Healthy Eating [DIET] Nutrition 04/14/24 Breakfast Active Diagnostics 04/14/24 04/14/24 04/13/24 Range/Units 05:35 00:11 22:35 WBC Pending (4.4-10.8) 10^3/uL RBC Pending (4.36-5.78) 10^6/uL Hgb Pending (13.5-17.5) g/dL Hct Pending (40.0-50.0) % MCV Pending (80-95) fL MCH Pending (27.0-33.0) pg MCHC Pending (32.0-36.0) % RDW Pending (11.8-14.1) % Plt Count Pending (130-400) 10^3/uL MPV Pending (8.0-11.0) fL Immature Gran % % Neutrophils % % Lymphocytes % % Monocytes % % Eosinophils % % Basophils % % Nucleated RBC % (0.0-0.3) % Absolute Neutrophils (1.2-6.7) 10^3/uL Absolute Lymphocytes (1.2-3.4) 10^3/uL Absolute Monocytes (0.1-0.8) 10^3/uL Absolute Eosinophils (0.0-0.7) 10^3/uL Absolute Basophils (0.0-0.2) 10^3/uL PT (9.1-11.1) sec INR (0.9-1.1) APTT (23.6-32.8) sec Sodium Pending (136-145) mmol/L Potassium Pending (3.5-5.1) mmol/L Chloride Pending (98-107) mmol/L Carbon Dioxide Pending (21.0-32.0) mmol/L Anion Gap Pending (3-11) mmol/L BUN Pending (7-18) mg/dL Creatinine Pending (0.70-1.30) mg/dL Est GFR (CKD-EPI 2020) Pending (mL/min/1.73m2) Glucose Pending (74-106) mg/dL Calcium Pending (8.5-10.1) mg/dL Magnesium Pending (1.8-2.4) mg/dL Total Bilirubin Pending (0.2-1.0) mg/dL AST Pending (15-37) U/L ALT Pending (16-63) U/L Alkaline Phosphatase Pending (46-116) U/L Troponin I < 50 (< or =60) ng/L NT-Pro-B Natriuret Pep (<300) pg/mL Total Protein Pending (6.4-8.2) g/dL Albumin Pending (3.4-5.0) g/dL TSH Pending COVID-19 Source SARS-CoV-2 (PCR) (Negative) Influenza Type A (PCR) (Negative) Influenza Type B (PCR) (Negative) RSV (PCR) (Negative) 04/13/24 04/13/24 Range/Units 22:32 19:35 WBC 9.34 (4.4-10.8) 10^3/uL RBC 4.55 (4.36-5.78) 10^6/uL Hgb 12.9 L (13.5-17.5) g/dL Hct 40.5 (40.0-50.0) % MCV 89 (80-95) fL MCH 28.4 (27.0-33.0) pg MCHC 31.9 L (32.0-36.0) % RDW 13.5 (11.8-14.1) % Plt Count 159 (130-400) 10^3/uL MPV 11.0 (8.0-11.0) fL Immature Gran % 2.4 % Neutrophils % 79.2 % Lymphocytes % 12.8 % Monocytes % 3.5 % Eosinophils % 1.9 % Basophils % 0.2 % Nucleated RBC % 0.0 (0.0-0.3) % Absolute Neutrophils 7.39 H (1.2-6.7) 10^3/uL Absolute Lymphocytes 1.20 (1.2-3.4) 10^3/uL Absolute Monocytes 0.33 (0.1-0.8) 10^3/uL Absolute Eosinophils 0.18 (0.0-0.7) 10^3/uL Absolute Basophils 0.02 (0.0-0.2) 10^3/uL PT 10.9 (9.1-11.1) sec INR 1.1 (0.9-1.1) APTT 23.4 L (23.6-32.8) sec Sodium 141 (136-145) mmol/L Potassium 3.9 (3.5-5.1) mmol/L Chloride 104 (98-107) mmol/L Carbon Dioxide 24.5 (21.0-32.0) mmol/L Anion Gap 12.5 H (3-11) mmol/L BUN 23 H (7-18) mg/dL Creatinine 1.3 (0.70-1.30) mg/dL Est GFR (CKD-EPI 2020) 58.01 (mL/min/1.73m2) Glucose 134 H (74-106) mg/dL Calcium 8.3 L (8.5-10.1) mg/dL Magnesium 1.9 (1.8-2.4) mg/dL Total Bilirubin 0.46 (0.2-1.0) mg/dL AST 22 (15-37) U/L ALT 23 (16-63) U/L Alkaline Phosphatase 102 (46-116) U/L Troponin I < 50 (< or =60) ng/L NT-Pro-B Natriuret Pep 1746 H (<300) pg/mL Total Protein 6.1 L (6.4-8.2) g/dL Albumin 3.1 L (3.4-5.0) g/dL TSH COVID-19 Source Nasopharynx SARS-CoV-2 (PCR) Negative (Negative) Influenza Type A (PCR) Negative (Negative) Influenza Type B (PCR) Negative (Negative) RSV (PCR) Negative (Negative) 04/13/24 23:12 Blood Culture - Pending Blood 04/13/24 23:03 Blood Culture - Pending Blood Intake and Output - 24 Hour Total 04/13/24 19:26 thru 04/14/24 00:02 Intake Total 50 Balance 50 Weight 89.811 kg Intake: IV 50 Falls Risk Assessment History of Falls No History 04/13/24 19:55 Contributing Factors No Factors 04/13/24 19:55 Ambulatory Aids Independent 04/13/24 19:55 Tubes/Lines None 04/13/24 19:55 Gait Evaluation No gait disturbance 04/13/24 19:55 Cognition No cognitive impairment 04/13/24 19:55 Fall Total Score 0 04/13/24 19:55 Level of Risk Standard/Low Risk 04/13/24 19:55 Problems (Last Reviewed 04/14/24 @ 00:19 by Mehran Cheema) Acute hypoxic respiratory failure (Acute) Pneumonia (Acute) Paroxysmal atrial fibrillation (Chronic) v v v v v v v v v Sending and/or Receiving Nurses: Please use comment section below to note any information pertinent to the patient hand-off not included above. Information / Comments: No further Questions. Report received from: Karthik Garcia
[2024-04-14] MEDS: Normal Saline 1,000 ML 125 ML IV (01:35)
[2024-04-14] MEDS: Albuterol/Ipratropium 3 ML UPD VIAL UPD ×2 (02:00→07:32)
--- NOTE | 2024-04-14 02:04 | RESPIRATORY ---
Pt. states he uses O2 2.5L/min at baseline PRN/exertion. DME is [employer].
[2024-04-14] MEDS: PIPERACILLIN/TAZO 3.375 GM in Normal Saline 50 ML IVPB ×2 (02:35→08:28)
[2024-04-14 07:17] LABS: BE (Venous) -3 mmol/L (-2-3); HCO3 (Venous) 22 mmol/L (23-28); O2 Sat (Venous) 84 %; TCO2 (Venous) 20 mmol/L (24-29); pCO2 (Venous) 35 mmHg (41-51); pO2 (Venous) 47 mmHg
[2024-04-14 07:25] LABS: HCT 38.3 % (40.0-50.0); HGB 12.6 g/dL (13.5-17.5); MCH 28.8 pg (27.0-33.0); MCHC 32.9 % (32.0-36.0); MCV 87 fL (80-95); MPV 11.1 fL (8.0-11.0); Platelet Count 134 10^3/uL (130-400); RBC 4.38 10^6/uL (4.36-5.78); RDW 13.6 % (11.8-14.1); RDW-SD 43.4 fL
[2024-04-14 07:40] LABS: ALT 26 U/L (16-63); AST 21 U/L (15-37); Albumin 2.9 g/dL (3.4-5.0); Alkaline Phosphatase 85 U/L (46-116); Anion Gap 12.6 mmol/L (3-11); BUN 21 mg/dL (7-18); Bilirubin, Total 0.69 mg/dL (0.2-1.0); CO2 22.4 mmol/L (21.0-32.0); Calcium 8.2 mg/dL (8.5-10.1); Chloride 104 mmol/L (98-107); Estimated GFR 79.47 (mL/min/1.73m2); Glucose 119 mg/dL (74-106); Magnesium 1.7 mg/dL (1.8-2.4); Sodium 139 mmol/L (136-145); Total Protein 5.9 g/dL (6.4-8.2)
[2024-04-14] MEDS: Normal Saline Flush 10 ML SYR IVP ×2 (08:30→21:32)
[2024-04-14] MEDS: Lisinopril 20 MG TAB PO (08:30)
[2024-04-14] MEDS: Sucralfate 1 GM TAB PO ×4 (08:31→21:33)
[2024-04-14] MEDS: Apixaban 5 MG TAB PO ×2 (08:31→21:32)
[2024-04-14] MEDS: Pantoprazole 40 MG TABCR PO (08:31)
[2024-04-14] MEDS: PARoxetine 20 MG TAB PO (08:31)
[2024-04-14] MEDS: Rosuvastatin 20 MG TAB PO (08:31)
[2024-04-14] MEDS: Metoprolol CR 50 MG TABCR PO (08:31)
[2024-04-14] MEDS: Ferrous Sulfate 325 MG TAB PO (08:31)
[2024-04-14] MEDS: amLODIPine 10 MG TAB PO (08:31)
[2024-04-14] MEDS: buPROPion-CR 150 MG TABCR PO (08:31)
--- NOTE | 2024-04-14 09:00 | PDOC.CMIN ---
Date of service: 04/14/24 Time of Service: 09:00 Care Management Initial Assmt Initial Assessment Reason for Hospitalization: Pneumonia Functional Status/Living Situation Patient Presentation: Agustin was sitting up in a chair when CM met with him. He was pleasant and engaged easily with CM. Agustin stated that he is feeling better. He is currently requiring 2.5 to 3L/min of nasal oxygen and does not normally use oxygen at home. He did share that Darlene has home oxygen and he uses hers when needed. Agustin asked CM about the possibility of having a correctional casework specialist in the community. He shared that his partner has one and she has found it very helpful. CM explained a bit about the [facility] [place] [facility] Aging services and programs and offered to send a referral for community case management and [facility]. Agustin agreed and the referral was sent. 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) Instrumental Activities of Daily Living (ADLs): Independent Medications Medication Management: No Issues/Barriers identified Advance Directives Advance Directives: Do you have an Advance Directive: N 01/01/24 20:13 AD On File at [facility]: N 02/15/23 19:55 Date Asked 04/14/24 04/14/24 01:05 AD Date Reviewed COLST On File at [facility] No 01/01/24 17:14 COLST Date Scanned Code Status Resuscitation Status DNR/DNI Portal Pt does not currently have a portal and education provided: No Insurance Coverage/Financial Issues Insurance: [employer] Care Team Visit Care Team Role Provider Type Drea Martines NP Primary Care Provider NURSE PRACTITIONER Bianka Bernal, SUPERVISOR ACCOUNTS RECEIVABLE Other Providers SPEECH LANGUAGE PATHOLOGIST Roger Greene, SUPERVISOR ACCOUNTS RECEIVABLE Other Providers SPEECH LANGUAGE PATHOLOGIST Collette Jenkins Other Providers SPEECH LANGUAGE PATHOLOGIST Cynthia Campos, SUPERVISOR ACCOUNTS RECEIVABLE Other Providers SPEECH LANGUAGE PATHOLOGIST Darlene Merino, SUPERVISOR ACCOUNTS RECEIVABLE Other Providers SPEECH LANGUAGE PATHOLOGIST Juan Calvillo, YIMI Emergency Provider NURSE PRACTITIONER Mehran Cheema Admit Provider NON-[facility] STAFF PHYSICIAN Attending Provider Discharge Potential Discharge Needs: PCP F/U Appt and Other (may need new oxygen) Anticipated Barriers to Discharge: None Identified Patient/Family Education Needs: Review discharge instructions, discuss Ask Me Three Transportation: Private vehicle Plan: Anticipate Agustin will be discharged home, possibly with new oxygen, when medically stable. He will follow up with his community providers and plan of care and transport with family. CM will follow and continue to assess for discharge needs. 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 (Acute) Diarrhea (Acute) Paroxysmal atrial fibrillation (Chronic) new onset 06/17 w TAVR [facility] LBBB (left bundle branch block) (Acute) new 06/17 w TAVR RH GERD (gastroesophageal reflux disease) (Chronic) Impotence of organic origin (Acute) Anemia (Chronic) Heartburn (Acute) Disorder of skull (Acute) Anxiety (Chronic) Asthma (Chronic) Hyperlipidemia (Acute) Coronary arteriosclerosis (Acute) Essential hypertension (Acute) Medical History (Updated 04/14/24 @ 13:01 by Angel Booth) Sepsis Acute hypoxemic respiratory failure Pneumonia Esophageal candidiasis Liver cancer Stomach cancer PTSD (post-traumatic stress disorder) Pt. requests just tap his foot before waking him up, and call his name before doing anything Aortic stenosis w TAVR in [place] 05/31/22 [place] Myocardial infarct, old w stent placed in [place] 2001 History of gastrectomy Surgical History (Updated 04/14/24 @ 12:58 by Angel Booth) S/P TAVR (transcatheter aortic valve replacement) History of esophagogastroduodenoscopy (EGD) (~04/2023) biopsies taken History of colonoscopy (~11/2023) Hx of tonsillectomy History of appendectomy H/O left knee surgery History of Titi-en-Y gastric bypass H/O rotator cuff surgery (~01/19/09) Right Hx of heart artery stent x3 in [place] 2001 Family History Mother , 65 Cancer Heart disease of [place] Hypertension Father , 43 Heart disease IA at age 43 Diabetes Hypertension Son , 5 Months Cancer SIDS Maternal Grandfather Heart disease Hyperlipidemia Maternal Grandmother Heart disease Hyperlipidemia Paternal Grandmother No problems noted. Social History Smoking/Tobacco Use Status: Former Tobacco Use tobacco type: cigarettes Quit Date: 08/27/74 Tobacco: How many years used: 10 Second Hand Exposure: Yes Smoking risk assessment performed?: Yes Alcohol Intake: former Drug use: Current Sobriety Substance use type: former substance user Household members: significant other Housing: other Communication Needs: None Do you need help understanding health information?: Often Pets and animals: Yes Pets and animals: dog(s) Sexually active: No Do you think of yourself as: straight/heterosexual Current gender identity: male What is your relationship status?: How often do you talk on the phone with friends or family?: once per week How often do you get together with friends or relatives?: never How often do you attend holiness or congregational services?: decline to answer Do you belong to any clubs or organized social groups?: no Panel score (0-1 are the most socially isolated patients): 0 What type of physical activity do you participate in: none Frequency: does not exercise Olive/Jew: None Special olive needs: No Seatbelt use: sometimes Helmet use: Yes Helmet use: sometimes Drive intox or ride w/intox river 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 SDOH(Care Management) Screening Will the Patient Participate in the Screening?: Yes Do you worry about having a steady place to live?: no In the past 12 months, have you had to go without electric, gas, oil or water in your home?: no Have you or anyone in your house had to go without enough food to eat?: no Has lack of transportation kept you from medical appointments or from doing things needed for daily living?: no Has anyone in your support network made you feel unsafe for any reason?: no
[2024-04-14] MEDS: Acetaminophen 325 MG TAB PO (10:29)
--- NOTE | 2024-04-14 11:43 | SP_ITS ---
Date of service: 04/14/24 Time of Service: 08:05 Subjective Clinical (Bedside) Swallow Evaluation Speech Language Pathology Referred by: Mehran Cheema Referral Type: Clinical Swallow Evaluation Reason for Referral/HPI: Agustin Bain is a 74 yo male with PMH significant for GERD, hiatal hernia, Montoya's esophagus, stomach ulcer, hx gastric cancer s/p partial gastrectomy approximately 30 years ago. Last endoscopy was performed with Dr Ugarte on 05/25/23 which revealed small hiatal hernia, mild gastritis in the body of the stomach, and indications of montoya's esophagus. Agustin presents to ED with SOB/cough, with CXR positive for multilobar pneumonia/question of aspiration pneumonia. Agustin reports recurrent pneumonia, stating I usually get pneumonia at least once a year. PUSH BUTTON SWITCH ASSEMBLER IMPRESSIONS & RECOMMENDATIONS: Agustin was seen at bedside with breakfast tray for non-instrumental swallow assessment. He denies dysphagia, odynophagia, or significant reflux symptoms. He does endorse frequent cough but does not feel related to swallowing. No overt s/s aspiration or evidence of oral pharyngeal dysphagia appreciated with PO trials. Overall no indications of prandial aspira tion appreciated at bedside. If aspiration is suspected as etiology of recurrent pneumonias- suspect retrograde aspiration associated with reflux as most likely etiology in light of medical history. Patient is managing reflux with pantoprazole 40mg and reports only occasional heartburn - though silent reflux/LPR with aspiration pneumonitis is possible. No further PUSH BUTTON SWITCH ASSEMBLER needs indicated- consider further GI work-up/outpatient GI referral if indicated. Standard reflux precautions reviewed with patient. FURTHER PUSH BUTTON SWITCH ASSEMBLER SERVICES: No further PUSH BUTTON SWITCH ASSEMBLER services indicated Diet Recommendations: Solids: L7 regular Liquids: L0 thin Medications: whole with liquids Supervision: Independent SUBJECTIVE: Patient received alert/awake, conversant, agreeable to evaluation Pain Reported? None Baseline Swallow Function: Patient denies swallowing difficulty prior to admission and eats a regular diet at baseline. PO Trials Assessed: IDDSI 0 Thin Liquids IDDSI 7 Regular Solid toast w/ jam IDDSI L5 oatmeal Oral Mechanism Examination: Patient is edentulous. Oral mucosa is WFL Cranial Nerve Assessment: CN V ? Trigeminal Facial Sensation WNL Jaw Strength/ROM WNL ?WNL CN VII- Facial WNL labial ROM, strength, coordination. WNL lingual sensation WNL CN IX ? Glossopharyngeal WNL palatal elevation with phonation. No evidence of nasal emissions WNL CN X ? Vagus WNL Vocal quality and volume. Strong/sharp volitional cough WNL CX XII ? Hypoglossal WNL lingual ROM, strength, coordination WNL Oral Phase Findings: Prolonged chewing/mashing WFL Pharyngeal Phase Findings: WFL Cough x1 after the swallow, did not appear related to deglutition ? [place] Swallow Protocol Results: PASS ASSESSMENT: Further PUSH BUTTON SWITCH ASSEMBLER Services not indicated Recommendation at Discharge: No PUSH BUTTON SWITCH ASSEMBLER services Suggested Referrals: Consider gastroenterology for rule out recurrent aspiration pneumonitis RISK MANAGEMENT: HOB upright as tolerated; upright for all PO intake. Oral hygiene BID/2x per day Level of Assistance/Supervision: Independent Posture/Positioning Needs: Maintain upright position at least 30 minutes after meals Avoid meals/snacks 2-3 hours prior to reclining/sleeping Sleep with head of bed elevated to reduce likelihood of nocturnal reflux Education Provided to: Nursing, Patient Topics Addressed:PUSH BUTTON SWITCH ASSEMBLER findings, role of PUSH BUTTON SWITCH ASSEMBLER, reflux precautions PLAN:Eval only PUSH BUTTON SWITCH ASSEMBLER CPT Code: 80659 Clinical Swallowing Evaluation TOTAL TIME: 25 minutes [phone]
--- NOTE | 2024-04-14 12:40 | PGE_ITS ---
Date of Service Date of service: 04/14/24 Time of Service: 12:41 Assessment and Plan Assessment and plan (1) Pneumonia: Start date: 04/13/24 Status: Acute Assessment and plan: Community acquired multilobar pneumonia. Aspiration suggested by CT, but he had a benign swallow evaluation. I don't see clear indication for pip/tazo. Will transition regimen to Amp/sulbactam and azithromycin which is c/w standard for CAP and would cover aspiration. Will get urine studies to help with diagnosis as we aren't getting sputum. Blood cx pending. Qualifiers: Pneumonia type: aspiration pneumonia Aspiration pneumonia type: unspecified Laterality: bilateral Lung location: unspecified part of lung Qualified Code(s): J69.0 - Pneumonitis due to inhalation of food and vomit (2) Acute hypoxic respiratory failure: Start date: 04/13/24 Status: Acute Assessment and plan: Still on O2 this morning, wean off oxygen as tolerated. Patient did not have PE. No emphysema or other structural disease noted on CT but he does have a long h/o asthma and he was wheezing when he came in, will add a burst of prednisone. Duoneb ordered on admission, continue prn. (3) Paroxysmal atrial fibrillation: Status: Chronic Assessment and plan: Continue outpatient medical therapy including apixaban. He is not symptomatic so I don't think we need . Cardiac monitoring. (4) Anemia: Status: Chronic Assessment and plan: mild, h/o iron deficiency on iron orally. he is s/p gastric bypass. Qualifiers: Anemia type: iron deficiency (5) DVT prophylaxis: Status: Acute Assessment and plan: on DOAC Subjective Subjective Patient reports: no new complaints, tolerating a regular diet and voiding w/o difficulty; denies diarrhea, nausea, vomiting or fever Interval history since last seen: He is still coughing, mildly short of breath. No sputum or blood. He feels about the same as yesterday. Has not had trouble choking on food. Exam Narrative Exam Narrative: General: Alert and oriented x 3 and in no acute distress. Lungs: Mild decreased aeration of the right base compared to left, no wheezes, rhonchi, or rales. Normal effort. Heart: Regular rate and rhythm with 3/6 systolic murmur, no gallops or rubs. Abdomen: Soft, NT/ND Extremities: Clubbing or cyanosis. 1+ pitting edema both lower extremities. Good cap refill. Objective Last Vital Signs Temp 36.8 C 04/14/24 11:16 Pulse 78 04/14/24 11:16 Resp 20 04/14/24 11:16 BP 106/62 04/14/24 11:16 Pulse Ox 98 04/14/24 11:16 Laboratory Results - last 24 hr 04/13/24 04/13/24 04/13/24 19:35 22:32 22:35 WBC 9.34 RBC 4.55 Hgb 12.9 L Hct 40.5 MCV 89 MCH 28.4 MCHC 31.9 L RDW 13.5 Plt Count 159 MPV 11.0 Immature Gran % 2.4 Neutrophils % 79.2 Lymphocytes % 12.8 Monocytes % 3.5 Eosinophils % 1.9 Basophils % 0.2 Nucleated RBC % 0.0 Absolute Neutrophils 7.39 H Absolute Lymphocytes 1.20 Absolute Monocytes 0.33 Absolute Eosinophils 0.18 Absolute Basophils 0.02 PT 10.9 INR 1.1 APTT 23.4 L VBG pH VBG pCO2 VBG pO2 VBG HCO3 VBG Total CO2 VBG O2 Saturation VBG Base Excess Sodium 141 Potassium 3.9 Chloride 104 Carbon Dioxide 24.5 Anion Gap 12.5 H BUN 23 H Creatinine 1.3 Est GFR (CKD-EPI 2020) 58.01 Glucose 134 H Calcium 8.3 L Magnesium 1.9 Total Bilirubin 0.46 AST 22 ALT 23 Alkaline Phosphatase 102 Troponin I < 50 < 50 NT-Pro-B Natriuret Pep 1746 H Total Protein 6.1 L Albumin 3.1 L TSH COVID-19 Source Nasopharynx SARS-CoV-2 (PCR) Negative Influenza Type A (PCR) Negative Influenza Type B (PCR) Negative RSV (PCR) Negative 04/14/24 04/14/24 04/14/24 05:52 06:52 07:10 WBC 5.30 RBC 4.38 Hgb 12.6 L Hct 38.3 L MCV 87 MCH 28.8 MCHC 32.9 RDW 13.6 Plt Count 134 MPV 11.1 H Immature Gran % Neutrophils % Lymphocytes % Monocytes % Eosinophils % Basophils % Nucleated RBC % Absolute Neutrophils Absolute Lymphocytes Absolute Monocytes Absolute Eosinophils Absolute Basophils PT INR APTT VBG pH 7.40 VBG pCO2 35 L VBG pO2 47 VBG HCO3 22 L VBG Total CO2 20 L VBG O2 Saturation 84 VBG Base Excess -3 L Sodium 139 Potassium 4.0 Chloride 104 Carbon Dioxide 22.4 Anion Gap 12.6 H BUN 21 H Creatinine 1.0 Est GFR (CKD-EPI 2020) 79.47 Glucose 119 H Calcium 8.2 L Magnesium 1.7 L Total Bilirubin 0.69 AST 21 ALT 26 Alkaline Phosphatase 85 Troponin I NT-Pro-B Natriuret Pep Total Protein 5.9 L Albumin 2.9 L TSH 0.90 COVID-19 Source SARS-CoV-2 (PCR) Influenza Type A (PCR) Influenza Type B (PCR) RSV (PCR) Time Spent with Patient Time Spent with Patient: 35-49 minutes Time was spent: preparing to see the patient(eg.review tests), obtaining and/or reviewing separately otained hiistory, ordering medications,tests, procedures, referring, communicating with other health healthcare customer service, indepentently interpreting results and counseling the patient
[2024-04-14 13:24] LABS: Bilirubin Negative (Negative); Blood Negative (Negative); Clarity Sl Cloudy (Clear); Glucose Negative (Negative); Ketones Negative (Negative); Leukocyte Esterase Negative (Negative); Nitrite Negative (Negative); Urobilinogen 0.2 mg/dL (Up to 0.2); pH 5.5 (5-8)
[2024-04-14] MEDS: predniSONE 20 MG TAB 40 MG PO (13:58)
[2024-04-14] MEDS: AMPICILLIN/SULBACTAM 3 GM in Normal Saline 100 ML IVPB ×2 (13:59→21:31)
[2024-04-14] MEDS: AZITHROMYCIN 250 MG in Normal Saline 250 ML IVPB (15:00)
[2024-04-15] MEDS: AMPICILLIN/SULBACTAM 3 GM in Normal Saline 100 ML IVPB ×3 (02:42→13:46)
[2024-04-15 03:19] VITALS: BP 110/79; PULSE 89; RESP 19; TEMP 36.2; O2SAT 97
[2024-04-15 07:20] VITALS: BP 120/83; PULSE 83; RESP 17; TEMP 36; O2SAT 98
[2024-04-15] MEDS: Normal Saline Flush 10 ML SYR IVP (09:13)
[2024-04-15] MEDS: Tamsulosin 0.4 MG CAPCR PO (09:16)
[2024-04-15] MEDS: predniSONE 20 MG TAB 40 MG PO (09:17)
[2024-04-15] MEDS: Lisinopril 20 MG TAB PO (09:17)
[2024-04-15] MEDS: PARoxetine 20 MG TAB PO (09:17)
[2024-04-15] MEDS: Rosuvastatin 20 MG TAB PO (09:18)
[2024-04-15] MEDS: Metoprolol CR 50 MG TABCR PO (09:19)
[2024-04-15] MEDS: Sucralfate 1 GM TAB PO ×2 (09:19→12:08)
[2024-04-15] MEDS: buPROPion-CR 150 MG TABCR PO (09:19)
[2024-04-15] MEDS: Ferrous Sulfate 325 MG TAB PO (09:20)
[2024-04-15] MEDS: Pantoprazole 40 MG TABCR PO (09:20)
[2024-04-15] MEDS: amLODIPine 10 MG TAB PO (09:21)
[2024-04-15] MEDS: Apixaban 5 MG TAB PO (09:21)
--- NOTE | 2024-04-15 09:50 | PDOC.CMPRO ---
Date of service: 04/15/24 Time of Service: 09:50 Care Management Progress Note Discharge Potential Discharge Needs: PCP F/U Appt Anticipated Barriers to Discharge: None Identified Patient/Family Education Needs: Review discharge instructions, discuss Ask Me Three Transportation: Private vehicle Plan: Anticipate Agustin will be discharged home, possibly with new oxygen, when medically stable. He will follow up with his community providers and plan of care and transport with family. CM will follow and continue to assess for discharge needs. SDOH(Care Management) Screening Will the Patient Participate in the Screening?: Yes Do you worry about having a steady place to live?: no In the past 12 months, have you had to go without electric, gas, oil or water in your home?: no Have you or anyone in your house had to go without enough food to eat?: no Has lack of transportation kept you from medical appointments or from doing things needed for daily living?: no Has anyone in your support network made you feel unsafe for any reason?: no
[2024-04-15 11:27] VITALS: BP 116/74; PULSE 81; RESP 20; TEMP 36.8; O2SAT 99
--- NOTE | 2024-04-15 14:49 | PGE_ITS ---
Date of Service Date of service: 04/15/24 Time of Service: 14:49 Assessment and Plan Assessment and plan (1) Pneumonia: Start date: 04/13/24 Status: Acute Assessment and plan: Community acquired multilobar pneumonia. Aspiration suggested by CT, but he had a benign swallow evaluation. blood cultures no growth at 24h. sputum ordered this morning but no sputum sent yet. Fluvid was negative on admission, urine for Strep and Legionella antigen are pending. If his oxygen level is ok w/ ambulation, then I see no reason for not disc harging him home. Will treat w/ 5 days of Augmentin and azithromycin.(in addition to antibiotics he already has had, this would complete 7 days of antibiotics). Qualifiers: Pneumonia type: aspiration pneumonia Aspiration pneumonia type: unspecified Laterality: bilateral Lung location: unspecified part of lung Qualified Code(s): J69.0 - Pneumonitis due to inhalation of food and vomit (2) Acute hypoxic respiratory failure: Start date: 04/13/24 Status: Resolved (3) Paroxysmal atrial fibrillation: Status: Chronic Assessment and plan: Continue outpatient medical therapy including apixaban. He is not symptomatic so I don't think we need . Cardiac monitoring. (4) Anemia: Status: Chronic Assessment and plan: mild, h/o iron deficiency on iron orally. he is s/p gastric bypass. Qualifiers: Anemia type: iron deficiency (5) DVT prophylaxis: Status: Acute Assessment and plan: on DOAC Subjective Subjective Interval history since last seen: Patient feeling markedly better. Not dyspneic at rest or with walking around his room or going to the bathroom. He was on oxygen at 2 lpm this morning w/ his SPO2 99%. I asked nursing to wean him off oxygen and he has remained 96%. He denies any sputum production or dyspnea or chest pain. He wants to return home today. I told his nurse that I would like him ambulated w/ pulse oximetry evluation while walking. Exam Narrative Exam Narrative: Agustin is alert and oriented, able to talk in complete paragraphs w/out dyspnea, not using respiratory accessory muscles Lungs: bibasilar rales, no rhonchi or wheezing Heart: RRR Extremities: no pitting edema, no cyanosis Objective Last Vital Signs Temp 36.8 C 04/15/24 11:27 Pulse 81 04/15/24 11:27 Resp 20 04/15/24 11:27 BP 116/74 04/15/24 11:27 Pulse Ox 99 04/15/24 11:27 Time Spent with Patient Time Spent with Patient: 25-34 minutes Time was spent: preparing to see the patient(eg.review tests), ordering medications,tests, procedures, referring, communicating with other health respiratory care instructor, indepentently interpreting results, counseling the patient and care coordination
[2024-04-15] MEDS: AZITHROMYCIN 250 MG in Normal Saline 250 ML IVPB (14:52)
--- NOTE | 2024-04-15 15:06 | DSE_ITS ---
Date of service: 04/15/24 Time of Service: 15:06 DS: Diagnosis Discharge Diagnosis (1) Pneumonia: Status: Acute Asessment and Plan: Patient presented with acute onset of productive cough and increasing shortness of breath was found to have multi lobar pneumonia on CT scan of his chest. The emergency room he was treated with aerosolized bronchodilators, supplemental oxygen initially requiring up to 10 L/min but then weaned down to nasal cannula. Blood cultures were obtained and Fluvid swab was obtained which was negative for influenza RSV or COVID. Patient was initially treated with azithromycin and Zosyn but then later changed to Unasyn. White blood cell count on admission was 9300 and came down to 5300.. Patient was weaned from 10 L/min down to 2.5 L/min on the day of discharge was weaned to room air. On the day of discharge she underwent an ambulatory exercise pulse oximetry which his resting SpO2 was 98% on room air and with ambulation was 95%. Heart rate resting was 93 and during activity was 95. As the patient was feeling markedly better and was desiring to return home he was discharged home on 5 more days of Augmentin 500 mg p.o. 3 times a day along with azithromycin to a 50 mg p.o. daily for 5 days. Follow-up chest x-ray should be done in 2 weeks patient should see his primary care provider within the next week. If he has any symptoms of chest pain or increased dyspnea he should return to the emergency department (2) Acute hypoxic respiratory failure: Status: Resolved Asessment and Plan: Secondary to commune acquired pneumonia (3) Paroxysmal atrial fibrillation: Status: Chronic Asessment and Plan: Patient remains in chronic atrial fibrillation for which she has been asymptomatic. He did not require any additional rate controlling medications. He was kept on his home dose of metoprolol along with his apixaban. (4) Anemia: Status: Chronic Asessment and Plan: Stable chronic anemia with a hemoglobin 12.6 g with normocytic normochromic. Patient had no evidence of acute GI bleeding this admission further evaluation is left at the discretion of his primary care provider (5) DVT prophylaxis: Status: Acute Asessment and Plan: Patient was treated with SCDs during his hospitalization but no chemoprophylaxis Discharge Plan Disposition Patient Disposition: Home Condition: Improving Discharge Details Reason For Visit: Pneumonia, Hypoxia Admit Date/Time: 04/13/24 23:13 Admit Provider: Mehran Cheema Attending Provider: Mehran Cheema Primary Care Provider: Drea Martines Hospital Course Hospital Course: See admission H&P and emergency room notes for details of his presenting signs and symptoms. See above for hospital course Home Meds and New Rx's Prescriptions: New amoxicillin-pot clavulanate [Augmentin] 500-125 mg tablet 1 tab PO TID 5 Days Qty: 15 0RF azithromycin 250 mg tablet 250 mg PO DAILY 5 Days Qty: 5 0RF Continued hydrocortisone acetate [Anusol-HC] 25 mg suppository 25 mg MA BID PRN (Reason: hemorrhoids) Qty: 24 1RF cyclobenzaprine 5 mg tablet 5 mg PO TID PRN (Reason: back pain) Qty: 14 0RF Rx Instructions: Take 1 tablet by mouth three times a day as needed for back pain melatonin 10 mg tablet 10 mg PO DAILY PRN alfuzosin 10 mg tablet extended release 24 hr 10 mg PO DAILY Qty: 90 3RF Rx Instructions: administer after the same meal each day amlodipine 10 mg tablet 10 mg PO DAILY Qty: 90 3RF Eliquis 5 mg tablet 5 mg PO BID Qty: 180 3RF bupropion HCl 150 mg tablet sustained-release 12 hr 150 mg PO QAM Qty: 90 3RF famotidine 20 mg tablet 20 mg PO BID Qty: 180 3RF furosemide 20 mg tablet 20 mg PO DAILY Qty: 90 3RF lisinopril 20 mg tablet 20 mg PO DAILY Qty: 90 3RF Patient Comments: pt. reports he no longer takes metoprolol succinate 50 mg tablet extended release 24 hr 50 mg PO DAILY Qty: 90 3RF ferrous sulfate 325 mg (65 mg iron) tablet 325 mg PO DAILY Qty: 90 1RF Rx Instructions: Take 1 tablet once a day with your vitamin c or a glass of orange juice Bio-K plus 50 billion cell capsule,delayed release(DR/EC) 1 cap PO DAILY Qty: 6 0RF Discontinued cefpodoxime 200 mg Tablet 400 mg PO BID Qty: 16 0RF No Action albuterol sulfate [ProAir HFA] 90 mcg/actuation HFA aerosol inhaler 2 puff inhalation Q6H PRN (Reason: shortness of breath or wheezing) Qty: 8.5 3RF pantoprazole [Protonix] 40 mg tablet,delayed release (DR/EC) 40 mg PO DAILY Qty: 90 12RF paroxetine HCl 20 mg tablet 20 mg PO DAILY Qty: 90 3RF rosuvastatin 20 mg tablet 20 mg PO DAILY Qty: 90 3RF sucralfate [Carafate] 1 gram tablet 1 g PO QACHS Qty: 120 12RF Discharge Instructions Instructions: Community-Acquired Pneumonia, Adult (DC) Stand Alone Forms: Nursing Discharge Form Referrals: Drea Martines NP [Primary Care Provider] - 04/22/24 1:00 pm (needs follow up OV within one week, repeat CXR in 2 weeks) Activity:: Activity as Tolerated Equipment/Supplies:: No Equipment Needed Diet:: Normal Diet Discharge Orders Discharge Orders: Discharge Order (Routine); Ordered 04/15/24 Ordered By: Jorge Ragsdale Other Ambulatory Orders: XR chest 2V PA & lateral (Routine) Timeframe: 2 Weeks Facility: [facility] - Location: DIAGNOSTIC IMAGING DEPT Ordered By: Jorge Ragsdale Discharge Data Discharge Date/Time-TO BE ENTERED AT DEPARTURE: 04/15/24 16:50 DS: Summary Time Spent with Patient providing and/or coordinating discharge services: Less than 30 minutes Specific discharge activities: Interview/exam of patient; review of discharge instructions, completion of prescriptions/discharge instructions; discussion w/ nursing and CM; documentation of hospital visit Status at Discharge Functional status at discharge: independent ambulation Overall status at discharge: patient is progressing back to baseline Mental Status: mental status grossly normal Speech and Movement: speech and movement normal Mood: congruent mood Affect: normal affect Quality:SDOH Health Related Social Needs: No Data to Display Exam Narrative Exam Narrative: Agustin is alert and oriented, able to talk in complete paragraphs w/out dyspnea, not using respiratory accessory muscles Lungs: bibasilar rales, no rhonchi or wheezing Heart: RRR Extremities: no pitting edema, no cyanosis Psych Mental Status: mental status grossly normal Speech and Movement: speech and movement normal Mood: congruent mood Affect: normal affect DS: Data Vitals/I&O Vitals and I&O: Vital Signs Temperature 36.8 C 04/15/24 11:27 Temperature Source Temporal Artery Scan 04/15/24 11:27 Pulse 81 04/15/24 11:27 Pulse Rhythm Irregular 04/15/24 10:10 Pulse 94 H 04/14/24 00:30 Respiratory Rate 20 04/15/24 11:27 Respiratory Effort Normal, Non-Labored 04/15/24 10:10 Respiratory Depth Normal 04/15/24 10:10 Respiratory Pattern Normal 04/15/24 10:10 Blood Pressure 116/74 04/15/24 11:27 Blood Pressure Mean 87 04/14/24 00:21 Blood Pressure Position Supine 04/13/24 19:47 Pulse Oximetry 99 04/15/24 11:27 Oxygen Delivery Method Nasal Cannula 04/15/24 11:27 Oxygen Flow Rate 2.5 04/15/24 11:27 Pain Level 2 04/15/24 11:27 Comment nurse notified. 04/14/24 15:25 Intake & Output 04/14/24 04/15/24 04/15/24 23:59 11:59 23:59 Intake Total 575 / 2455 300 / 980 680 / 980 Output Total 900 / 1625 1800 / 1800 Balance -325 / 830 -1500 / -820 680 / -820 Intake: IV 355 / 1755 300 / 400 100 / 400 Oral 220 / 700 580 / 580 Output: Urine 900 / 1625 1800 / 1800 Other: Urine Color Yellow Straw Urine Appearance Clear Clear Urine Odor Strong Strong Voiding Methods Urinal Urinal Data Completed and Pending Labs on day of discharge: Labs from last 24 hours 04/14/24 16:45 Urine Legionella Ag Pending Ur Strep pneumoniae Ag Pending 04/15/24 11:50 Sputum Sputum Culture - Pending 04/15/24 11:50 Sputum Gram Stain - Pending Preliminary micro results at discharge 04/15/24 11:50 Sputum Culture - Pending Sputum Gram Stain - Pending 04/13/24 23:03 Blood Culture - Preliminary Blood NO GROWTH 24 HOURS 04/13/24 23:12 Blood Culture - Preliminary Blood NO GROWTH 24 HOURS PFSH All Active Problems DVT prophylaxis (Acute) Bacteremia (Acute) Pneumonia (Acute) Adenomatous colon polyp (Acute) Pancolonic diverticulosis (Acute) Internal and external hemorrhoids without complication (Acute) Internal thrombosed hemorrhoids (Acute) Incomplete rectal prolapse (Acute) Prediabetes (Acute) Bleeding acute gastric ulcer (Acute) History of malignant neoplasm metastatic to liver (Acute) History of gastric cancer (Acute) 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 requests just tap his foot before waking him up, and call his name before doing anything Aortic stenosis w TAVR in [place] 05/31/22 RH Myocardial infarct, old w stent placed in [place] 2001 History of gastrectomy Surgical History S/P TAVR (transcatheter aortic valve replacement) History of esophagogastroduodenoscopy (EGD) (~04/2023) biopsies taken History of colonoscopy (~11/2023) Hx of tonsillectomy History of appendectomy H/O left knee surgery History of Titi-en-Y gastric bypass H/O rotator cuff surgery (~01/19/09) Right Hx of heart artery stent x3 in [place] 2001 Family History Mother , 65 Cancer Heart disease of CT Hypertension Father , [address] at age 43 Diabetes Hypertension Son , 5 Months Cancer SIDS Maternal Grandfather Heart disease Hyperlipidemia Maternal Grandmother Heart disease Hyperlipidemia Paternal Grandmother No problems noted. Social History Smoking/Tobacco Use Status: Former Tobacco Use tobacco type: cigarettes Quit Date: 08/27/74 Tobacco: How many years used: 10 Second Hand Exposure: Yes Smoking risk assessment performed?: Yes Alcohol Intake: former Drug use: Current Sobriety Substance use type: former substance user Household members: significant other Housing: other Communication Needs: None Do you need help understanding health information?: Often Pets and animals: Yes Pets and animals: dog(s) Sexually active: No Do you think of yourself as: straight/heterosexual Current gender identity: male What is your relationship status?: How often do you talk on the phone with friends or family?: once per week How often do you get together with friends or relatives?: never How often do you attend baptist or holiness services?: decline to answer Do you belong to any clubs or organized social groups?: no Panel score (0-1 are the most socially isolated patients): 0 What type of physical activity do you participate in: none Frequency: does not exercise Olive/Christianity: None Special olive needs: No Seatbelt use: sometimes Helmet use: Yes Helmet use: sometimes Drive intox or ride w/intox emergency detail 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 Time Spent with Patient Time Spent with Patient: <45 minutes Time was spent: preparing to see the patient(eg.review tests), ordering medications,tests, procedures, referring, communicating with other health career orientation teacher, indepentently interpreting results, counseling the patient and care coordination
[2024-04-15 15:20] VITALS: BP 124/72; PULSE 83; RESP 18; TEMP 36.6; O2SAT 97
[2024-04-15 16:00] VITALS: PULSE 92; PULSE 93; PULSE 95; O2SAT 95; O2SAT 97; O2SAT 98
--- NOTE | 2024-04-15 16:02 | RESPIRATORY ---
Exercise Oximetry Resting SpO2 on RA: 98% Resting HR: 93 Ambulating SpO2 on RA: 95% Ambulating HR: 95 Recovery SpO2 on RA: 97% Recovery HR: 92 Pt does not qualify for O2 at this time.
--- NOTE | 2024-04-15 16:57 | CMDISCH_ITS ---
Date of service: 04/15/24 Time of Service: 16:58 LACE Index Scoring Tool Questions: Length of Stay (in days): 2 Was the patient admitted via the E.D.?: Yes Comorbidities: Previous M.I. and Metastatic Solid Tumor E.D. Visits: 2 Answers: Total Score: 12 Risk of Readmission: High Risk Care Management Discharge Plan Reason for Hospitalization: Pneumonia Discharge Plan: Agustin will be discharged home with no new services. He will fo llow up with his community providers and plan of care and transport with family. Patient/Family Education Needs: Review discharge instructions, limitations, follow up plan and discuss Ask Me [facility] Health Related Social Needs: No Data to Display
[2024-04-15 23:40] LABS: Legionella Ag Detection Urine Negative (Negative)
[2024-04-16 22:10] LABS: Streptococcus Pneumoniae Ag, U Negative (Negative)
== END 2024-04-15 16:50 | disposition home or self-care (01) | DRG 193 ==
LOC: ER 04-14 01:05 → MS 04-14 01:07
PROVIDERS: Family Medicine; Admitting Provider Family Medicine; Emergency Provider Nurse Practitioner Family; PCP Nurse Practitioner Family; Visit Provider Family Medicine
DX: J18.9 Pneumonia, unspecified organism (principal); J96.01 Acute respiratory failure with hypoxia; I48.0 Paroxysmal atrial fibrillation; D64.9 Anemia, unspecified; R05.3 Chronic cough; Z79.01 Long term (current) use of anticoagulants; Z95.4 Presence of other heart-valve replacement; Z66 Do not resuscitate; K57.30 Diverticulosis of large intestine without perforation or abscess without bleeding; R73.03 Prediabetes; K22.70 Barrett's esophagus without dysplasia; I34.0 Nonrheumatic mitral (valve) insufficiency; I65.23 Occlusion and stenosis of bilateral carotid arteries; K64.9 Unspecified hemorrhoids; K59.09 Other constipation; Z87.891 Personal history of nicotine dependence; D50.9 Iron deficiency anemia, unspecified; K44.9 Diaphragmatic hernia without obstruction or gangrene; K21.9 Gastro-esophageal reflux disease without esophagitis; I44.7 Left bundle-branch block, unspecified; I10 Essential (primary) hypertension; I25.10 Atherosclerotic heart disease of native coronary artery without angina pectoris; E78.5 Hyperlipidemia, unspecified; J45.909 Unspecified asthma, uncomplicated; Z85.028 Personal history of other malignant neoplasm of stomach; Z85.05 Personal history of malignant neoplasm of liver; I25.2 Old myocardial infarction; Z90.3 Acquired absence of stomach [part of]; Z79.899 Other long term (current) drug therapy
CPT/HCPCS: 00123; 36415; 71275; 80053; 82805; 85027; 87040; 87449; 87637; 92610; 93005; 94618; 96365; 96368; 96375; 99285; 71045; 81003; 83735; 83880; 84443; 84484; 85025; 85610; 85730; 87070; 87205; 87899; 93010; 94640; 94667; 94760; 99223; 99232; 99238; J0295; J0456; J0696; J2270; J2543; J3490; J7512; J7620

== ENCOUNTER 2024-04-25 00:32 | Outpatient (CLI) | payer OTHER, SELFPAY ==
--- NOTE | 2024-04-25 12:15 | DI.RAD_ITS ---
Exam(s) XR CHEST 2V PA LATERAL EXAM: XR CHEST 2V PA LATERAL CLINICAL HISTORY: pneumonia, J18.9. TECHNIQUE: 2D digital imaging was performed. COMPARISON: CR,XR XR PORTABLE CHEST AP from 04/13/[address] CHEST PE CTA from 04/13/2024 FINDINGS: 2 views: Aortic valve TAVR again noted Heart size is normal. The mediastinum is not widened. There are mild residual markings in lung bases but appearance is most probably less than was evident on CT scan of 04/13/2024. There are no pleural effusions. No evidence of pulmonary edema. Surgical clips in the left upper quadrant of the are again noted. IMPRESSION: Improving infiltrates in the lung bases when compared to CT scan of 04/13/2024. No obvious pleural e ffusions. DATA REPOSITORY: RADIATION DOSE DELIVERED:
== END 2024-04-25 00:52 ==
LOC: DI 00:32
PROVIDERS: PCP Nurse Practitioner Family; Visit Provider Internal Medicine
DX: J18.9 Pneumonia, unspecified organism (principal)
CPT/HCPCS: 71046

== ENCOUNTER → 2024-05-28 10:22 | Outpatient (BNVA) | payer OTHER, SELFPAY | PROVIDERS: PCP Nurse Practitioner Family; Referring Provider Nurse Practitioner Family; Visit Provider Student in an Organized Health Care Education/Training Program | DX: M65.342 Trigger finger, left ring finger (principal) | CPT/HCPCS: 99214 ==

== ENCOUNTER 2024-06-19 06:39 | Day surgery (SDC) | payer OTHER, SELFPAY ==
[2024-06-19 06:43] VITALS: BP 118/74; PULSE 91; RESP 18; TEMP 36.3; O2SAT 95
--- NOTE | 2024-06-19 06:51 | W.PM.OP ---
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 Procedure Description: In the operating room, the patient was positioned supine on the stretcher. All bony prominences were padded. Preoperative antibiotics were omitted. The correct patient, procedure, and side of the procedure were all verified prior to beginning. Local anesthesia was induced about the site with 10cc of 1% lidocaine containing epinephrine buffered with 1 cc of sodium bicarbonate. The Left hand was prepped and draped in the usual sterile fashion. Proper analgesia was confirmed. A small volar longitudinal approach was made overlying the ring finger MCP joint. Soft tissues were swept to the sides and retracted to expose the A1 maycol. It was quite thickened and taut. The release was started centrally with a knife and completed at the proximal and distal margins with tenotomy scissors. Care was taken to protect the flexor tendons. The tendons were inspected and showed some tenosynovitis, which was debrided, but no notable tearing. Appropriate flexor tendon excursion was confirmed. The patient readily demonstrated [full range of motion] of the finger without triggering. The small incision was irrigated and then dried. Hemostasis was appropriate. The incision was closed using 3-0 nylon in a horizontal mattress fashion. Xeroform was applied followed by gauze and the hand was gently compressed with an Phu bandage. The patient tolerated local anesthesia without complication and was transferred out of the operating room in a stable condition.
--- NOTE | 2024-06-19 07:06 | W.PM.DSUDISC ---
Date of service: 06/19/24 Time of Service: 09:00 Discharge Plan Disposition Patient Disposition: Home Discharge Details Attending Provider: Dave Pelletier Primary Care Provider: Drea Martines Home Meds and New Rx's Prescriptions: Continued albuterol sulfate [ProAir HFA] 90 mcg/actuation HFA aerosol inhaler 2 puff inhalation Q6H PRN (Reason: shortness of breath or wheezing) Qty: 8.5 3RF hydrocortisone acetate [Anusol-HC] 25 mg suppository 25 mg CO BID PRN (Reason: hemorrhoids) Qty: 24 1RF cyclobenzaprine 5 mg tablet 5 mg PO TID PRN (Reason: back pain) Qty: 14 0RF Rx Instructions: Take 1 tablet by mouth three times a day as needed for back pain lisinopril 20 mg tablet 20 mg PO QHS Qty: 90 3RF Patient Comments: pt. reports he no longer takes pantoprazole 20 mg tablet,delayed release (DR/EC) 20 mg PO DAILY Qty: 90 0RF Rx Instructions: Patient to wean off this medication as follows: Take 20 mg once daily for two weeks, then decrease to 20 mg every other day for two weeks, then 20 mg every third day for two weeks, then stop melatonin 10 mg tablet 10 mg PO DAILY PRN alfuzosin 10 mg tablet extended release 24 hr 10 mg PO DAILY Qty: 90 3RF Rx Instructions: administer after the same meal each day amlodipine 10 mg tablet 10 mg PO DAILY Qty: 90 3RF Eliquis 5 mg tablet 5 mg PO BID Qty: 180 3RF bupropion HCl 150 mg tablet sustained-release 12 hr 150 mg PO QAM Qty: 90 3RF famotidine 20 mg tablet 20 mg PO BID Qty: 180 3RF furosemide 20 mg tablet 20 mg PO DAILY Qty: 90 3RF metoprolol succinate 50 mg tablet extended release 24 hr 50 mg PO DAILY Qty: 90 3RF paroxetine HCl 20 mg tablet 20 mg PO DAILY Qty: 90 3RF rosuvastatin 20 mg tablet 20 mg PO DAILY Qty: 90 3RF ferrous sulfate 325 mg (65 mg iron) tablet 325 mg PO DAILY Qty: 90 1RF Rx Instructions: Take 1 tablet once a day with your vitamin c or a glass of orange juice sucralfate [Carafate] 1 gram tablet 1 g PO QACHS Qty: 120 12RF Bio-K plus 50 billion cell capsule,delayed release(DR/EC) 1 cap PO DAILY Qty: 6 0RF Discharge Instructions Additional Instructions: Surgery: Left ring finger trigger release Activity: Protect hand for a few weeks. Gently increase finger motion and hand gripping to prevent stiffness. Recommend elevation to minimize swelling and discomfort. Prescriptions: None Resume home medicines including Eliquis this evening Use [id number] Tylenol (acetaminophen) as needed for pain Dressings: Leave dressing in place for 3 days. May then remove and leave open to air or cover incision with Band-Aid. May get wet after 5 days. Follow-up: 10-[address] Pelletier Please call the office during business hours with any questions or concerns. Discharge Orders Discharge Orders: Discharge Order (Routine); Ordered 06/19/24 Ordered By: Dave Pelletier DS: Diagnosis Discharge Diagnosis (1) Trigger finger, left ring finger: Status: Acute
[2024-06-19] MEDS: Lidocaine 1% Pres-Free W/EPI 1/200,000 10 ML VIAL (07:32)
[2024-06-19] MEDS: Sodium Bicarbonate 50 MEQ/50 ML VIAL (07:32)
[2024-06-19 07:55] VITALS: BP 117/85; PULSE 90; RESP 18; TEMP 36.1; O2SAT 98
== END 2024-06-19 08:08 | disposition home or self-care (01) ==
PROVIDERS: PCP Nurse Practitioner Family; Visit Provider Student in an Organized Health Care Education/Training Program
PROC: (CPT 26055; principal; 2024-06-19 07:30)
DX: M65.342 Trigger finger, left ring finger (principal)
CPT/HCPCS: 26055; J2004

== ENCOUNTER → 2024-07-01 09:37 | Outpatient (BNVA) | payer OTHER, SELFPAY | PROVIDERS: PCP Nurse Practitioner Family; Referring Provider Nurse Practitioner Family; Visit Provider Student in an Organized Health Care Education/Training Program | DX: Z47.89 Encounter for other orthopedic aftercare (principal); M25.642 Stiffness of left hand, not elsewhere classified | CPT/HCPCS: 99024 ==

== ENCOUNTER 2024-07-10 16:30 | Outpatient (REF) | payer OTHER, SELFPAY ==
[2024-07-10 22:07] LABS: HCT 40.3 % (40.0-50.0); HGB 12.8 g/dL (13.5-17.5); MCH 28.4 pg (27.0-33.0); MCHC 31.8 % (32.0-36.0); MCV 90 fL (80-95); MPV 11.3 fL (8.0-11.0); Platelet Count 184 10^3/uL (130-400); RDW 14.3 % (11.8-14.1); RDW-SD 46.8 fL; WBC 6.29 10^3/uL (4.4-10.8)
[2024-07-10 22:24] LABS: ALT 31 U/L (16-63); AST 25 U/L (15-37); Albumin 3.8 g/dL (3.4-5.0); Alkaline Phosphatase 111 U/L (46-116); Anion Gap 10.6 mmol/L (3-11); BUN 17 mg/dL (7-18); Bilirubin, Total 0.52 mg/dL (0.2-1.0); CO2 26.4 mmol/L (21.0-32.0); CREATININE 1.2 mg/dL (0.70-1.30); Calcium 8.7 mg/dL (8.5-10.1); Chloride 107 mmol/L (98-107); Cholesterol 145 mg/dL (<200); Estimated GFR 63.85 (mL/min/1.73m2); Glucose 106 mg/dL (74-106); HDL Cholesterol 36 mg/dL (40-60); Potassium 4.5 mmol/L (3.5-5.1); Sodium 144 mmol/L (136-145); Total Protein 6.9 g/dL (6.4-8.2); Triglyceride 403 mg/dL (<150)
[2024-07-10 22:36] LABS: Hemoglobin A1C 5.9 % (<5.7)
[2024-07-10 22:37] LABS: LDL CHOLESTEROL 47 mg/dL (<100)
[2024-07-11 18:02] LABS: PSA, Screening 0.2 ng/mL (<=6.5)
[2024-07-11 23:51] LABS: Hepatitis C Ab w Rflx HCV PCR Negative (Negative)
== END 2024-07-10 16:31 | disposition home or self-care (01) ==
LOC: LBN 16:30
PROVIDERS: PCP Nurse Practitioner Family; Visit Provider Nurse Practitioner Family
DX: I10 Essential (primary) hypertension (principal); E78.5 Hyperlipidemia, unspecified; R73.03 Prediabetes; D64.9 Anemia, unspecified; K21.9 Gastro-esophageal reflux disease without esophagitis; Z12.5 Encounter for screening for malignant neoplasm of prostate; Z11.59 Encounter for screening for other viral diseases
CPT/HCPCS: 80053; 80061; 83721; 84153; 85027; 86803; 83036

== ENCOUNTER 2024-07-18 02:51 | Outpatient (CLI) | payer OTHER, SELFPAY ==
[2024-07-18] MEDS: Inhaler, Assist Device 1 EACH MC (14:36)
[2024-07-18] MEDS: Methacholine 100 MG VIAL IH (14:36)
[2024-07-18] MEDS: Albuterol HFA 18 GM 200 PUFF INH IH (14:36)
--- NOTE | 2024-07-28 14:51 | W.PFT ---
Date of service: 07/18/24 Time of Service: 12:48 Pulmonary Function Test Result Indications: Asthma Interpretation Spirometry: No baseline airflow limitation. There was a 26% decrease in FEV1 with administration of 0.5mg/mL methacholine. Lung Volumes: Normal lung volumes Diffusion Capacity: Decreased diffusion Airway Pressure: Normal airways resistance Impression There is a decreased diffusion and a positive methacholine challenge. The decrease diffusion may represent emphysema, ILD or pulmonary vascular disease. Clinical Correlation therefore is recommended.
== END 2024-07-18 02:52 | disposition home or self-care (01) ==
LOC: RT 02:51
PROVIDERS: PCP Nurse Practitioner Family; Visit Provider Nurse Practitioner Family
DX: J45.909 Unspecified asthma, uncomplicated (principal)
CPT/HCPCS: 94060; 94070; 94726; 94729; J7674

== ENCOUNTER → 2024-09-11 11:18 | Outpatient (BNVA) | payer MEDICARE, SELFPAY | PROVIDERS: PCP Nurse Practitioner Family; Referring Provider Nurse Practitioner Family; Visit Provider Nurse Practitioner Adult Health | DX: R51.9 Headache, unspecified (principal); H81.13 Benign paroxysmal vertigo, bilateral; G62.9 Polyneuropathy, unspecified | CPT/HCPCS: 99215 ==

== ENCOUNTER 2024-09-12 00:18 | Outpatient (CLI) | payer MEDICARE, SELFPAY ==
--- NOTE | 2024-09-12 07:15 | DI.MRI_ITS ---
Exam(s) MR BRAIN WO/W EXAM: MR BRAIN WO/W CLINICAL HISTORY: hx of brain mass in 2006,HEADACHES,VERTIGO,ABNL BRAIN MRI. TECHNIQUE: Multiplanar multisequence MRI of the brain was performed. CONTRAST MATERIAL: IV Contrast: 20 ML of Dotarem contrast administered. COMPARISON: No exams were available for comparison FINDINGS: VENTRICLES AND EXTRA AXIAL SPACES: Normal in size and morphology for the patient's age. HEMORRHAGE: None. CEREBRAL PARENCHYMA: No focus of restricted diffusion to suggest acute infarct. No space-occupying le jamar identified. Scattered white matter foci consistent with microvascular changes. BRAINSTEM/CEREBELLUM: Samson cisterna magna. CALVARIUM: A heterogeneous, mixed signal lobulated mass is noted at the left skull base, petrous apex , measuring approximately 4.5 x 2.7 by 3.3 cm. It appears circumscribed. Minimal enhancement. It lopez ates the carotid artery anteriorly. It is located below the level of the internal auditory canal whic h appears narrowed and displaced posteriorly. The colic and semicircular canals appear grossly intact .. No additional skull lesions are identified. VISUALIZED PARANASAL SINUSES/MASTOIDS: Mucosal thickening of the ethmoid and right sphenoid sinus. M ucous retention and mucosal thickening of the left sphenoid sinus. Opacification of multiple mastoid the air cells. Orbits: Unremarkable. Pituitary: Not enlarged. Vasculature: Normal flow voids. No dural venous sinus thrombosis IMPRESSION: Heterogeneous mass noted at the left petrous apex measuring 4.5 cm in greatest dimension. CT recommen ded for further evaluation for better resolution of bony detail. DATA REPOSITORY:
[2024-09-12] MEDS: Gadoterate meglumine 20 ML SYRINGE IVP (15:10)
[2024-09-12] MEDS: Normal Saline Flush 10 ML SYR IVP (15:12)
--- NOTE | 2024-09-12 17:30 | DI.VRAD_ITS ---
PROCEDURE INFORMATION: Exam: MR Head Without and With Contrast Exam date and time: 09/12/2024 2:46 PM Age: 74 years old Clinical indication: Other: HX of brain mass in 2006, headaches, vertig TECHNIQUE: Imaging protocol: Magnetic resonance imaging of the head without and with contrast. COMPARISON: No relevant prior studies available. FINDINGS: Brain: There is no restricted diffusion within the brain. There is no intraperitoneal hemorrhage. Moderate cerebral atrophy is observed. Extensive perivascular spaces are noted in the basal ganglia bilaterally. There is no midline shift. There is no intraparenchymal mass. There are no subdural fluid collections. The brainstem and cerebellum are unremarkable. The left petrous apex mass protrudes into the left cerebellar pontine angle, without displacement of the cerebellum or brainstem. 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 Cerebral ventricles: Normal. No ventriculomegaly. Pituitary gland and sella: Normal pituitary gland and infundibulum. Bones: A mass is present in the left temporal bone petrous apex. The extent of the mass is best visualized on the T2 sequences, where the mass is measured at 4.4 x 2.8 x 2.6 cm. See business development representative axial T2 image 7 series [id number]. The periphery of the mass is circumscribed, with a low signal intensity rim on the T2 imaging. The mass contains multiple lobules with variable signal enhancement. At the periphery, the lobules are primarily T2 high-signal intensity, and isointense to soft tissue/muscle on T1. A central lobule is isointense on the T2 sequence, and hyperintense on the T1 sequence. There is minimal enhancement of the mass. Normal marrow signal is observed in the calvarium. Paranasal sinuses: Moderate mucosal thickening is observed in a left-sided sphenoid air cell. Mild mucosal thickening is present on the right side of the sphenoid sinus, throughout the ethmoid air cells, and in the frontal sinus. There is no layering fluid in the paranasal sinuses. Mastoid air cells: Moderate fluid is present in the mastoid air cells bilaterally. There are no other temporal bone masses. There are no lesions in the right petrous apex. The right internal auditory canal is unremarkable, as visualized. The left internal auditory canal is narrow and displaced posteriorly by the petrous apex mass; see axial T2 image 9 series [id number]. The left cochlea and semicircular canals are grossly intact. Orbital cavities: Unremarkable. Vasculature: The left internal carotid artery is displaced anteriorly by the petrous apex mass, affecting the lacerum and cavernous segments. See axial T2 image 8 series [id number]. The exam is negative for dural sinus venous thrombosis. The left-sided sigmoid and transverse sinuses are small, likely developmental variation. Soft tissues: No scalp lesions. Normal parapharyngeal fat spaces. IMPRESSION: Expansile mass, left temporal petrous apex, consistent with a cholesterol granuloma. Correlate with previous imaging/pathology as available. Consider high-resolution temporal bones/internal auditory canal CT for further evaluation. Dictated and Authenticated by: Matthew Gonzales MD. Ordering:GAIL Bobbi Drea BRICENO
== END 2024-09-12 00:38 ==
PROVIDERS: PCP Nurse Practitioner Family; Visit Provider Nurse Practitioner Family
DX: R90.89 Other abnormal findings on diagnostic imaging of central nervous system
CPT/HCPCS: 70553

== ENCOUNTER → 2024-10-15 08:40 | Outpatient (BNVA) | payer MEDICARE, SELFPAY | PROVIDERS: PCP Nurse Practitioner Family; Referring Provider Nurse Practitioner Family; Visit Provider Nurse Practitioner Adult Health | DX: M89.8X8 Other specified disorders of bone, other site (principal); N28.9 Disorder of kidney and ureter, unspecified; R51.9 Headache, unspecified | CPT/HCPCS: 99214 ==

== ENCOUNTER 2024-10-28 02:21 | Outpatient (CLI) | payer MEDICARE, SELFPAY ==
--- NOTE | 2024-10-28 08:15 | DI.CT_ITS ---
Exam(s) CT HEAD NECK WO/W EXAM: CT HEAD NECK WO/W CLINICAL HISTORY: lt skull base mass seen on MRI,M89.8x8. TECHNIQUE: Imaging Protocol: Both noninfused and contrast infused CT scans of the brain were perform ed. IV Contrast Dose =75 cc Axial computed tomography images with coronal and sagittal reformatted images were created and review ed COMPARISON: No exams were available for comparison FINDINGS: BRAIN CT SCAN: There are no skull fractures. Maxillary sinuses partially included are clear. There is mild mucosal t hickening in the frontal sinuses. Sphenoid sinuses are clear. Mild mucosal thickening noted in the et hmoidal air cells. Small amount of fluid noted in the left mastoid air cells. There is an expansile lesion in left skull base within the left petrous temporal bone measuring appro ximately 4 x 2 x 1.5 cm and exhibiting some bony destruction and remodeling and expansion of the lyssa ous apex. There is also some sclerosis-hyperostosis within surrounding bone. This masses causing so me anterior displacement the carotid canal within the left skull base. It also appears to deviate the ipsilateral internal auditory canal. There is no evidence of intracranial hemorrhage, intra or extra-axial. There are no intra-axial ring- enhancing lesions within the brain tissue. No extra-axial fluid collections. Ventricles are not enlar ged or shifted and there is no blood within the ventricular system nor within the basal cisterns. The re is circumferential calcified plaque in the dominant left vertebral artery at the skull base. The r ight vertebral artery ends as the right posterior inferior cerebellar artery and does not appear to c ontribute to the formation of the basilar artery at the skull base. There are no aneurysms evident. NECK CT SCAN: Salivary glands: Unremarkable parotid and submandibular glands. Nasopharynx: Unremarkable Oropharynx: Unremarkable Hypopharynx: Unremarkable. Vocal cords and subglottic airway: Unremarkable. Issa dental: The patient is edentulous Thyroid gland: No obvious nodules Lymph nodes: No significant lymphadenopathy on either side of the neck. Vascular: There is calcified plaque in the proximal right ICA. No critical stenosis. No significant p laque on the opposite-left side. Both internal carotid arteries in the upper neck appear unremarkable . IMPRESSION: No significant findings in the soft tissues of the neck. Main finding here is in the left skull base involving the left petrous temporal bone where there is a n expansile destructive lesion/mass measuring approximately 4 x 2 x 1.5 cm, this displacing the ipsil ateral left carotid canal anteriorly. This mass is associated with some destruction as well as sclero sis of the surrounding bone. To be be considered neoplastic until proven otherwise There are no enhancing lesions within the brain tissue. No evidence of intracranial hemorrhage.. RADIATION DOSE DELIVERED: 2,175.07mGy.cm Total DLP DATA REPOSITORY: All CT scans at this facility are submitted to the National Radiology Data Registry (NRDR) Dose Index Registry (DIR) with the [employer] (A[employer]). RADIATION OPTIMIZATION: All CT scans at this facility use at least one of these dose optimization te chniques: automated exposure control; mA and/or kV adjustment per patient size (includes targeted exa ms where dose is matched to clinical indication); or iterative reconstruction.
[2024-10-28 13:35] LABS: CREATININE 1.3 mg/dL (0.70-1.30); Estimated GFR 58.01 (mL/min/1.73m2)
[2024-10-28] MEDS: Normal Saline - Diluent 50 ML VIAL IJ (14:15)
[2024-10-28] MEDS: Omnipaque 350 MG/ML 100 ML BTL IJ (14:16)
--- NOTE | 2024-10-28 20:46 | DI.VRAD_ITS ---
PROCEDURE INFORMATION: Exam: CT Head Without And With Contrast Exam date and time: 10/28/2024 2:13 PM Age: 74 years old Clinical indication: Lt skull base mass seen on mri TECHNIQUE: Imaging protocol: Computed tomography of the head without and with contrast. Contrast material: OMNIPAQUE 350; Contrast volume: 100 ml; Contrast route: INTRAVENOUS (IV); COMPARISON: MR BRAIN WO/W 09/12/2024 2:46 PM FINDINGS: Brain: There is no acute intracranial hemorrhage, mass effect or midline shift. No large acute territorial infarct identified. There are patchy regions of hypodensity in the periventricular and subcortical white matter, likely on the basis of chronic microvascular ischemic disease. Cerebral ventricles: The ventricles and sulci are prominent in size, which is at least in part due to global cerebral volume loss. Paranasal sinuses: There is mucosal thickening in the bilateral ethmoid and left sphenoid sinus. Mastoid air cells: There is fluid noted in the bilateral air cells greater on the left. Bones: There is an expansile lesion noted within the left petrous apex measuring to 4.0 x 1 9 x 1.5 cm (image 49, series 5). The lesion is predominantly of soft tissue density with evidence of adjacent bony remodeling/osseous destruction and expansion of the petrous apex. Foci of peripheral calcification noted. There is also hyperostosis and increased sclerosis within the associated bone. Soft tissues: No significant subcutaneous soft tissue abnormality. Vasculature: The left internal carotid artery canal is displaced anteriorly. IMPRESSION: 1. No acute intracranial hemorrhage, mass effect or midline shift. 2. Left petrous apex soft tissue mass with significant bony remodeling suggestive of a slow-growing process. Correlate with prior MRI for more detailed description of the soft tissue component. 3. Bilateral mastoid air cell effusions. PROCEDURE INFORMATION: Exam: CT Neck With Contrast Exam date and time: 10/28/2024 2:13 PM Age: 74 years old Clinical indication: Other: Lt skull base mass seen on mri TECHNIQUE: Imaging protocol: Computed tomography of the neck with contrast. Contrast material: OMNIPAQUE 350; Contrast volume: 100 ml; Contrast route: INTRAVENOUS (IV); COMPARISON: MR BRAIN WO/W 09/12/2024 2:46 PM FINDINGS: Salivary glands: Normal. Glands are normal in size. Pharynx: No significant tonsillar enlargement. Larynx: Epiglottis is normal. Thyroid: Normal. No enlarged or calcified nodules. Trachea: Visualized trachea is unremarkable. Lungs: Unremarkable as visualized. Lymph nodes: No lymphadenopathy. Bones/joints: No acute fracture. Redemonstration of prominent left petrous apex mass as described CT head report. There is fusion of the body of C5 and C6 vertebrae. Mild multilevel degenerative changes seen in the cervical spine. Soft tissues: No significant soft tissue swelling. IMPRESSION: Left petrous apex mass as described. Findings suggestive of a chronic lesion and may be compatible with suggestion of cholesterol granuloma on prior MRI. Dictated and Authenticated by: Pauly Jessica MD. Orderin Diana Velasquez MD
== END 2024-10-28 02:41 ==
PROVIDERS: PCP Nurse Practitioner Family; Visit Provider Nurse Practitioner Adult Health
DX: N28.89 Other specified disorders of kidney and ureter (principal); M89.8X8 Other specified disorders of bone, other site
CPT/HCPCS: 70470; 70492; 82565; J3490

== ENCOUNTER 2025-01-26 16:07 | Outpatient (CLI) | payer MEDICARE, SELFPAY ==
--- NOTE | 2025-01-26 15:45 | DI.RAD_ITS ---
Exam(s) XR CHEST 2V PA LATERAL EXAM: XR CHEST 2V PA LATERAL CLINICAL HISTORY: R05.9 Cough, R/O pneumonia. Very wet sounds.. TECHNIQUE: 2D digital imaging was performed. COMPARISON: CR XR CHEST 2V PA LATERAL from 04/25/2024 FINDINGS: 2 views: The aortic valve TAVR again noted. Heart size remains upper normal and the mediastinum is not widened. Mild pulmonary venous hypertension pattern but no airspace pulmonary edema and there are no pleural e ffusions. There are no Christian B lines. IMPRESSION: Aortic valve TAVR Pulmonary venous hypertension pattern but no airspace pulmonary edema. DATA REPOSITORY: RADIATION DOSE DELIVERED:
--- NOTE | 2025-01-26 16:50 | DI.VRAD_ITS ---
PROCEDURE INFORMATION: Exam: XR Chest Exam date and time: 01/26/2025 3:55 PM Age: 74 years old Clinical indication: Cough and other: R/O pneumonia, wet sounds; Prior surgery; Surgery date: 6+ months; Surgery type: Heart TECHNIQUE: Imaging protocol: Radiologic exam of the chest. Views: 2 views. COMPARISON: CR XR CHEST 2V PA LATERAL 04/25/2024 12:06 PM FINDINGS: Lungs: Unremarkable. No consolidation. Pleural spaces: Unremarkable. No pleural effusion. No pneumothorax. Heart/Mediastinum: Prosthetic aortic valve noted. The heart appears normal in size. Bones/joints: Unremarkable. IMPRESSION: No acute interval change Dictated and Authenticated by: Jossue Quezada MD. Orderin Trista Isidro MD
== END 2025-01-26 16:27 ==
LOC: DI 16:08
PROVIDERS: PCP Nurse Practitioner Family; Visit Provider Nurse Practitioner Family
DX: R05.9 Cough, unspecified (principal); R91.8 Other nonspecific abnormal finding of lung field
CPT/HCPCS: 71046

== ENCOUNTER → 2025-02-11 12:36 | Outpatient (BNVA) | payer MEDICARE, SELFPAY | PROVIDERS: PCP Nurse Practitioner Family; Visit Provider Nurse Practitioner Adult Health | DX: R51.9 Headache, unspecified (principal); M89.8X8 Other specified disorders of bone, other site | CPT/HCPCS: 99213 ==

== ENCOUNTER 2025-02-23 02:20 | Outpatient (CLI) | payer MEDICARE, SELFPAY ==
[2025-02-23] MEDS: Methacholine 100 MG VIAL IH (16:47)
[2025-02-23] MEDS: Albuterol HFA 18 GM 200 PUFF INH IH (16:47)
[2025-02-23] MEDS: Inhaler, Assist Device 1 EACH MC (16:47)
--- NOTE | 2025-03-01 10:20 | W.PFT ---
Date of service: 02/23/25 Time of Service: 14:48 Pulmonary Function Test Result Indications: Cough Interpretation Spirometry: There is no baseline airflow limitation. There was a 50% decline in FEV1 with administration of 0.5mg/mL methacholine. Lung Volumes: Normal lung volumes Diffusion Capacity: Normal diffusion Airway Pressure: Normal airways resistance Impression Normal baseline pulmonary function with a positive methacholine challenge Clinical Correlation therefore is recommended.
== END 2025-02-23 02:21 | disposition home or self-care (01) ==
LOC: RT 02:20
PROVIDERS: PCP Nurse Practitioner Family; Visit Provider Nurse Practitioner Family
DX: J45.909 Unspecified asthma, uncomplicated (principal); R05.9 Cough, unspecified; Z87.891 Personal history of nicotine dependence
CPT/HCPCS: 94070; 94726; 94729; 95070; J7674

== ENCOUNTER → 2025-02-24 08:05 | Outpatient (BNVA) | payer MEDICARE, SELFPAY | PROVIDERS: PCP Nurse Practitioner Family; Referring Provider Nurse Practitioner Family; Visit Provider Physician Assistant Surgical | DX: R05.9 Cough, unspecified (principal); J45.909 Unspecified asthma, uncomplicated; Z87.891 Personal history of nicotine dependence | CPT/HCPCS: 99215; 94640; J7620; 36415 ==

== ENCOUNTER 2025-02-24 16:15 | Outpatient (REF) | payer MEDICARE, SELFPAY ==
[2025-02-24 09:35] LABS: Abs Immature Grans 0.06 10^3/uL (0.0-0.06); HCT 40.3 % (40.0-50.0); HGB 13.6 g/dL (13.5-17.5); Immature Grans % 0.8 %; MCH 29.8 pg (27.0-33.0); MCHC 33.7 % (32.0-36.0); MCV 88 fL (80-95); MPV 10.2 fL (8.0-11.0); Platelet Count 164 10^3/uL (130-400); RBC 4.57 10^6/uL (4.36-5.78); RDW 14.1 % (11.8-14.1); RDW-SD 45.6 fL; WBC 7.23 10^3/uL (4.4-10.8)
== END 2025-02-24 16:16 | disposition home or self-care (01) ==
LOC: LBN 16:15
PROVIDERS: PCP Nurse Practitioner Family; Visit Provider Physician Assistant Surgical
DX: J45.909 Unspecified asthma, uncomplicated (principal)
CPT/HCPCS: 82785; 85025

== ENCOUNTER 2025-04-03 19:57 | Emergency (ER) | payer MEDICARE, SELFPAY ==
[2025-04-03] VITALS (36 sets, daily range): BP systolic 143–178; BP diastolic 95–119; PULSE 72–129; RESP 8–34; TEMP 36.8; O2SAT 89–98
[2025-04-03 20:13] LABS: Abs Immature Grans 0.05 10^3/uL (0.0-0.06); HCT 39.7 % (40.0-50.0); HGB 13.1 g/dL (13.5-17.5); Immature Grans % 0.5 %; MCH 29.2 pg (27.0-33.0); MCHC 33.0 % (32.0-36.0); MCV 88 fL (80-95); MPV 10.9 fL (8.0-11.0); Platelet Count 147 10^3/uL (130-400); RBC 4.49 10^6/uL (4.36-5.78); RDW 14.8 % (11.8-14.1); RDW-SD 47.5 fL; WBC 10.29 10^3/uL (4.4-10.8)
[2025-04-03] MEDS: MORPHine 10 MG/ML VIAL 4 MG IVP (20:23)
[2025-04-03] MEDS: Ondansetron O.D.T. 4 MG TABEF PO (20:24)
[2025-04-03 20:26] LABS: ALT 26 U/L (16-63); AST 20 U/L (15-37); Albumin 3.5 g/dL (3.4-5.0); Alkaline Phosphatase 96 U/L (46-116); Anion Gap 8.0 mmol/L (3-11); BUN 13 mg/dL (7-18); Bilirubin, Total 0.7 mg/dL (0.2-1.0); CO2 27.0 mmol/L (21.0-32.0); Calcium 8.8 mg/dL (8.5-10.1); Chloride 105 mmol/L (98-107); Estimated GFR 89.62 (mL/min/1.73m2); Glucose 126 mg/dL (74-106); Magnesium 2.0 mg/dL (1.8-2.4); Potassium 4.1 mmol/L (3.5-5.1); Sodium 140 mmol/L (136-145); Total Protein 6.9 g/dL (6.4-8.2)
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
[2025-04-03] MEDS: Omnipaque 350 MG/ML 100 ML BTL IJ (21:07)
[2025-04-03] MEDS: Normal Saline - Diluent 50 ML VIAL IJ (21:08)
--- NOTE | 2025-04-03 21:11 | DI.CT_ITS ---
Exam(s) CT LUMBAR SPINE RECONS CT ABDOMEN PELVIS W EXAM: CT ABDOMEN PELVIS W and CT lumbar spine recons CLINICAL HISTORY: constipation with ABD pain TECHNIQUE: Imaging Protocol: Axial computed tomography images with coronal and sagittal reformatted images were created and reviewed. CONTRAST MATERIAL: Intravenous: Omnipaque 350 Contrast volume:100 mL Oral: No COMPARISON: MR MR ABDOMEN WO/W from 06/08/[address] CHEST PE CTA from 01/01/[address] CHEST PE CTA from 04/13/[address] LUMBAR SPINE RECONS from 04/03/2025 FINDINGS: ABDOMEN: Lung Bases: There is an aortic valve prosthesis. There is calcification of the mitral annulus. Liver: Normal density. No measurable mass. Portal, Superior Mesenteric, and Splenic Veins: Unremarkable. Gallbladder and Biliary Tract: No radiodense calculus or dilation. Pancreas: Normal density, no abnormal calcifications or inflammatory process. Spleen: Normal. Adrenals: No masses seen. Kidneys: There wedge-shaped areas of decreased attenuation is throughout the right kidney. This was not present on the MRI of the abdomen from 06/08/2023. There is a persistent small left renal posterior subcapsular fluid collection. No radiodense stones or obstructive uropathy. There is a retroaortic left renal vein. Abdominal Aorta: Abdominal portion non-dilated. Mild atherosclerotic calcification is present. Bowel: There is diverticulosis of the colon. There is no evidence of acute diverticulitis. There has been prior gastric surgery for. There is no pneumatosis. The patient reports a prior appendectomy. Peritoneal Cavity: No ascites, collection or mesenteric inflammatory response. No free air. Lymph Nodes: Within normal limits. Bones: Within normal limits for the patient's age. Soft Tissues: Postsurgical changes are seen been line anterior abdominal wall. There is a small fat containing left inguinal hernia. CT scan of the lumbar spine recons: There are age-appropriate degenerative changes seen throughout the lumbar spine. There is L5 spondylolysis with minimal spondylolisthesis of L5 on S1. There is no acute fracture or subluxation present. No large disc herniation is present. There are degenerative changes seen in that cause neural foraminal and mild central spinal canal stenosis at L5-S1 there is mild narrowing of the central spinal canal at L3-L4 and L2-L3.. PELVIS: Bladder: Symmetric distention, no gross wall thickening. Diverticula are seen arising from the urinary bladder bilaterally. There is air seen within the urinary bladder. Reproductive Organs: The prostate gland is mildly enlarged. Lymph Nodes: Within normal limits. Bones: Within normal limits for the patient's age. IMPRESSION: 1. Wedge-shaped areas of decreased attenuation in the right kidney. Differential considerations include renal infarcts or pyelonephritis. Please correlate clinically. 2. Degenerative changes seen in the lumbar spine as described above. No acute fracture or subluxation. 3. Air seen within the urinary bladder. Please correlate with any recent instrumentation/catheterization. 4. The preliminary [facility] report was reviewed. RADIATION DOSE DELIVERED: 494.5mGy.cm Total DLP DATA REPOSITORY: All CT scans at this facility are submitted to the National Radiology Data Registry (NRDR) Dose Index Registry (DIR) with the [employer] (ACR). RADIATION OPTIMIZATION: All CT scans at this facility use at least one of these dose optimization techniques: automated exposure control; mA and/or kV adjustment per patient size (includes targeted exams where dose is matched to clinical indication); or iterative reconstruction.
--- NOTE | 2025-04-03 21:56 | DI.[facility]_ITS ---
PROCEDURE INFORMATION: Exam: CT Abdomen And Pelvis With Contrast Exam date and time: 04/03/2025 8:56 PM Age: 75 years old Clinical indication: Constipation and vomiting; Abdominal pain; Generalized; Prior surgery; Surgery date: 6+ months; Surgery type: Appendectomy. Heart stent; Constipation with abd pain TECHNIQUE: Imaging protocol: Computed tomography of the abdomen and pelvis with contrast. Radiation optimization: All CT scans at this facility use at least one of these dose optimization techniques: automated exposure control; mA and/or kV adjustment per patient size (includes targeted exams where dose is matched to clinical indication); or iterative reconstruction. Contrast material: [id number]; Contrast volume: 100 ml; Contrast route: INTRAVENOUS (IV); COMPARISON: MR ABDOMEN WO/W 06/08/2023 1:15 PM FINDINGS: Liver: Normal. No mass. Gallbladder and biliary ducts: Normal. No calcified stones. No ductal dilation. Pancreas: Normal. No ductal dilation. Spleen: Normal. No splenomegaly. Adrenal glands: Normal. No mass. Kidneys and ureters: Abnormal enhancement identified within the right kidney with findings suggesting the presence of acute pyelonephritis. Stomach and bowel: Sigmoid diverticulosis. Appendix: No evidence of appendicitis. Intraperitoneal space: Unremarkable. No free air. No significant fluid collection. Vasculature: Unremarkable. No abdominal aortic aneurysm. Lymph nodes: Unremarkable. No enlarged lymph nodes. Urinary bladder: Air within the urinary bladder possibly secondary to recent catheterization. Please correlate with medical history. Reproductive: Enlarged prostate gland which measures 4.9 cm by 4.4 cm. Bones/joints: Unremarkable. No acute fracture. Soft tissues: Unremarkable. IMPRESSION: 1. Acute right-sided pyelonephritis. 2. Enlarged prostate gland. 3. Air within the urinary bladder. Please see above. Dictated and Authenticated by: Shai Gross MD. Orderin Ranjan Garcia MD
--- NOTE | 2025-04-03 21:58 | DI.[facility]_ITS ---
PROCEDURE INFORMATION: Exam: CT Lumbar Spine Without Contrast Exam date and time: 04/03/2025 8:56 PM Age: 75 years old Clinical indication: Low back pain and other: Abd pain; Lower back/abd pain TECHNIQUE: Imaging protocol: Computed tomography of the lumbar spine without contrast. Radiation optimization: All CT scans at this facility use at least one of these dose optimization techniques: automated exposure control; mA and/or kV adjustment per patient size (includes targeted exams where dose is matched to clinical indication); or iterative reconstruction. COMPARISON: MR ABDOMEN WO/W 06/08/2023 1:15 PM FINDINGS: Bones/joints: Normal alignment of the lumbar vertebral bodies and discs. No acute fracture. Bilateral spondylolysis at L5-S1 with a mild anterolisthesis of L5 in relation to S1. Mild spinal stenosis identified at L2-L3 secondary to a mild diffuse disc bulge, facet arthropathy and posterior ligamentous hypertrophy. Mild spinal stenosis at L3-L4 secondary to mild diffuse disc bulge, facet arthropathy and posterior ligamentous hypertrophy. Neural foraminal narrowing identified at several levels secondary to facet arthropathy. Soft tissues: Unremarkable. IMPRESSION: 1. No acute fracture. 2. Bilateral spondylolysis of L5-S1 resulting in a mild anterolisthesis of L5 in relation to S1. 3. Mild spinal stenoses identified at L2-L3 and L3-L4 as detailed above. Dictated and Authenticated by: Shai Gross MD. Orderin Ranjan Garcia MD
--- NOTE | 2025-04-03 22:15 | RT.EKG_ITS ---
APPROVED REPORT Exam: Resting ECG Reason for Exam: evaluate prolonged QT Patient Location: E HR:91 bpm ECG Measurements Heart Rate 91 AXIS MS [id number] P [id number] QRSd 139 QRS -26 QT 411 T 100 QTc 506 Conclusion Atrial fibrillation...V-rate 82- 99, irreg A-activity Left bundle branch block...QRSd>120, broad/notched R pHYSICIAN: UNCHANGED, Negative for sgarbossa
[2025-04-03 23:15] LABS: Glucose Negative (Negative)
[2025-04-03] MEDS: cefTRIAXone 1 GM/50 ML BAG IVPB (23:56)
[2025-04-03] MEDS: Lidocaine 5% Patch 1 PATCH TP (23:56)
== END 2025-04-04 00:13 | disposition home or self-care (01) ==
PROVIDERS: Emergency Provider Nurse Practitioner Family; PCP Nurse Practitioner Family
DX: N10 Acute pyelonephritis (principal); R03.0 Elevated blood-pressure reading, without diagnosis of hypertension; R10.31 Right lower quadrant pain; Z85.028 Personal history of other malignant neoplasm of stomach
CPT/HCPCS: 99284; 99285; 96375; 36415; 80053; 93005; 96365; 74177; 81003; 83735; 85025; 93010; J0696; J2270; J3490

== ENCOUNTER → 2025-04-29 10:31 | Outpatient (BNVA) | payer MEDICARE, SELFPAY | PROVIDERS: PCP Nurse Practitioner Family; Referring Provider Nurse Practitioner Family; Visit Provider Physician Assistant Surgical | DX: R05.9 Cough, unspecified (principal); J45.909 Unspecified asthma, uncomplicated; Z87.891 Personal history of nicotine dependence | CPT/HCPCS: 99214 ==

== ENCOUNTER 2025-05-13 01:45 | Outpatient (CLI) | payer MEDICARE, SELFPAY ==
--- NOTE | 2025-05-13 14:15 | DI.US_ITS ---
APPROVED REPORT EXAM: Comprehensive 2D, Doppler, and color-flow Echocardiogram Patient Location: Out-Patient [employer]s Receivable Executive: Rex Monsivais RDCS (AE) Indications: Dyspnea, h/o aortic valve replacement Other Information Study Quality: Fair. Technically limited study due to body habitus. Conclusion Normal left ventricular wall thickness and chamber size. Ejection fraction is 50%. There is very mild generalized hypokinesis Normal right ventricular size and function Both atria are moderately enlarged There is a bioprosthetic aortic valve. Mean gradient is 9 mmHg. There is no aortic regurgitation Mitral annular calcification. Mild mitral regurgitation Wall motion Left Ventricle The left ventricle is normal size. Left ventricular systolic function is borderline. There is normal left ventricular wall thickness. Mild generalized hypokinesis There is no ventricular septal defect visualized. LVEF is 50%. Right Ventricle The right ventricle is normal size. The right ventricular systolic function is normal. Atria Left atrium is moderately dilated. Right atrium is moderately dilated. The interatrial septum is intact with no evidence for an atrial septal defect. Aortic Valve Patient had TAVR placed in 2021. Mean gradient is 9 mmHg No aortic regurgitation is present. Mitral Valve Moderate mitral annular calcification. No evidence of mitral valve stenosis. Mild mitral regurgitation. Tricuspid Valve The tricuspid valve is normal in structure. There is no tricuspid valve stenosis. Trace tricuspid regurgitation. Pulmonic Valve The pulmonary valve is normal in structure. There is no pulmonic valvular stenosis. There is no pulmonic valvular regurgitation. Great Vessels The aortic root is normal in size. Ascending aorta is not well visualized. Aortic arch is normal in caliber. IVC is normal in size and collapses >50% with inspiration. Pericardium There is no pericardial effusion. 2D Dimensions IVSD d PLAX 0.85 cm M: 0.6-1.2 Ao Root d 2.38 cm M: 3.1 - 3.7 LVPW d PLAX 0.87 cm M: 0.6 - 1.2 LVID d PLAX 4.62 cm M: 4.2 - 5.8 LVDs 3.29 cm M: 2.5 - 4.0 LV EF Teichholz 55.4 % FS 28.83 % LV EDV (Teich) 98.5 mL LV ESV (Teich) 43.8 mL Stroke Vol Index (Teich) 25.68 M-Mode TAPSE 1.94 cm (M/F) >1.7 Auto EF LV EDV A4C 125.6 mL LV EDV A2C 113.8 mL LV EDV BP 118.2 mL LV ESV A4C 63.2 mL LV ESV A2C 56.7 mL LV ESV BP 59.3 mL LVEF(%) A4C 49.7 % LVEF(%) A2C 50.2 % LVEF(%) BP 49.8 % LV SV A4C 62.4 ml LV SV A2C 57.2 ml LV SV BP 58.9 ml LV CO A4C 6.3 L/min LV CO A2C 4.6 L/min LV CO BP 5.4 L/min HR A4C 100.56 BPM HR A2C 80.72 BPM LV EDV Index (BP) LA Volume LA Length A4C 6.0 cm LA Length A2C LA Area A4C s 23.89 cm2 LA Area A2C s LA Vol A4C A-L 80.44 mL LA Vol A2C A-L LA Vol Biplane A-L LA Vol A4C MOD 75.7 mL LA Vol A2C MOD LA Vol BP MOD RA Volume RA Area A4C 15.0 cm2 RA ESV A4C (A-L) 32.1mL RA Vol/BSA A4C A-L RA Length A4C 6.0 cm RA ESV A4C (MOD) 31.7mL LV Diastology MV E' medial 0.056 (>0.07 m/s) MV E Vmax 1.58 (0.4-1.3 m/s) MV E' lateral 0.059 (>0.1 m/s) Aortic Valve AoV Vmax 2.07 m/s LVOT Vmax 0.93 m/s AoV Peak Grad 17.2 mmHg LVOT Peak Grad 3.4 mmHg AoV Area (Vmax) 1.38 cm2 LVOT VTI 0.177 m AoV VTI 0.410 m LVOT Mean Grad 2.4 mmHg AoV Mean Sourav. 1.36 m/s LVOT SV 54.32 mL AoV Mean Grad 8.7 mmHg LVOT Diam s 1.95 cm AoV Area (VTI) 1.32 cm2 AV Regurg Peak Gr. 17.15 mmHg Velocity Ratio 0.45 Pulmonary Valve PV Vmax 0.77 (0.5-1.5 m/s) RVOT Vmax 0.42 m/s PV Peak Grad 2.4 mmHg RVOT Peak Gr. 0.7 mmHg PV Mean Sourav 0.51 m/s RVOT VTI 0.072 m PV Mean Grad 1.2 mmHg RVOT Mean Gr. 0.4 mmHg
== END 2025-05-13 02:05 ==
LOC: DI 01:45
PROVIDERS: PCP Nurse Practitioner Family; Visit Provider Physician Assistant Surgical
DX: Z95.2 Presence of prosthetic heart valve (principal)
CPT/HCPCS: 93306

== ENCOUNTER → 2025-06-22 12:37 | Outpatient (BNVA) | payer MEDICARE, SELFPAY | PROVIDERS: PCP Nurse Practitioner Family; Referring Provider Nurse Practitioner Family; Visit Provider Psychiatry & Neurology Neurology | DX: R51.9 Headache, unspecified (principal); M89.8X8 Other specified disorders of bone, other site | CPT/HCPCS: 99213 ==

== ENCOUNTER → 2025-06-30 12:42 | Outpatient (BNVA) | payer MEDICARE, SELFPAY | PROVIDERS: PCP Nurse Practitioner Family; Referring Provider Nurse Practitioner Family; Visit Provider Nurse Practitioner Gerontology | DX: N40.1 Benign prostatic hyperplasia with lower urinary tract symptoms (principal); N13.8 Other obstructive and reflux uropathy; R33.9 Retention of urine, unspecified | CPT/HCPCS: 99215; 81002; 51798 ==

== ENCOUNTER 2025-06-30 13:59 | Outpatient (CLI) | payer MEDICARE, SELFPAY ==
[2025-06-30 23:17] LABS: PSA, Diagnostic 0.4 ng/mL (<=6.5)
== END 2025-06-30 14:00 | disposition home or self-care (01) ==
LOC: LBO 14:00
PROVIDERS: PCP Nurse Practitioner Family; Visit Provider Nurse Practitioner Gerontology
DX: N40.1 Benign prostatic hyperplasia with lower urinary tract symptoms (principal); N13.8 Other obstructive and reflux uropathy; R33.9 Retention of urine, unspecified
CPT/HCPCS: 36415; 84153

== ENCOUNTER → 2025-07-29 10:53 | Outpatient (BNVA) | payer MEDICARE, SELFPAY | PROVIDERS: PCP Nurse Practitioner Family; Referring Provider Nurse Practitioner Family; Visit Provider Internal Medicine Pulmonary Disease | DX: J45.50 Severe persistent asthma, uncomplicated (principal); R05.9 Cough, unspecified; R06.00 Dyspnea, unspecified; Z87.891 Personal history of nicotine dependence | CPT/HCPCS: 99214 ==